=== PATIENT | female | born 1985 | race Caucasian/White ===

== ENCOUNTER 2017-03-21 09:33 | Emergency (ER) | payer OTHER ==
[2017-03-21 09:42] VITALS: TEMP 97.8
[2017-03-21] MEDS ORDERED: ACETAMINOPHEN TAB 325 MG TAB PO STA (09:54)
--- NOTE | 2017-03-21 09:59 | ED ---
Back Pain HPI - General Chief Complaint: Back Pain/Injury Stated Complaint: pain, 10 weeks preg Time Seen by Provider: 03/21/17 09:43 Source: patient, RN notes reviewed Limitations: no limitations - History of Present Illness Initial Comments: Patient is 28-year-old female since he was here for evaluation of back pain. Patient states she was very found out she is . Patient states her last menstrual cycle was 01/18/17 that only lasted about 3 days. Patient states she is unable to see an HOT METAL MIXER OPERATOR until 2 weeks from now. Patient states she has a history of chronic mid back pain. Patient states she was going to dial painter. Patient states when she found out she is she discontinue taking all her medications. Patient states she's been off all her medications for the past 4 weeks. Patient states over the past 3 days she began developing lower back pain. 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 Patient states that she only was up to 5 pounds. Patient denies recent falls or trauma to her back. Patient denies actually twisting the wrong way. Patient denies pain radiating down her legs. Patient denies paresthesias. Patient denies saddle anesthesia. Patient denies urine or fecal incontinence. Patient also states been developing lower abdominal pain. Patient states she has a history of 1 previous about 10 years ago which resulted in a section. Patient denies vaginal bleeding. Patient denies abnormal vaginal discharge. Patient does states she has a history of herpes. Patient states is not currently active. Patient also states that she was diagnosed with cervical cancer about 10 years ago. Patient states she was treated by belly dancer and has not followed up with anyone since. Patient denies taking any Tylenol for pain. - Related Data Previous Rx's Medication Instructions Recorded Acetaminophen-Codeine 300-30mg 1 each PO Q4H PRN #10 tablet 03/12/16 [Tylenol #3] Penicillin V Potassium [Pen Vee K] 500 mg PO QID #40 tab 03/12/16 Allergies Allergy/AdvReac Type Severity Reaction Status Date / Time methocarbamol [From Robaxin] Allergy Rash/Hives Verified 03/21/17 09:42 Sulfa (Sulfonamide Allergy Rash/Hives Verified 03/21/17 09:42 Antibiotics) Review of Systems ROS Statement: Those systems with pertinent positive or pertinent negative responses have been documented in the HPI. ROS Other: All systems not noted in ROS Statement are negative. Past Medical History Past Medical History: Fibromyalgia, Seizure Disorder Additional Past Medical History / Comment(s): DDD. SEIZURES IN PAST DUE TO TRAUMA History of Any Multi-Drug Resistant Organisms: None Reported Past Surgical History: Section, Orthopedic Surgery, Tonsillectomy Past Psychological History: Anxiety, Bipolar, Depression Smoking Status: Current every day smoker Past Alcohol Use History: None Reported Past Drug Use History: Marijuana General Exam - General Exam Comments Initial Comments: Sitting in exam room, no acute distress. Limitations: no limitations General appearance: alert, in no apparent distress Head exam: Present: atraumatic, normocephalic, normal inspection Eye exam: Present: normal appearance ENT exam: Present: normal exam Neck exam: Present: normal inspection Respiratory exam: Present: normal lung sounds bilaterally. Absent: respiratory distress Cardiovascular Exam: Present: regular rate, normal rhythm, normal heart sounds GI/Abdominal exam: Present: soft, tenderness (Suprapubic pain), normal bowel sounds. Absent: distended, guarding, rebound, rigid External exam: Present: normal external exam Speculum exam: Present: normal speculum exam By manual exam: Present: normal by manual exam Extremities exam: Present: normal inspection Back exam: Present: normal inspection Neurological exam: Present: alert, oriented X3, CN II-XII intact, normal gait Psychiatric exam: Present: normal affect, normal mood Skin exam: Present: warm, dry, intact, normal color. Absent: rash Course Vital Signs 03/21/17 03/21/17 09:40 10:45 Temperature 97.8 F Pulse Rate 94 68 Respiratory 20 16 Rate Blood Pressure 130/81 118/56 O2 Sat by Pulse 99 100 Oximetry Medical Decision Making - Medical Decision Making Patient is a 31-year-old female presents to the emergency room for evaluation low back pain and abdominal pain. Back pain consistent with low back muscle spasming. Patient given Tylenol. Ultrasound shows no acute findings. Patient does have a viable IUP 8 weeks. Advised patient to follow-up with HOT METAL MIXER OPERATOR. Patient states she understands everything that was discussed with her. Return parameters discussed. Case discussed with Dr. Cai. - Lab Data Lab Results 03/21/17 03/21/17 03/21/17 Range/Units 09:55 09:55 10:09 Urine Color Yellow Urine Appearance Turbid H (Clear) Urine pH 8.0 (5.0-8.0) Ur Specific [place] 1.011 (1.001-1.035) Urine Protein Negative (Negative) Urine Glucose (UA) Negative (Negative) Urine Ketones Negative (Negative) Urine Blood Negative (Negative) Urine Nitrite Negative (Negative) Urine Bilirubin Negative (Negative) Urine Urobilinogen <2.0 (<2.0) mg/dL Ur Leukocyte Esterase Negative (Negative) Ur Squamous Epith Cells 2 (0-4) /hpf Amorphous Sediment Many H (None) /hpf Urine Bacteria Rare H (None) /hpf Urine Mucus Rare H (None) /hpf Urine HCG, Qual Detected (Not Detectd) Trichomonas Ag (Rapid) Negative (Negative) - Radiology Data Radiology results: report reviewed, image reviewed Disposition Clinical Impression: Acute low back pain, Abdominal pain during Disposition: HOME SELF-CARE Condition: Good Instructions: Acute Low Back Pain (ED), Abdominal Pain in (ED) Additional Instructions: Take Tylenol as needed for pain. Alternate ice and heat. Please follow up with HOT METAL MIXER OPERATOR. If any new symptom arises or symptoms worsen, return to ER as soon as possible. Referrals: Tyler Quintero DO [Doctor of Osteopathic Medicine] - 1-2 days Time of Disposition: 10:58
[2017-03-21 10:10] LABS: Amorphous Sediment,Urine Many /hpf; Appearance,Urine Turbid (Clear); Bacteria,Urine Rare /hpf; Bilirubin,Urine Negative (Negative); Glucose,Urine (UA) Negative (Negative); Ketones,Urine Negative (Negative); Leukocyte Esterase,Urine Negative (Negative); Mucus,Urine Rare /hpf; Nitrite,Urine Negative (Negative); Particle Count 43600; Protein,Urine Negative (Negative); Specific Gravity,Urine 1.011 (1.001-1.035); Squamous Epithelial Cell,Urine 2 /hpf (0-4); UA Billing (MACRO vs. MICRO) MICRO; Urobilinogen,Urine <2.0 mg/dL (<2.0)
[2017-03-21 10:47] VITALS: BP 118/56; PULSE 68; RESP 16
--- NOTE | 2017-03-21 10:48 | US ---
EXAMINATION TYPE: US OB <=14 wks DATE OF EXAM: 03/21/2017 COMPARISON: NONE CLINICAL HISTORY: Pain. Pt states back pain x 1 day EXAM PERFORMED: Transabdominal (TA) EXAM MEASUREMENTS: GESTATIONAL AGE / DATING Physician Established: Not yet established Dates by LMP: (8 weeks/6 days) EDC: 10/25/2017 Dates by First Scan: No prior Dates by Current Scan for: (8 weeks/0 days) EDC: 10/31/2017 MATERNAL ANATOMY Uterus: 8.9 x 5.6 x 6.2 cm Right Ovary: 1.9 x 1.7 x 1.6 cm Left Ovary: 3.9 x 2.8 x 2.9 cm Post CDS / Adnexa: wnl Presence of free fluid: No Presence of corpus luteal cyst: Left Ovary= 2.7 x 2.3 x 2.2 cm Presence of subchorionic bleed: No GESTATION / SURVEY CRL: 1.6 cm (8 weeks/0 days) MSD: wnl Yolk Sac (normal less than 6mm): 3mm Heart Rate: 157 bpm Rhythm: Normal IUP: Viable IUP Date of LMP: 01/18/2017 IMPRESSION: Single, viable IUP/ No abnormality seen at this time. Left ovarian corpus luteal cyst.
== END 2017-03-21 11:06 | disposition home or self-care (01) ==
LOC: EC 09:33
DX: O99.89 Other specified diseases and conditions complicating pregnancy, childbirth and the puerperium (principal); O99.331 Smoking (tobacco) complicating pregnancy, first trimester; M54.5 Low back pain; R10.30 Lower abdominal pain, unspecified; F17.200 Nicotine dependence, unspecified, uncomplicated; Z3A.08 8 weeks gestation of pregnancy; Z88.2 Allergy status to sulfonamides; Z88.8 Allergy status to other drugs, medicaments and biological substances
CPT/HCPCS: 76801; 81001; 81025; 87070; 87205; 87491; 87591; 87808; 99284

== ENCOUNTER → 2017-04-09 | Outpatient (CLI) | payer OTHER ==
--- NOTE | 2017-04-09 09:32 | US ---
EXAMINATION TYPE: US OB <= 14 wk fetus DATE OF EXAM: 04/09/2017 COMPARISON: US March 21, 2017 CLINICAL HISTORY: Confirm Dates Z36. EXAM PERFORMED: Transabdominal (TA) EXAM MEASUREMENTS: GESTATIONAL AGE / DATING Physician Established: not eshablished Dates by LMP: ( 11 weeks/4 days) EDC: 10/25/2017 Dates by First Scan: (10 weeks/5 days) EDC: 10/31/2017 Dates by Current Scan for: (11 weeks/1 days) EDC: 10/28/2017 MATERNAL ANATOMY Uterus: 11.9 x 7.9 x 9.3 Right Ovary: not visualized Left Ovary: 3.1 x 2.4 x 3.3 Post CDS / Adnexa: wnl Presence of free fluid: none Presence of corpus luteal cyst: left ovary measuring 2.0 x 1.8 x 1.7 Presence of subchorionic bleed: hypoechoic area around sac measuring 4.0 x 1.3 x 5.4 GESTATION / SURVEY CRL: 4.2 cm (11 weeks/1 days) Yolk Sac (normal less than 6mm): not seen Heart Rate: 149 bpm Rhythm: Normal IUP: Viable IUP Date of LMP: 01/18/2017 viable IUP that correlates with LMP. On current study yolk sac is not identified. Gestational sac and pole are redemonstrated. Note is made of new fairly moderate sized subchorionic hemorrhage along the deeper aspect of the gestation al sac. No free fluid is seen in pelvic cul-de-sac. On current study distinct right ovary is not clearly seen. IMPRESSION: Single live intrauterine gestation is redemonstrated. Mean crown-rump length is 4.2 cm corresponding to 11 weeks 1 day old fetus. New moderate size subchorionic hemorrhage is felt present. Consider shor t-term ultrasound follow-up.
== END | disposition home or self-care (01) ==
LOC: RADUSWWP 07:38
PROVIDERS: ATTEND Obstetrics & Gynecology
DX: Z36 Encounter for antenatal screening of mother (principal); Z3A.11 11 weeks gestation of pregnancy
CPT/HCPCS: 76801

== ENCOUNTER → 2017-04-12 | Outpatient (CLI) | payer OTHER ==
[2017-04-12 09:55] LABS: CH 30.8; CHCM 34.1; HCT 35.4 % (34.0-46.0); HDW 2.43; HGB 11.7 gm/dL (11.4-16.0); MCHC 33.1 g/dL (31.0-37.0); MCV 90.6 fL (80.0-100.0); RBC 3.91 m/uL (3.80-5.40); RDW 13.3 % (11.5-15.5); WBC 9.6 k/uL (3.8-10.6)
[2017-04-12 10:26] LABS: Non-African American GFR(MDRD) >60 (>60 ml/min/1.73 sqM)
[2017-04-12 10:57] LABS: Hepatitis B Surface Ag Index 0.05
[2017-04-12 16:46] LABS: Treponemal Ab Non-Reactive (Non-Reactive)
[2017-04-13 04:35] LABS: Toxoplasma Antibody (IgG) <3.0 IU/mL (<7.2)
== END | disposition home or self-care (01) ==
LOC: LABWHC1 08:33
PROVIDERS: ATTEND Obstetrics & Gynecology
DX: Z34.81 Encounter for supervision of other normal pregnancy, first trimester (principal)
CPT/HCPCS: 36415; 82565; 82950; 85027; 86762; 86777; 86778; 86780; 86850; 86900; 86901; 87340; 87390

== ENCOUNTER → 2017-06-02 | Outpatient (CLI) | payer OTHER ==
[2017-06-03 09:41] LABS: Alpha Fetoprotein 63.3 ng/mL; B-HCG (M.O.M.) 1.38; Gestational Age (days) 2; Human Chorionic Gonadotropin 23.9 IU/mL; Inhibin A (M.O.M.) 0.59; Interpretation SeeBelow; Maternal Age at EDD (Yrs) 30; Smoker Yes; Unconjugated Estriol (M.O.M.) 1.04
== END | disposition home or self-care (01) ==
LOC: LABWHC1 08:16
PROVIDERS: ATTEND Obstetrics & Gynecology
DX: Z34.02 Encounter for supervision of normal first pregnancy, second trimester (principal)
CPT/HCPCS: 36415; 82105; 82677; 84702; 86336

== ENCOUNTER 2017-10-25 01:00 | Inpatient (IN) | payer OTHER ==
[2017-10-25] MEDS ORDERED: LACTATED RINGERS 1,000 ML IV SCH ×2 (01:28)
[2017-10-25] MEDS ORDERED: CITRIC ACID-SODIUM CITRATE 15 ML CUP PO ONE (01:32)
[2017-10-25 02:06] VITALS: BMI 26.4
[2017-10-25 03:15] LABS: Basophils # (A) 0.1 k/uL (0-0.2); Basophils % (A) 0 %; Eosinophils # (A) 0.1 k/uL (0-0.7); Eosinophils % (A) 1 %; HCT 33.6 % (34.0-46.0); Lymphocytes # (A) 3.5 k/uL (1.0-4.8); Lymphocytes % (A) 22 %; MCH 28.9 pg (25.0-35.0); MCHC 32.8 g/dL (31.0-37.0); MCV 88.1 fL (80.0-100.0); Mean Platelet Volume 8.3; Monocytes # (A) 0.6 k/uL (0-1.0); Monocytes % (A) 4 %; Neutrophils % (A) 71 %; Platelet Count 463 k/uL (150-450); RBC 3.82 m/uL (3.80-5.40); WBC 15.5 k/uL (3.8-10.6)
[2017-10-25] MEDS ORDERED: ceFAZolin IN SWFI 2 GM/20 ML SYRINGE IVP ONE (05:30)
[2017-10-25] MEDS ORDERED: MORPHINE SULFATE (PF) 0.3 MG/0.3 ML SYR ONE (06:00)
[2017-10-25] MEDS ORDERED: OXYTOCIN 10 UNIT/ML 1 ML VIAL ONE (06:00)
[2017-10-25] MEDS ORDERED: KETOROLAC 30 MG/ML 1 ML VIAL ONE (06:00)
[2017-10-25] MEDS ORDERED: diphenhydrAMINE 50 MG/ML 1 ML VIAL ONE (06:00)
[2017-10-25] MEDS ORDERED: ONDANSETRON 4 MG/2 ML VIAL ONE (06:00)
[2017-10-25] MEDS ORDERED: DEXAMETHASONE SOD PHOS (MDV) 100 MG/10 ML VIAL ONE (06:00)
[2017-10-25] MEDS ORDERED: NALBUPHINE 10 MG/ML AMPUL ONE (06:00)
--- NOTE | 2017-10-25 06:57 | P.HPOB ---
History of Present Illness H&P Date: 10/25/17 Chief Complaint: Spontaneous rupture of membranes This is a 32-year-old female 3 para 1 with an estimated date of confinement of 10/25/2017, estimated gestational age of 40-0/7 weeks, who presents to labor and delivery with complaints of spontaneous rupture membranes at approximately 12:15 AM today. She denied any regular contractions. care has been with Dr. Quintero and has been uncomplicated per patient. labs: HIV-nonreactive Syphilis antibody-nonreactive 1 hour Glucola-58 Hepatitis B surface antigen-negative Hemoglobin-11.7 Toxoplasma-negative Rubella-low positive Blood type-A+ Antibody screen-negative Quad screen-negative Group B streptococcus-negative Obstetrical history: . History of 1 miscarriage and 1 section at 36 weeks for preeclampsia and gestational diabetes. Review of Systems Constitutional: Denies chills, Denies fever Eyes: denies blurred vision, denies pain Cardiovascular: Denies chest pain, Denies shortness of breath Respiratory: Denies cough Genitourinary: Reports Musculoskeletal: Reports low back pain Integumentary: Denies pruritus, Denies rash Neurological: Denies numbness, Denies weakness Psychiatric: Denies anxiety, Denies depression Past Medical History Past Medical History: Cancer, Fibromyalgia, Seizure Disorder Additional Past Medical History / Comment(s): Hx DDD,cervical CA,SEIZURES for approx 6 mos due to a closed head injury approx 2009. History of Any Multi-Drug Resistant Organisms: None Reported Past Surgical History: Section, Orthopedic Surgery, Tonsillectomy Additional Past Surgical History / Comment(s): cyst removed rt labia Past Anesthesia/Blood Transfusion Reactions: Motion Sickness Additional Past Anesthesia/Blood Transfusion Reaction / Comment(s): states "grandmother has hx fungal meningitis r/t ear infection/ran high fever with ear surgery-pt not sure if fever r/t meningitis or anesthesia."Pt also states "has had no problems with prior anesthesia." Past Psychological History: Anxiety, Bipolar, Depression Smoking Status: Current every day smoker Past Alcohol Use History: None Reported Additional Past Alcohol Use History / Comment(s): started smoking at age 10-1 and 1 1/2ppd Past Drug Use History: Marijuana Additional Drug Use History / Comment(s): no marijuana in 6-7 mos - Past Family History Mother Family Medical History: Cancer Additional Family Medical History / Comment(s): cervical Medications and Allergies Home Medications Medication Instructions Recorded Confirmed Type Pnv,Calcium 72/Iron/Folic Acid 1 tab PO DAILY 07/13/17 10/21/17 History [ Plus Tablet] Allergies Allergy/AdvReac Type Severity Reaction Status Date / Time latex Allergy Swelling,itching,skin Verified 10/25/17 01:11 redness methocarbamol [From Robaxin] Allergy Rash/Hives Verified 10/25/17 01:11 Sulfa (Sulfonamide Allergy Rash/Hives Verified 10/25/17 01:11 Antibiotics) Exam Osteopathic Statement: *. No significant issues noted on an osteopathic structural exam other than those noted in the History and Physical/Consult. - Vital Signs Vital signs: Vital Signs Temp Pulse Resp BP 10/25/17 01:32 97.2 F L 103 H 16 148/74 10/25/17 01:28 97.2 F L 103 H 16 148/74 Intake and Output 10/24/17 10/24/17 10/25/17 14:59 22:59 06:59 Other: Weight 74.389 kg Patient Weight 10/25/17 06:59 Weight 74.389 kg HEENT: Within normal limits Heart: Regular rate and rhythm Lungs: Clear to auscultation bilaterally Abdomen: Soft, nontender heart tones: Reactive Contractions: Rare Cervix exam: Positive amnisure with clear fluid noted. Cervix closed. Extremities: Negative Homans Results Result Diagrams: 10/25/17 02:30 Abnormal Lab Results - Last 24 Hours (Table) 10/25/17 Range/Units 02:30 WBC 15.5 H (3.8-10.6) k/uL Hgb 11.0 L (11.4-16.0) gm/dL Hct 33.6 L (34.0-46.0) % Plt Count 463 H (150-450) k/uL Neutrophils # 11.0 H (1.3-7.7) k/uL Assessment and Plan (1) 40 weeks gestation of Current Visit: Yes Status: Acute Code(s): Z3A.40 - 40 WEEKS GESTATION OF SNOMED Code(s): 95743769 (2) Previous delivery affecting Current Visit: Yes Status: Acute Code(s): O34.219 - MATERNAL CARE FOR UNSP TYPE SCAR FROM PREVIOUS DEL SNOMED Code(s): 392733001 (3) Family planning Current Visit: Yes Status: Acute Code(s): Z30.09 - ENCOUNTER FOR OTH GENERAL CNSL AND ADVICE ON CONTRACEPTION SNOMED Code(s): 912110439 Plan: Admission. We'll proceed with repeat section with bilateral partial salpingectomy. I have discussed the risks, benefits, and alternative therapies for the above- mentioned procedure and for both sedation/anesthesia as well as necessary blood products administration, if indicated, as they pertain to this patient. The patient has indicated her understanding and acceptance of the risks and procedures discussed.
[2017-10-25] MEDS ORDERED: CELLULOSE,OXIDIZED 1 EACH EACH MISCELLANE ONE (07:05)
--- NOTE | 2017-10-25 07:05 | P.OP ---
Date of Procedure: 10/25/17 Preoperative Diagnosis: 1. Intrauterine at 40-0/7 weeks. 2. History of previous section. 3. Family-planning. Postoperative Diagnosis: Same Procedure(s) Performed: Repeat low transverse section Bilateral partial salpingectomy Anesthesia: spinal (Duramorph) Surgeon: Darline Nevarez [employer] Manager #1: Shannon Pettit Estimated Blood Loss (ml): 600 Pathology: other (Placenta, portions of right and left fallopian tubes) Condition: stable Disposition: floor Indications for Procedure: This is a 32-year-old female 3 para 1 at 40-0/7 weeks who presented with rupture of membranes with clear fluid noted. She was not noted to be solitario at the time. She was then scheduled for a repeat section with bilateral partial salpingectomy for later in the morning. I have discussed the risks, benefits, and alternative therapies for the above- mentioned procedure and for both sedation/anesthesia as well as necessary blood products administration, if indicated, as they pertain to this patient. The patient has indicated her understanding and acceptance of the risks and procedures discussed. Operative Findings: A viable male infant is noted in the vertex presentation with scores of 9 at 1 minute and 9 at 5 minutes and weight of 7 lbs. 3 oz. Normal uterus tubes and ovaries are noted. There is noted to be some omental adhesions to the left ovary and tube area. Description of Procedure: The patient is taken to the operating room where she is placed in the dorsal supine position with leftward tilt after spinal Duramorph anesthesia is given. She is prepped and draped in the normal sterile fashion. Skin was tested and found to be adequately anesthetized. A Pfannenstiel skin incision was made with a scalpel through the previous laparotomy scar. A second knife was used to carry the incision down to the underlying layer of fascia. The fascia was nicked in the midline with a scalpel and then extended laterally bilaterally with Dent scissors. The anterior lip of the fascia was grasped with 2 Angela clamps and then dissected off the underlying rectus muscle in the midline with Dent scissors. The inferior aspect of the fascial incision was grasped with 2 Angela clamps and dissected off the underlying rectus muscle and the midline with Dent scissors. Next the peritoneum layer was tented up with 2 hemostats and then entered sharply with the scalpel. The incision is extended superiorly and inferiorly with Metzenbaum scissors. Next a DeLee retractor is placed. The vesicouterine peritoneum is entered sharply with Metzenbaum scissors and extended laterally bilaterally with Metzenbaum scissors and then the bladder flap is pushed inferiorly. The lower uterine segment is incised in transverse fashion with the scalpel and then bluntly entered with a hemostat. Clear fluid is noted. The incision was then extended laterally bilaterally with 2 fingers. Next the 's head is delivered through the incision. Nose and mouth are bulb suctioned. The remainder of the infant is easily delivered and placed on mother's abdomen. Cord is clamped and cut. Infant is taken to warmer by nursing staff. Uterine fundus is gently massaged and placenta is delivered manually. Uterus is exteriorized and cleared of all clots and debris. Uterine incision is closed with 0 Vicryl suture in a running locked fashion. A second layer of 0 Vicryl suture is used in a running fashion for hemostasis. Once adequate hemostasis as assured, the vesicouterine peritoneum is reapproximated with 2-0 Vicryl suture in a running fashion. Attention is turned to the tubes. The right fallopian tube is grasped in the midportion with a hemostat and then the mesosalpinx is entered with Bovie cautery. 0 Vicryl suture is tied 2 times around both the proximal and distal portion of the tube. The knuckle of tube is then removed with Metzenbaum scissors. Next the ends of the tube are cauterized with Bovie cautery. The left fallopian tube was noted to have extensive omental adhesions covering over the tube and ovary. These omental adhesions were lysed with Bovie cautery. Once adequate hemostasis was noted, the left fallopian tube is grasped in the midportion and then the mesosalpinx entered with Bovie cautery. 0 Vicryl suture is tied around both the possible and distal portions of the tube 2 times. Next the knuckle of tube is removed with Metzenbaum scissors and the ends of the tube are cauterized. The posterior cul-de-sac is suctioned of all clots and debris. Uterus is returned to the abdomen. Interceed is placed over the left corneal region where the omental adhesions were removed from the uterus. Incision is noted to be hemostatic. Peritoneal layer is closed with 0 Vicryl suture in a running fashion. Muscle layer is reapproximated with 0 Vicryl suture in interrupted fashion. Fascia layer is then closed with 0 PDS suture with 2 sutures meeting in the midline and the knots buried in either side and in the midline. The subcutaneous tissue was then closed with 2-0 Vicryl suture. Skin layer was then closed with juwan. All sponge and needle counts are correct. The patient is taken to recovery room in stable condition.
[2017-10-25] MEDS ORDERED: diphenhydrAMINE 50 MG CAP PO PRN (07:41)
[2017-10-25] MEDS ORDERED: NALOXONE 0.4 MG/ML 1 ML VIAL IV PRN (07:41)
[2017-10-25] MEDS ORDERED: Acetaminophen-Codeine 300-30mg TAB PO PRN (07:41)
[2017-10-25] MEDS ORDERED: OXYTOCIN 20 UNITS/1000 ML NS 1,000 ML IV SCH (07:41)
[2017-10-25] MEDS ORDERED: diphenhydrAMINE 50 MG/ML 1 ML VIAL IVP PRN ×2 (07:41)
[2017-10-25] MEDS ORDERED: ZOLPIDEM 5 MG TAB PO PRN (07:41)
[2017-10-25] MEDS ORDERED: diphenhydrAMINE 25 MG CAP PO PRN (07:41)
[2017-10-25] MEDS ORDERED: SIMETHICONE 80 MG CHEWABLE PO PRN (07:41)
[2017-10-25] MEDS ORDERED: ONDANSETRON 4 MG/2 ML VIAL IVP PRN (07:41)
[2017-10-25] MEDS ORDERED: MEASLES-MUMPS-RUBELLA VACC/PF 12,500 UNIT/0.5 ML VIAL SQ ONE (07:41)
[2017-10-25] MEDS ORDERED: ACETAMINOPHEN TAB 325 MG TAB PO PRN (07:41)
[2017-10-25] MEDS ORDERED: METOCLOPRAMIDE 5 MG/ML 2 ML VIAL IVP PRN (07:41)
[2017-10-25] MEDS: LACTATED RINGERS 1,000 ML IV SCH ×2 (09:13→20:36)
[2017-10-25] MEDS: SENNOSIDES-DOCUSATE SODIUM 1 EACH TAB PO SCH ×2 (09:15→20:36)
[2017-10-25] MEDS ORDERED: HYDROmorphone 1 MG/ML 1 ML SYRINGE IVP PRN (10:50)
[2017-10-25] MEDS ORDERED: D5-0.45% NACL WITH KCL 20MEQ/L 1,000 ML IV SCH (11:00)
[2017-10-25] MEDS ORDERED: MAGNESIUM SULFATE-D5W PMX 1 GM in DEXTROSE/WATER 1 100ML.BAG IVPB SCH (11:00)
[2017-10-25] MEDS: KETOROLAC 30 MG/ML 1 ML VIAL IVP PRN ×2 (11:49→19:57)
[2017-10-25] MEDS ORDERED: HYOSCYAMINE ORAL DROPS 1.875 MG/15 ML BOTTLE PO SCH (12:00)
[2017-10-25] MEDS ORDERED: METOCLOPRAMIDE 5 MG/ML 2 ML VIAL IVP SCH (12:00)
[2017-10-25] MEDS ORDERED: SIMETHICONE 40 MG/0.6 ML DROPS 2,000 MG/30 ML BOTTLE PO SCH (13:00)
[2017-10-25] MEDS ORDERED: ceFAZolin IN SWFI 2 GM/20 ML SYRINGE IVP SCH (16:00)
[2017-10-25] MEDS: Acetaminophen-Codeine 300-30mg TAB PO PRN ×2 (16:57→23:57)
[2017-10-26] MEDS: LACTATED RINGERS 1,000 ML IV SCH (02:17)
[2017-10-26] MEDS: IBUPROFEN 600 MG TAB PO PRN ×4 (02:40→20:30)
[2017-10-26] MEDS: Acetaminophen-Codeine 300-30mg TAB PO PRN ×4 (06:01→22:41)
[2017-10-26] MEDS: SENNOSIDES-DOCUSATE SODIUM 1 EACH TAB PO SCH ×2 (08:11→20:31)
[2017-10-26 08:26] LABS: Anisocytosis Slight; Basophils # (A) 0.1 k/uL (0-0.2); Basophils % (A) 0 %; Eosinophils # (A) 0.1 k/uL (0-0.7); Eosinophils % (A) 1 %; HGB 10.7 gm/dL (11.4-16.0); Lymphocytes % (A) 19 %; MCH 28.8 pg (25.0-35.0); MCHC 32.3 g/dL (31.0-37.0); MCV 89.2 fL (80.0-100.0); Mean Platelet Volume 8.4; Monocytes # (A) 0.8 k/uL (0-1.0); Monocytes % (A) 4 %; Neutrophils # (A) 15.1 k/uL (1.3-7.7); Neutrophils % (A) 74 %; Platelet Count 440 k/uL (150-450); RDW 16.1 % (11.5-15.5); WBC 20.5 k/uL (3.8-10.6)
--- NOTE | 2017-10-26 08:26 | P.PNOBGPC ---
Subjective - Subjective Principal diagnosis: Postop day 1 Interval history: Overall Jacquie is doing very well. She is involuting, voiding and she is tolerating her diet. Voices no complaints. Patient reports: Reports appetite normal, Reports voiding normally, Reports pain well controlled, Reports ambulating normally [place]: doing well Objective - Vital Signs Latest vital signs: Vital Signs Temp Pulse Resp BP Pulse Ox 10/26/17 04:00 98.1 F 78 15 125/60 10/26/17 00:00 98 F 75 15 123/62 10/25/17 20:00 98 F 71 15 111/58 10/25/17 16:30 97.8 F 82 16 122/72 10/25/17 12:00 97.2 F L 66 16 138/68 98 10/25/17 09:00 97.0 F L 67 16 116/76 100 10/25/17 08:30 64 14 135/73 99 Intake and Output 10/25/17 10/26/17 10/26/17 22:59 06:59 14:59 Output Total 800 Balance -800 Output: Urine 800 Other: # Voids 800 1 - Exam Lungs: bilateral: normal Chest: Normal S1, Normal S2 Extremities: Present: normal Abdomen: Present: normal appearance, soft. Absent: distention, tenderness Incision: Present: normal, dry, intact Uterus: Present: normal, firm
--- NOTE | 2017-10-26 09:12 | P.PN ---
Progress Note - Text Anesthesia POD 1. Patient is status post section under spinal anesthesia with intra-thecal preservative free morphine 300 g. Minimal pruritus, good post-op analgesia, and no headache or other complication.
[2017-10-26] MEDS ORDERED: INFLUENZA VACCINE (6 MOS+) 60 MCG/0.5 ML SYRINGE IM ONE (14:47)
[2017-10-27] MEDS: IBUPROFEN 600 MG TAB PO PRN ×2 (03:30→09:12)
[2017-10-27] MEDS: Acetaminophen-Codeine 300-30mg TAB PO PRN ×2 (05:31→12:05)
[2017-10-27] MEDS: SENNOSIDES-DOCUSATE SODIUM 1 EACH TAB PO SCH (07:43)
[2017-10-27 08:10] VITALS: BP 132/79; PULSE 92; RESP 16; TEMP 98.4
--- NOTE | 2017-10-27 08:27 | P.DS ---
Providers Date of admission: 10/25/17 01:28 Expected date of discharge: 10/27/17 Attending physician: Tyler Quintero Primary care physician: Darline Nevarez [facility] Course: Overall Jacquie is doing very well postop day 2. She is involuting, voiding and she is tolerating her diet. She voices no complaints. Vital signs are stable and afebrile. Heart regular, lungs clear, extremities without pain. Abdomen is soft incisions clean dry and intact. We'll plan to remove juwan today and apply Steri-Strips. Prescriptions for Tylenol No. 3 and Motrin are provided. Discharge instructions were thoroughly reviewed. All questions are answered for her prior to discharge and she'll follow me in 1 week. Patient Condition at Discharge: Good Plan - Discharge Summary New Discharge Prescriptions: New Acetaminophen-Codeine 300-30mg [Tylenol #3] 1 tab PO Q4H PRN #30 tablet PRN Reason: Pain Ibuprofen [Motrin] 600 mg PO Q6HR PRN #30 tab PRN Reason: Pain No Action Pnv,Calcium 72/Iron/Folic Acid [ Plus Tablet] 1 tab PO DAILY Discharge Medication List Pnv,Calcium 72/Iron/Folic Acid [ Plus Tablet] 1 tab PO DAILY 07/13/17 [ History] Acetaminophen-Codeine 300-30mg [Tylenol #3] 1 tab PO Q4H PRN #30 tablet [Rx] Ibuprofen [Motrin] 600 mg PO Q6HR PRN #30 tab 10/27/17 [Rx] Follow up Appointment(s)/Referral(s): Tyler Quintero DO [Doctor of Osteopathic Medicine] - 1 Week Activity/Diet/Wound Care/Special Instructions: No heavy lifting, limit stairs and driving and pelvic rest. If any high temperatures, heavy bleeding, or severe pain call my office Discharge Disposition: HOME SELF-CARE
== END 2017-10-27 14:30 | disposition home or self-care (01) | DRG 766 ==
LOC: FBPOP 01:00 → 4FBP 01:28
PROVIDERS: ADMIT Obstetrics & Gynecology; ATTEND Obstetrics & Gynecology
PROC: 0UB70ZZ Excision of Bilateral Fallopian Tubes, Open Approach (ICD-10-PCS; 2017-10-25)
PROC: 3E0134Z Introduction of Serum, Toxoid and Vaccine into Subcutaneous Tissue, Percutaneous Approach (ICD-10-PCS; 2017-10-25)
PROC: 10D00Z1 Extraction of Products of Conception, Low, Open Approach (ICD-10-PCS; principal; 2017-10-25 06:00)
PROC: 3E0234Z Introduction of Serum, Toxoid and Vaccine into Muscle, Percutaneous Approach (ICD-10-PCS; 2017-10-26)
DX: O34.211 Maternal care for low transverse scar from previous cesarean delivery (principal); F17.200 Nicotine dependence, unspecified, uncomplicated; N85.8 Other specified noninflammatory disorders of uterus; Z3A.40 40 weeks gestation of pregnancy; Z37.0 Single live birth; Z30.2 Encounter for sterilization; Z23 Encounter for immunization; O99.334 Smoking (tobacco) complicating childbirth; M79.7 Fibromyalgia; Z79.899 Other long term (current) drug therapy; Z85.41 Personal history of malignant neoplasm of cervix uteri; Z86.32 Personal history of gestational diabetes; Z86.69 Personal history of other diseases of the nervous system and sense organs; Z88.2 Allergy status to sulfonamides; Z88.8 Allergy status to other drugs, medicaments and biological substances; Z91.040 Latex allergy status; Z86.59 Personal history of other mental and behavioral disorders; Z87.820 Personal history of traumatic brain injury
CPT/HCPCS: 59025; 84112; 85025; 86850; 86900; 86901; 88302; 88307; 90471; 90686; 90707; 99213

== ENCOUNTER → 2017-11-10 | Outpatient (CLI) | payer OTHER ==
--- NOTE | 2017-11-10 17:05 | US ---
EXAMINATION TYPE: US abdomen complete DATE OF EXAM: 11/10/2017 COMPARISON: US 2017 CLINICAL HISTORY: Abd mass R19.00. Midline lower abdominal palpable mass x 1 week EXAM MEASUREMENTS: Liver Length: 19.1 cm Gallbladder Wall: 0.3 cm CBD: 0.6 cm Spleen: 11.7 cm Right Kidney: 12.6 x 4.0 x 5.4 cm Left Kidney: 11.3 x 5.2 x 4.9 cm Pancreas: visualized portions wnl, tail obscured by overlying midline bowel gas Liver: enlarged at 19.1cm Gallbladder: borderline thickened wall at 0.3cm. Wall echo shadow is not entirely excluded. Clinical consideration for acute cholecystitis is recommended. This could be related to incomplete distention . Evidence for sonographic Vera's sign: no CBD: Normal at 0.6cm Spleen: visualized portions wnl, limited by rib shadowing Right Kidney: wnl Left Kidney: 0.5cm echogenic focus mid pole may be a renal stone without obstruction, limited by rib shadowing Upper IVC: wnl Abd Aorta: visualized portions wnl, mid and distal portion partially obscured by overlying midline b owel gas Scanned at patient's palpable area: patient states she is able to feel area better when standing so s can was done with patient in standing position: 2 superficial hypoechoic non vascular structures seen midline lower abdomen measuring 1.0 x 0.9 x 0.9cm and 1.0 x 0.4 x 0.6cm, possible hernia vs. other e tiology. Findings appear compatible with sac containing abdominal wall hernias. IMPRESSION: 1. Nonobstructing left renal stone. 2. Clinical consideration for acute cholecystitis is recommended. Findings could be related to incomp lete distention. Additional findings to suggest acute cholecystitis is not evident. 3. Suspected mesenteric fat containing anterior abdominal wall hernias.
== END | disposition home or self-care (01) ==
LOC: RADUSWWP 07:10
PROVIDERS: ATTEND Obstetrics & Gynecology
DX: N20.0 Calculus of kidney (principal)
CPT/HCPCS: 76700

== ENCOUNTER 2017-12-31 11:48 | Day surgery (SDC) | payer OTHER ==
[2017-12-24 15:46] VITALS: BMI 23.3
--- NOTE | 2017-12-31 07:09 | P.GSHP ---
History of Present Illness H&P Date: 12/31/17 CHIEF COMPLAINT: Ventral hernia. HISTORY OF PRESENT ILLNESS: The patient is a 32-year-old female who presents with a history of swelling along the umbilicus. Findings were consistent with hernia initial presentation. Now she presents for further evaluation and management. PAST MEDICAL HISTORY: Please see list. PAST SURGICAL HISTORY: Please see list. MEDICATIONS: Please see list. ALLERGIES: Please see list. SOCIAL HISTORY: No illicit drug use FAMILY HISTORY: No reports of Crohn disease or ulcerative colitis. REVIEW OF ORGAN SYSTEMS: CONSTITUTIONAL: No reports of fevers or chills. GI: Denies any blood in stools or constipation. PHYSICAL EXAM: VITAL SIGNS: Stable GENERAL: Well-developed pleasant female in no acute distress. HEENT: No scleral icterus. Extraocular movements grossly intact. Moist buccal mucosa. NECK: Supple without lymphadenopathy. CHEST: Unlabored respirations. Equal bilateral excursions. CARDIOVASCULAR: Regular rate and rhythm. Distal 2+ pulses. ABDOMEN: Soft, nondistended. Palpable defect of the midline. MUSCULOSKELETAL: No clubbing, cyanosis, or edema. ASSESSMENT: 1. Ventral hernia. PLAN: 1. Recommend proceeding with a robotic ventral hernia repair with mesh. 2. Benefits and risks of surgical intervention was discussed including possibility of open technique. 3. May need overnight observation. 4. DVT prophylaxis. 5. Antibiotic prophylaxis. Past Medical History Past Medical History: Cancer, Fibromyalgia, Seizure Disorder Additional Past Medical History / Comment(s): DDD,cervical CA, SEIZURES for approx 6 mos due to a closed head injury (2009), hypoglycemia- eats frequently. , Hx of gestational diabetes., frequent constipation., hernia., States poor vision right eye. History of Any Multi-Drug Resistant Organisms: None Reported Past Surgical History: Section, Orthopedic Surgery, Tonsillectomy Additional Past Surgical History / Comment(s): cyst removed rt labia, x2, cervical surgery "freezing & scrapping" for cancer. Past Anesthesia/Blood Transfusion Reactions: No Reported Reaction, Motion Sickness Additional Past Anesthesia/Blood Transfusion Reaction / Comment(s): states "grandmother has hx fungal meningitis r/t ear infection/ran high fever with ear surgery-pt not sure if fever r/t meningitis or anesthesia. Past Psychological History: Anxiety, Bipolar, Depression Additional Psychological History / Comment(s): NO CURRENT MEDS. Smoking Status: Current every day smoker Past Alcohol Use History: None Reported Additional Past Alcohol Use History / Comment(s): SMOKING FOR 10-15 YEARS. SMOKES 1 PPD. Past Drug Use History: Marijuana, Methamphetamine Additional Drug Use History / Comment(s): CURRENT MARIJUANA USE., PAST USE YEARS AGO OF METHAMPHETAMINE. - Past Family History Mother Family Medical History: Cancer Additional Family Medical History / Comment(s): cervical Medications and Allergies Home Medications Medication Instructions Recorded Confirmed Type Acetaminophen-Codeine 300-30mg 2 tab PO Q4-6H PRN 12/24/17 12/24/17 History [Tylenol #3] Acetaminophen/Diphenhydramine 1 tab PO HS PRN 12/24/17 12/24/17 History [Tylenol PM 500-25mg] Ibuprofen [Motrin] 800 mg PO Q8HR PRN 12/24/17 12/24/17 History Allergies Allergy/AdvReac Type Severity Reaction Status Date / Time latex Allergy Swelling,itching,skin Verified 12/24/17 15:17 redness methocarbamol [From Robaxin] Allergy Rash/Hives Verified 12/24/17 15:17 Sulfa (Sulfonamide Allergy Rash/Hives, Verified 12/24/17 15:17 Antibiotics) Swelling of throat, face, hands & feet.
[~2017-12-31 11:48] MED LIST: DEXAMETHASONE SOD PHOSPHATE 10 MG/ML 1 ML VIAL IV ONE; HEPARIN SODIUM,PORCINE 5,000 UNIT/ML 1 ML VIAL SQ ONE; LACTATED RINGERS 1,000 ML IV SCH; LIDOCAINE 1% 20 ML VIAL (10MG/ML) FOR IV START INTRADERMA PRN; MIDAZOLAM 2 MG/2 ML VIAL IV PRN; MORPHINE SULFATE 2 MG/ML SYRINGE IV PRN; ONDANSETRON 4 MG/2 ML VIAL IVP ONE; SCOPOLAMINE 1.5MG/72HR PATCH TRANSDERM ONE; ceFAZolin IN SWFI 2 GM/20 ML SYRINGE IVP ONE
[2017-12-31 12:06] VITALS: TEMP 97.6
[2017-12-31] MEDS ORDERED: LACTATED RINGERS 1,000 ML IV ONE (12:06)
[2017-12-31] MEDS ORDERED: LIDOCAINE 1% INJ 10MG/ML (20 ML MDV) ONE (12:31)
[2017-12-31] MEDS ORDERED: PROPOFOL 10 MG/ML 20 ML VIAL IV ONE (12:31)
[2017-12-31] MEDS ORDERED: GLYCOPYRROLATE 0.2 MG/ML 2 ML VIAL ONE (12:31)
[2017-12-31] MEDS ORDERED: fentaNYL (PF) 50 MCG/ML 2 ML AMP ONE (12:31)
[2017-12-31] MEDS ORDERED: KETOROLAC 30 MG/ML 1 ML VIAL ONE (12:31)
[2017-12-31] MEDS ORDERED: NEOSTIGMINE 1 MG/ML 10 ML VIAL ONE (12:31)
[2017-12-31] MEDS ORDERED: SUCCINYLCHOLINE CHLORIDE 100 MG/5 ML SYR IV ONE (12:31)
[2017-12-31] MEDS ORDERED: MIDAZOLAM 2 MG/2 ML VIAL ONE (12:31)
[2017-12-31] MEDS ORDERED: ROCURONIUM BROMIDE 10 MG/ML 10 ML VIAL IV ONE (12:31)
[2017-12-31] MEDS ORDERED: BUPIVACAINE (PF) 0.25% 30 ML VIAL SQ ONE (12:55)
[2017-12-31] MEDS ORDERED: HYDROcodone/APAP 5-325MG 1 EACH TAB PO ONE (16:00)
[2017-12-31 16:05] VITALS: RESP 18
[2017-12-31 17:22] VITALS: BP 128/84; PULSE 67
--- NOTE | 2017-12-31 17:44 | P.PCN ---
Date of Procedure: 12/31/17 Preoperative Diagnosis: Umbilical hernia Postoperative Diagnosis: Incarcerated umbilical hernia, 3 cm Procedure(s) Performed: Robotic-assisted repair of umbilical hernia 3 cm with mesh Anesthesia: ELIZABETH, local Surgeon: Kaelyn Patricia Estimated Blood Loss (ml): 20 Pathology: other (Incarcerated umbilical hernia) Condition: stable Disposition: floor
--- NOTE | 2018-01-05 10:56 | P.OP ---
Date of Procedure: 12/31/17 Description of Procedure: SURGEON: ELIANE PATRICIA MD [employer] SPECIALIST: MARIANNE KING PREOPERATIVE DIAGNOSES: 1. Initial umbilical and ventral hernia, epigastrium. 2. Tobacco abuse. POSTOPERATIVE DIAGNOSES: 1. Initial umbilical and ventral hernia, epigastrium, 3 cm. 2. Tobacco abuse. OPERATION: 1. Robotic-assisted da Aftab Xi laparoscopic repair of initial incisional incarcerated ventral hernia 3 [address] with [address] 11.4 cm circular mesh ANESTHESIA: General with local anesthetic. ESTIMATED BLOOD LOSS: 20 mL. SPECIMENS: Hernia sac IMPLANT: Ventralight ST 11.4 cm circular mesh, REF [id number] COMPLICATIONS: None. Pathology: other (Incarcerated umbilical hernia) Condition: stable Disposition: floor INDICATIONS: The patient is a 32-year-old female who presents with ventral hernia of the epigastrium. Surgical intervention with laparoscopic versus robotic and open techniques were reviewed. Placement of mesh was also reviewed. Benefits and risks were thoroughly described. Informed consent was obtained. DESCRIPTION OF PROCEDURE: The patient was brought into the operating room and laid in supine position. After general induction, the abdomen had been prepped and draped in standard sterile fashion. Ioban draping was also placed. Prior to incision, a timeout protocol was confirmed with surgical team regarding the patient's name including procedures to be performed. The robot was primed prior to the procedure. A field block using local anesthetis was placed along hernia site including the proposed port sites. Initial incision was made with an #11 blade along the left upper quadrant. A 0 degree 5 mm laparoscopic trocar entry was performed. Diagnostic laparoscopy demonstrated a large fascial defect of the umbilicus and epigastrium of 3 cm. A 12 mm trocar was placed along the left lateral abdominal wall approximately 12 cm lateral to the lower midline. An 8 mm port was placed along the left lower quadrant under direct localization. The 5-mm port was exchanged for an 8 mm robotic port. Placements of the ports were 20 cm from the target anatomy and approximately 10 cm apart. Next, a 11.[address] mesh was entered into abdominal cavity under direct visualization with 0 V-Loc sutures anchored equidistant along the edge of the mesh along the rough side of the mesh that was marked. The [employer] Xi robot was previously primed, prepped and draped then docked along the right side of the patient. I then sat at the robot Da Aftab Xi console where working arms of the robot including Bovie cautery connected to robotic scissors and graspers placed by the care assistant. Adhesions along the midline were initially addressed with scissors and gentle retraction along the small bowel without enterotomy. The hernia bordering fascia was cleaned of peritoneal fat to allow for 3 to 5 cm margin of the mesh. Next, hemostasis was checked with cautery. The hernia defect was oversewn using 0-V LOC with imbrication 2. Ventralight ST 11.4 cm mesh was placed with the rough side of the mesh toward the anterior abdominal wall. The smooth side was placed towards the bowel. Starting from 12 o'clock, 2-0 V-Loc suture was sewn from peritoneum to fascia to the mesh approach. A final endoscopic imaging was obtained. All instruments and pneumoperitoneum were evacuated from the abdominal cavity. The da Aftab SI robot was undocked from the patient. I re-scrubbed into the case for closure of incisions. The fascia of the 12-mm port was probed and was closed using 0 Vicryl and Liang Ardon. The incisions were reapproximated using 4-0 Monocryl in an interrupted subcuticular fashion. Dermabond was applied to the skin. At the end of the procedure, needle, sponge, and instrument count had been verified correct by surgical services tech. The patient was taken to the postanesthesia care unit in stable condition with abdominal binder. Console time 31 minutes FINDINGS: 1. Umbilical ventral hernia, 3 cm. Plan - Discharge Summary Discharge Rx Participant: Yes New Discharge Prescriptions: New HYDROcodone/APAP 5-325MG [[place] 5-325] 1 tab PO Q6HR PRN #15 tab PRN Reason: Pain Ibuprofen [Motrin] 600 mg PO Q8HR PRN #30 tab PRN Reason: Pain HYDROcodone/APAP 7.5-325MG [[place] 7.5-325] 1 each PO Q4H PRN #20 tab PRN Reason: Pain Continue Ibuprofen [Motrin] 800 mg PO Q8HR PRN PRN Reason: Pain Discontinued Acetaminophen-Codeine 300-30mg [Tylenol #3] 2 tab PO Q4-6H PRN PRN Reason: Pain Acetaminophen/Diphenhydramine [Tylenol PM 500-25mg] 1 tab PO HS PRN PRN Reason: Insomnia Discharge Medication List Ibuprofen [Motrin] 800 mg PO Q8HR PRN 12/24/17 [History] HYDROcodone/APAP 5-325MG [[place] 5-325] 1 tab PO Q6HR PRN #15 tab 12/31/17 [Rx] HYDROcodone/APAP 7.5-325MG [[place] 7.5-325] 1 each PO Q4H PRN #20 tab 01/04/18 [ Rx] Ibuprofen [Motrin] 600 mg PO Q8HR PRN #30 tab 01/04/18 [Rx] Follow up Appointment(s)/Referral(s): Eliane Patricia MD [STAFF PHYSICIAN] - 01/04/18 4:30 pm Patient Instructions/Handouts: *Surgery [facility] - (Anesthesia) Discharge Instructions Outpatient Surgery, *[facility] - Scopalamine Patch Instructions, Laparoscopic Herniorrhaphy (DC), Abdominal Binder (DC), Ventral Hernia Repair ( DC) Activity/Diet/Wound Care/Special Instructions: No lifting over 4 pounds in 2 weeks. May shower. No bathtub soaks. Discharge Disposition: HOME SELF-CARE
== END 2017-12-31 17:39 | disposition home or self-care (01) ==
LOC: OR 11:48
PROVIDERS: ATTEND Surgery Plastic and Reconstructive Surgery
DX: K42.0 Umbilical hernia with obstruction, without gangrene (principal); K66.0 Peritoneal adhesions (postprocedural) (postinfection); M79.7 Fibromyalgia; G40.909 Epilepsy, unspecified, not intractable, without status epilepticus; E16.2 Hypoglycemia, unspecified; F41.9 Anxiety disorder, unspecified; F31.9 Bipolar disorder, unspecified; F17.210 Nicotine dependence, cigarettes, uncomplicated; Z85.41 Personal history of malignant neoplasm of cervix uteri; Z88.2 Allergy status to sulfonamides; Z88.8 Allergy status to other drugs, medicaments and biological substances; Z91.040 Latex allergy status
CPT/HCPCS: 81025; 86900; 86901; 86850; 88302; 36415; 49653; C1781; J2250; J1644; J1100; J2710; J2405; J2001; J3010; J1885; J0330; J2704; J0690

== ENCOUNTER 2018-08-15 11:35 | Emergency (ER) | payer OTHER ==
[2018-08-15 12:32] VITALS: BP 141/92; PULSE 79; RESP 18; TEMP 97.7
[2018-08-15] MEDS ORDERED: KETOROLAC 60 MG/2 ML VIAL IM STA (12:46)
[2018-08-15] MEDS ORDERED: DIAZEPAM 5 MG TAB PO STA (12:46)
[2018-08-15] MEDS ORDERED: MORPHINE SULFATE 4 MG/ML SYRINGE IM STA (12:46)
--- NOTE | 2018-08-15 12:52 | ED ---
General Adult HPI - General Chief complaint: Extremity Injury, Upper Stated complaint: Neck/ shoulder pain Time Seen by Provider: 08/15/18 12:33 Source: patient, RN notes reviewed Mode of arrival: ambulatory Limitations: no limitations - History of Present Illness Initial comments: Patient a 32-year-old female presents emergency room today with a chief complaint of right-sided neck pain and shoulder pain that started yesterday. She states she woke up in the morning experiences some discomfort to the right neck. States is worse with rotation to the right. She does admit that later in the day showed her son who weighs approximately 25 pounds felt increased pain right shoulder and neck area. States worse this morning after trying some Epsom salt and he had a cystoscopy worse with rotation to the right. Patient denies any other injury or trauma. Patient denies any recent fever, chills, shortness of breath, chest pain, back pain, abdominal pain, nausea or vomiting, headaches or visual changes, or any other complaints. - Related Data Home Medications Medication Instructions Recorded Confirmed Ibuprofen [Motrin] 800 mg PO Q8HR PRN 12/24/17 08/15/18 Previous Rx's Medication Instructions Recorded Cyclobenzaprine [Flexeril] 10 mg PO TID #20 tab 08/15/18 Ibuprofen [Motrin] 800 mg PO Q6HR #30 tab 08/15/18 Allergies Allergy/AdvReac Type Severity Reaction Status Date / Time latex Allergy Swelling,itching,skin Verified 08/15/18 12:31 redness methocarbamol [From Robaxin] Allergy Rash/Hives Verified 08/15/18 12:31 Sulfa (Sulfonamide Allergy Rash/Hives, Verified 08/15/18 12:31 Antibiotics) Swelling of throat, face, hands & feet. Review of Systems ROS Statement: Those systems with pertinent positive or pertinent negative responses have been documented in the HPI. ROS Other: All systems not noted in ROS Statement are negative. Past Medical History Past Medical History: Cancer, Fibromyalgia, Seizure Disorder Additional Past Medical History / Comment(s): DDD,cervical CA, SEIZURES for approx 6 mos due to a closed head injury (2009), hypoglycemia- eats frequently. , Hx of gestational diabetes., frequent constipation., hernia., States poor vision right eye. History of Any Multi-Drug Resistant Organisms: None Reported Past Surgical History: Section, Hernia Repair, Orthopedic Surgery, Tonsillectomy Additional Past Surgical History / Comment(s): cyst removed rt labia, x2, cervical surgery "freezing & scrapping" for cancer. Past Anesthesia/Blood Transfusion Reactions: No Reported Reaction, Motion Sickness Additional Past Anesthesia/Blood Transfusion Reaction / Comment(s): states "grandmother has hx fungal meningitis r/t ear infection/ran high fever with ear surgery-pt not sure if fever r/t meningitis or anesthesia. Past Psychological History: Anxiety, Bipolar, Depression Smoking Status: Current every day smoker Past Alcohol Use History: None Reported Past Drug Use History: Marijuana, Methamphetamine - Past Family History Mother Family Medical History: Cancer Additional Family Medical History / Comment(s): cervical General Exam - General Exam Comments Initial Comments: General: The patient is awake and alert, in no distress, and does not appear acutely ill. Neck: The neck is supple, there is no tenderness or JVD. Musculoskeletal: Normal appearance of cervical, thoracic or lumbar spine. No step-off or deformity. No tenderness midline. Patient does have tenderness over the sternocleidomastoid on the right. Pain reproduced with rotation to the right side up with her neck. Pain under to palpation right trapezius area and worse with movements of extension and abduction of the right shoulder. Radial pulse 2+. Sensations intact. Neurological: A&O x 3. CN II-XII intact, There are no obvious motor or sensory deficits. Coordination appears grossly intact. Speech is normal. Skin: Skin is warm and dry and no rashes or lesions are noted. Psychiatric: Normal mood and affect. Limitations: no limitations Course Vital Signs 08/15/18 12:28 Temperature 97.7 F Pulse Rate 79 Respiratory 18 Rate Blood Pressure 141/92 O2 Sat by Pulse 99 Oximetry Medical Decision Making - Medical Decision Making Patient treated with pain medication of morphine, Toradol here in the emergency room and also given Valium for asthma/. She will be continued anti- inflammatories and muscle laxer at home. Advised to use heat to the area. Advised to position without. Symptoms worsen. Disposition Clinical Impression: Torticollis Disposition: HOME SELF-CARE Condition: Good Instructions: Spasmodic Torticollis (ED) Additional Instructions: Please continue heat to the area as discussed and use anti-inflammatories and muscle relaxant as prescribed. Please return to the emergency room symptoms increase worsen or for any other concerns. Prescriptions: Cyclobenzaprine [Flexeril] 10 mg PO TID #20 tab Ibuprofen [Motrin] 800 mg PO Q6HR #30 tab Is patient prescribed a controlled substance at d/c from ED?: No Referrals: None,Stated [Primary Care Provider] - 1-2 days Jean Vera MD [STAFF PHYSICIAN] - 1-2 days Time of Disposition: 12:52
== END 2018-08-15 14:11 | disposition home or self-care (01) ==
LOC: EC 11:35
DX: M43.6 Torticollis (principal); F17.200 Nicotine dependence, unspecified, uncomplicated; Z85.41 Personal history of malignant neoplasm of cervix uteri; Z91.040 Latex allergy status; Z88.2 Allergy status to sulfonamides; Z88.8 Allergy status to other drugs, medicaments and biological substances
CPT/HCPCS: 99283; J2270; J1885

== ENCOUNTER → 2018-11-02 | Outpatient (CLI) | payer OTHER ==
[2018-11-02 12:53] LABS: HCT 39.3 % (34.0-46.0); HGB 13.5 gm/dL (11.4-16.0); MCH 30.4 pg (25.0-35.0); MCHC 34.4 g/dL (31.0-37.0); MCV 88.3 fL (80.0-100.0); Mean Platelet Volume 8.3; Platelet Count 266 k/uL (150-450); RBC 4.45 m/uL (3.80-5.40); RDW 13.5 % (11.5-15.5); WBC 8.9 k/uL (3.8-10.6)
[2018-11-02 16:50] LABS: Albumin 5.2 g/dL (3.80-4.90); Albumin/Globulin Ratio 3.25 (1.20-2.10); Anion Gap 6.7 mmol/L (4.00-12.00); Calcium 9.8 mg/dL (8.7-10.3); Carbon Dioxide 26.3 mmol/L (21.6-31.8); Globulin 1.6 g/dL (1.6-3.3); Potassium 4.4 mmol/L (3.5-5.5); Total Bilirubin 0.3 mg/dL (0.3-1.2); Total Protein 6.8 g/dL (6.2-8.2)
== END ==
LOC: LABWHC1 12:08
PROVIDERS: ATTEND Surgery Plastic and Reconstructive Surgery
DX: K43.9 Ventral hernia without obstruction or gangrene (principal)
CPT/HCPCS: 36415; 80053; 85027

== ENCOUNTER 2018-11-04 05:51 | Day surgery (SDC) | payer OTHER ==
[2018-10-27 18:01] VITALS: BMI 23.3
[~2018-11-04 05:51] MED LIST changes: -DEXAMETHASONE SOD PHOSPHATE 10 MG/ML 1 ML VIAL IV ONE; -HEPARIN SODIUM,PORCINE 5,000 UNIT/ML 1 ML VIAL SQ ONE; -LACTATED RINGERS 1,000 ML IV SCH; -LIDOCAINE 1% 20 ML VIAL (10MG/ML) FOR IV START INTRADERMA PRN; -MIDAZOLAM 2 MG/2 ML VIAL IV PRN; -MORPHINE SULFATE 2 MG/ML SYRINGE IV PRN; -ONDANSETRON 4 MG/2 ML VIAL IVP ONE; -SCOPOLAMINE 1.5MG/72HR PATCH TRANSDERM ONE
[2018-11-04] MEDS ORDERED: LIDOCAINE 1% 20 ML VIAL (10MG/ML) FOR IV START INTRADERMA ONE (06:25)
[2018-11-04] MEDS ORDERED: LACTATED RINGERS 1,000 ML IV ONE ×2 (06:25→07:50)
[2018-11-04] MEDS ORDERED: DEXAMETHASONE SOD PHOSPHATE 10 MG/ML 1 ML VIAL IV ONE ×2 (07:00→07:04)
[2018-11-04] MEDS: HEPARIN SODIUM,PORCINE 5,000 UNIT/ML 1 ML VIAL SQ ONE ×2 (07:00→07:04)
[2018-11-04] MEDS ORDERED: ONDANSETRON 4 MG/2 ML VIAL IVP ONE ×2 (07:00→07:04)
--- NOTE | 2018-11-04 07:06 | P.GSHP ---
History of Present Illness H&P Date: 11/04/18 CHIEF COMPLAINT: Ventral hernia. HISTORY OF PRESENT ILLNESS: The patient is a 33-year-old female who presents with a history of swelling along the left upper abdomen. Findings were consistent with possible ventral hernia. Now she presents for further evaluation and management. PAST MEDICAL HISTORY: Please see list. PAST SURGICAL HISTORY: Please see list. MEDICATIONS: Please see list. ALLERGIES: Please see list. SOCIAL HISTORY: No illicit drug use FAMILY HISTORY: No reports of Crohn disease or ulcerative colitis. REVIEW OF ORGAN SYSTEMS: CONSTITUTIONAL: No reports of fevers or chills. GI: Denies any blood in stools or constipation. PHYSICAL EXAM: VITAL SIGNS: Stable GENERAL: Well-developed pleasant female in no acute distress. HEENT: No scleral icterus. Extraocular movements grossly intact. Moist buccal mucosa. NECK: Supple without lymphadenopathy. CHEST: Unlabored respirations. Equal bilateral excursions. CARDIOVASCULAR: Regular rate and rhythm. Distal 2+ pulses. ABDOMEN: Soft, nondistended. Tender along the upper abdomen. Protuberant. MUSCULOSKELETAL: No clubbing, cyanosis, or edema. ASSESSMENT: 1. Ventral hernia. 2. Morbid obesity, BMI 45.2 PLAN: 1. Recommend proceeding with robotic ventral hernia repair with mesh. 2. Benefits and risks of surgical intervention was discussed including possibility of open technique. 3. DVT prophylaxis. 4. Antibiotic prophylaxis. Past Medical History Past Medical History: Cancer, Fibromyalgia, Seizure Disorder Additional Past Medical History / Comment(s): hernia, DDD,cervical CA, SEIZURES for approx 6 mos due to a closed head injury (2009), Hx of gestational diabetes. , frequent constipation., hernia., States poor vision right eye. History of Any Multi-Drug Resistant Organisms: None Reported Past Surgical History: Adenoidectomy, Section, Hernia Repair, Orthopedic Surgery, Tonsillectomy, Tubal Ligation Additional Past Surgical History / Comment(s): cyst removed rt labia, x2, cervical surgery "freezing & scrapping" for cancer. Past Anesthesia/Blood Transfusion Reactions: No Reported Reaction, Motion Sickness Additional Past Anesthesia/Blood Transfusion Reaction / Comment(s): states "grandmother has hx fungal meningitis r/t ear infection/ran high fever with ear surgery-pt not sure if fever r/t meningitis or anesthesia. Smoking Status: Current every day smoker - Past Family History Mother Family Medical History: Cancer Additional Family Medical History / Comment(s): cervical Medications and Allergies Home Medications Medication Instructions Recorded Confirmed Type Acetaminophen/Diphenhydramine 1 tab PO HS 10/27/18 11/04/18 History [Tylenol PM 500-25mg] Ibuprofen [Motrin] 800 mg PO Q6HR PRN 10/27/18 11/04/18 History Allergies Allergy/AdvReac Type Severity Reaction Status Date / Time latex Allergy Swelling,itching,skin Verified 11/04/18 06:22 redness methocarbamol [From Robaxin] Allergy Rash/Hives Verified 11/04/18 06:22 Sulfa (Sulfonamide Allergy Anaphylaxis Verified 11/04/18 06:22 Antibiotics) Surgical - Exam Vital Signs Temp Pulse Resp BP Pulse Ox 97.4 F L 65 16 125/60 100 11/04/18 06:20 11/04/18 06:20 11/04/18 06:20 11/04/18 06:20 11/04/18 06:20
[2018-11-04] MEDS ORDERED: HYDROmorphone (PF) 1 MG/ML ONE (07:10)
[2018-11-04] MEDS ORDERED: MIDAZOLAM 2 MG/2 ML VIAL ONE (07:10)
[2018-11-04] MEDS ORDERED: GLYCOPYRROLATE 0.2 MG/ML 2 ML VIAL ONE (07:10)
[2018-11-04] MEDS ORDERED: ROCURONIUM BROMIDE 10 MG/ML 10 ML VIAL IV ONE (07:10)
[2018-11-04] MEDS ORDERED: LIDOCAINE 1% INJ 10MG/ML (20 ML MDV) ONE (07:10)
[2018-11-04] MEDS ORDERED: PROPOFOL 10 MG/ML 20 ML VIAL IV ONE (07:10)
[2018-11-04] MEDS ORDERED: ROPIVACAINE 5 MG/ML 30 ML VIAL ONE (07:10)
[2018-11-04] MEDS ORDERED: fentaNYL (PF) 50 MCG/ML 2 ML AMP ONE (07:10)
[2018-11-04] MEDS ORDERED: NEOSTIGMINE 1 MG/ML 10 ML VIAL ONE (07:10)
[2018-11-04] MEDS ORDERED: BUPIVACAIN-EPI 0.25%-1:200,000 30 ML VIAL SQ ONE (07:43)
[2018-11-04] MEDS ORDERED: HYDROmorphone 0.5 MG/0.5 ML SYRINGE IVP ONE (08:59)
[2018-11-04 09:03] VITALS: TEMP 97.3
[2018-11-04] MEDS ORDERED: MEPERIDINE 50 MG/ML SYRINGE IVP ONE ×3 (09:12→09:32)
--- NOTE | 2018-11-04 09:22 | P.OP ---
Date of Procedure: 11/04/18 Description of Procedure: SURGEON: KAELYN PATRICIA MD PREOPERATIVE DIAGNOSES: 1. Previous history of ventral hernia repair 2. Left upper quadrant abdominal pain 3. Ventral hernia, left upper quadrant, initial POSTOPERATIVE DIAGNOSES: 1. Previous history of ventral hernia repair 2. Left upper quadrant abdominal pain 3. Severe peritoneal adhesions greater omentum to the abdominal wall, epigastrium and left upper quadrant OPERATION: 1. Robotic-assisted da Aftab Xi laparoscopic extensive lysis of adhesions over 30 minutes COMPLICATIONS: None. Anesthesia: GETA, local Estimated Blood Loss (ml): 20 Pathology: none sent Condition: stable Disposition: same day OPERATIVE FINDINGS: 1. Severe peritoneal adhesions involving periumbilical area including left upper quadrant location of pain 2. No recurrent umbilical or bilateral inguinal hernias. 3. Mildly thickened gallbladder wall suspicious for underlying gallbladder disease INDICATIONS: The patient is a 33-year-old female who presents with moderate pain along the left upper quadrant. She had past history of ventral hernia repair a different location. She presents with concern of new hernia along the left upper quadrant. Surgical intervention of inguinal hernia repair with mesh. Informed consent was obtained. Robotic assisted laparoscopic approach was described. Benefits and risks of the procedure including but not limited to bleeding, infection, injury to the small bowel was described. Informed consent was obtained. DESCRIPTION OF PROCEDURE: Patient was brought to the operating room, placed in supine position. After general induction, the abdomen had been prepped and draped in standard sterile fashion. The robotic da Aftab XI system was primed. After a timeout protocol was performed, the patient had been prepped and draped in standard sterile fashion. The robot was docked along the right lateral abdomen. The patient was repositioned in reverse Trendelenburg position of 6 -degrees. A 5 mm 0 degrees laparoscopic trocar entry was performed along the right upper quadrant. The abdomen was insufflated to 15 mmHg pressure which she tolerated well. Diagnostic laparoscopy demonstrated severe intra-abdominal adhesions involving the midline at the umbilicus and left upper quadrant. The small bowel was unremarkable without evidence of dilation or suggestion of obstruction. Bleeding was identified along the right inferior surface of the liver from trocar entry. The area was cauterized. Next, three 8 mm robotic ports were placed along the right lateral abdomen. Please note that the ports were placed at least 8 cm away from the target anatomy. Instruments were interchanged using grasper, robotic suction tracer clerk and vessel sealer. I had sat at the console. Extensive lysis of adhesions over 30 minutes was performed. Carefully the adhesions were taken down without injury to the small bowel using vessel sealer. Severe adhesions along the left upper quadrant was also confirmed as the patient's location of pain without a hernia. No recurrent epigastric ventral hernia was identified. No involvement of small bowel was found. Completion lysis of adhesions confirmed no recurrent or new abdominal wall hernia at the location of her pain of the epigastrium and left upper quadrant. The robot was undocked. All pneumoperitoneum and instruments were evacuated from the abdominal cavity. The incisions were reapproximated using 4-0 Monocryl in an interrupted subcuticular fashion. Please note along the trocar sites, local anesthetic was placed as a field block prior to insertion of all instruments. Liquid glue was applied to the skin. At the end of the procedure needle, sponge, and instrument count had been verified correct by the surgical dental assistant. The patient was transferred to postanesthesia care unit in stable condition. Intraoperative images including findings were described to the patients family. Plan - Discharge Summary Discharge Rx Participant: No New Discharge Prescriptions: New HYDROcodone/APAP 7.5-325MG [[place] 7.5-325] 1 tab PO Q4H PRN 3 Days #18 tab PRN Reason: Pain Ibuprofen [Motrin] 600 mg PO Q8HR PRN #30 tab PRN Reason: Pain Simethicone 40 mg/0.6 ml Drops [Mylicon Drops] 40 mg PO Q6HR PRN #30 ml PRN Reason: Abdominal Distention No Action Acetaminophen/Diphenhydramine [Tylenol PM 500-25mg] 1 tab PO HS Ibuprofen [Motrin] 800 mg PO Q6HR PRN PRN Reason: Pain Discharge Medication List Acetaminophen/Diphenhydramine [Tylenol PM 500-25mg] 1 tab PO HS 10/27/18 [ History] Ibuprofen [Motrin] 800 mg PO Q6HR PRN 10/27/18 [History] HYDROcodone/APAP 7.5-325MG [[place] 7.5-325] 1 tab PO Q4H PRN 3 Days #18 tab 11/04 [Rx] Ibuprofen [Motrin] 600 mg PO Q8HR PRN #30 tab 11/04/18 [Rx] Simethicone 40 mg/0.6 ml Drops [Mylicon Drops] 40 mg PO Q6HR PRN #30 ml [Rx] Follow up Appointment(s)/Referral(s): Kaelyn Patricia MD [STAFF PHYSICIAN] - 11/16/18 Patient Instructions/Handouts: Lysis of Abdominal Adhesions (DC) Activity/Diet/Wound Care/Special Instructions: No lifting over 10 pounds in 1 week. May shower. No bathtub soaks. Discharge Disposition: HOME SELF-CARE
[2018-11-04 10:02] VITALS: RESP 16
[2018-11-04 10:37] VITALS: BP 129/75; PULSE 69
== END 2018-11-04 10:42 | disposition home or self-care (01) ==
LOC: OR 05:51
PROVIDERS: ATTEND Surgery Plastic and Reconstructive Surgery
DX: K66.0 Peritoneal adhesions (postprocedural) (postinfection) (principal); Z98.890 Other specified postprocedural states; E66.01 Morbid (severe) obesity due to excess calories; Z68.42 Body mass index [BMI] 45.0-49.9, adult; M79.7 Fibromyalgia; Z87.820 Personal history of traumatic brain injury; Z85.41 Personal history of malignant neoplasm of cervix uteri; F17.200 Nicotine dependence, unspecified, uncomplicated; M54.40 Lumbago with sciatica, unspecified side; Z79.899 Other long term (current) drug therapy; Z88.2 Allergy status to sulfonamides; Z88.8 Allergy status to other drugs, medicaments and biological substances; Z91.040 Latex allergy status
CPT/HCPCS: 49329; 81025; J2250; J1644; J1100; J2710; J2175; J2405; J2001; J3010; J1170 ×2; J2795; J2704; J0690; 64486

== ENCOUNTER 2019-01-12 08:52 | Emergency (ER) | payer OTHER ==
[2019-01-12] MEDS ORDERED: SODIUM CHLORIDE 0.9% 2,000 ML IV STA (09:04)
[2019-01-12] MEDS ORDERED: ONDANSETRON 4 MG/2 ML VIAL IVP STA ×2 (09:04→11:47)
[2019-01-12] MEDS ORDERED: KETOROLAC 30 MG/ML 1 ML VIAL IVP STA ×2 (09:19→11:27)
[2019-01-12] MEDS ORDERED: diphenhydrAMINE 50 MG/ML 1 ML VIAL IVP STA (09:19)
--- NOTE | 2019-01-12 09:22 | ED ---
Nausea/Vomiting/Diarrhea HPI - General Chief complaint: Nausea/Vomiting/Diarrhea Stated complaint: fever, vomiting, weakness Time Seen by Provider: 01/12/19 09:04 Source: patient, RN notes reviewed Mode of arrival: ambulatory Limitations: no limitations - History of Present Illness Initial comments: This a 33-year-old female presents emergency Department chief complaint of nausea, vomiting, flank pain. Patient states that she's been puking for over t he last 24 hours. Patient states that she does have pain on the right side of her low back region. She denies any dysuria, hematuria or urinary frequency. Denies any chance . She states she just had her menstrual cycle. Patient has diffuse abdominal discomfort. Denies fever, chills, chest pain, shortness of breath. Patient states she believes she has a stomach virus. Patient denies any sick contacts. She's had prior abdominal hernia surgery no other abdominal surgeries. - Related Data Previous Rx's Medication Instructions Recorded Ketorolac [Toradol] 10 mg PO Q8HR #15 tab 01/12/19 Ondansetron Odt [Zofran Odt] 4 mg PO Q8HR PRN #10 tab 01/12/19 Allergies Allergy/AdvReac Type Severity Reaction Status Date / Time latex Allergy Swelling,itching,skin Verified 01/12/19 09:05 redness methocarbamol [From Robaxin] Allergy Rash/Hives Verified 01/12/19 09:05 Sulfa (Sulfonamide Allergy Anaphylaxis Verified 01/12/19 09:05 Antibiotics) Review of Systems ROS Statement: Those systems with pertinent positive or pertinent negative responses have been documented in the HPI. ROS Other: All systems not noted in ROS Statement are negative. Past Medical History Past Medical History: Cancer, Fibromyalgia, Seizure Disorder Additional Past Medical History / Comment(s): hernia, DDD,cervical CA, SEIZURES for approx 6 mos due to a closed head injury (2009), Hx of gestational diabetes., frequent constipation., hernia., States poor vision right eye. History of Any Multi-Drug Resistant Organisms: None Reported Past Surgical History: Adenoidectomy, Section, Hernia Repair, Orthopedic Surgery, Tonsillectomy, Tubal Ligation Additional Past Surgical History / Comment(s): cyst removed rt labia, x2, cervical surgery "freezing & scrapping" for cancer. Past Anesthesia/Blood Transfusion Reactions: No Reported Reaction, Motion Sickness Additional Past Anesthesia/Blood Transfusion Reaction / Comment(s): states " grandmother has hx fungal meningitis r/t ear infection/ran high fever with ear surgery-pt not sure if fever r/t meningitis or anesthesia. Past Psychological History: Anxiety, Bipolar, Depression Smoking Status: Current every day smoker Past Alcohol Use History: None Reported Past Drug Use History: None Reported - Past Family History Mother Family Medical History: Cancer Additional Family Medical History / Comment(s): cervical General Exam Limitations: no limitations General appearance: alert, in no apparent distress Head exam: Present: atraumatic, normocephalic, normal inspection Eye exam: Present: normal appearance, PERRL, EOMI. Absent: scleral icterus, conjunctival injection, periorbital swelling ENT exam: Present: normal exam, normal oropharynx, mucous membranes moist Neck exam: Present: normal inspection. Absent: tenderness, meningismus, lymphadenopathy Respiratory exam: Present: normal lung sounds bilaterally. Absent: respiratory distress, wheezes, rales, rhonchi, stridor Cardiovascular Exam: Present: regular rate, normal rhythm, normal heart sounds. Absent: systolic murmur, diastolic murmur, rubs, gallop, clicks GI/Abdominal exam: Present: soft, tenderness (Mild diffuse), normal bowel sounds. Absent: distended, guarding, rebound, rigid Back exam: Present: CVA tenderness (R). Absent: CVA tenderness (L) Skin exam: Present: warm, dry, intact, normal color. Absent: rash Course Vital Signs 01/12/19 08:55 Temperature 98.1 F Pulse Rate 101 H Respiratory 22 Rate Blood Pressure 130/82 O2 Sat by Pulse 99 Oximetry Medical Decision Making - Medical Decision Making 33-year-old female presented emergency from for right flank pain, nausea vomiting. Patient does have mild leukocytosis most likely reactive. Patient's found to be slightly dehydrated, urinalysis showed mild blood CT shows renal salts, nonobstructing stones. She may have passed a small stone. Patient will be discharged with Toradol, Zofran. Return parameters were discussed. - Lab Data Result diagrams: 01/12/19 09:30 01/12/19 09:30 Lab Results 01/12/19 01/12/19 01/12/19 Range/Units 09:30 09:30 09:30 WBC 18.1 H (3.8-10.6) k/uL RBC 5.28 (3.80-5.40) m/uL Hgb 15.2 (11.4-16.0) gm/dL Hct 46.1 H (34.0-46.0) % MCV 87.4 (80.0-100.0) fL MCH 28.8 (25.0-35.0) pg MCHC 32.9 (31.0-37.0) g/dL RDW 14.4 (11.5-15.5) % Plt Count 394 (150-450) k/uL Neutrophils % 83 % Lymphocytes % 13 % Monocytes % 3 % Eosinophils % 1 % Basophils % 0 % Neutrophils # 14.9 H (1.3-7.7) k/uL Lymphocytes # 2.3 (1.0-4.8) k/uL Monocytes # 0.6 (0-1.0) k/uL Eosinophils # 0.1 (0-0.7) k/uL Basophils # 0.0 (0-0.2) k/uL Sodium 144 (137-145) mmol/L Potassium 3.8 (3.5-5.1) mmol/L Chloride 101 (98-107) mmol/L Carbon Dioxide 25 (22-30) mmol/L Anion Gap 18 mmol/L BUN 21 H (7-17) mg/dL Creatinine 0.73 (0.52-1.04) mg/dL Est GFR (CKD-EPI)AfAm >90 (>60 ml/min/1.73 sqM) Est GFR (CKD-EPI)NonAf >90 (>60 ml/min/1.73 sqM) Glucose 125 H (74-99) mg/dL Calcium 11.1 H (8.4-10.2) mg/dL Total Bilirubin 0.8 (0.2-1.3) mg/dL AST 16 (14-36) U/L ALT 21 (9-52) U/L Alkaline Phosphatase 60 (38-126) U/L Total Protein 9.2 H (6.3-8.2) g/dL Albumin 5.9 H (3.5-5.0) g/dL Lipase 44 (23-300) U/L Urine Color Urine Appearance (Clear) Urine pH (5.0-8.0) Ur Specific Harmony (1.001-1.035) Urine Protein (Negative) Urine Glucose (UA) (Negative) Urine Ketones (Negative) Urine Blood (Negative) Urine Nitrite (Negative) Urine Bilirubin (Negative) Urine Urobilinogen (<2.0) mg/dL Ur Leukocyte Esterase (Negative) Urine RBC (0-5) /hpf Urine WBC (0-5) /hpf Ur Squamous Epith Cells (0-4) /hpf Urine Mucus (None) /hpf Urine HCG, Qual Not Detected (Not Detectd) 01/12/19 Range/Units 09:30 WBC (3.8-10.6) k/uL RBC (3.80-5.40) m/uL Hgb (11.4-16.0) gm/dL Hct (34.0-46.0) % MCV (80.0-100.0) fL MCH (25.0-35.0) pg MCHC (31.0-37.0) g/dL RDW (11.5-15.5) % Plt Count (150-450) k/uL Neutrophils % % Lymphocytes % % Monocytes % % Eosinophils % % Basophils % % Neutrophils # (1.3-7.7) k/uL Lymphocytes # (1.0-4.8) k/uL Monocytes # (0-1.0) k/uL Eosinophils # (0-0.7) k/uL Basophils # (0-0.2) k/uL Sodium (137-145) mmol/L Potassium (3.5-5.1) mmol/L Chloride (98-107) mmol/L Carbon Dioxide (22-30) mmol/L Anion Gap mmol/L BUN (7-17) mg/dL Creatinine (0.52-1.04) mg/dL Est GFR (CKD-EPI)AfAm (>60 ml/min/1.73 sqM) Est GFR (CKD-EPI)NonAf (>60 ml/min/1.73 sqM) Glucose (74-99) mg/dL Calcium (8.4-10.2) mg/dL Total Bilirubin (0.2-1.3) mg/dL AST (14-36) U/L ALT (9-52) U/L Alkaline Phosphatase (38-126) U/L Total Protein (6.3-8.2) g/dL Albumin (3.5-5.0) g/dL Lipase (23-300) U/L Urine Color Dark Brown Urine Appearance Cloudy H (Clear) Urine pH 6.0 (5.0-8.0) Ur Specific Harmony 1.050 H (1.001-1.035) Urine Protein 3+ H (Negative) Urine Glucose (UA) Trace H (Negative) Urine Ketones 1+ H (Negative) Urine Blood Small H (Negative) Urine Nitrite Negative (Negative) Urine Bilirubin 1+ H (Negative) Urine Urobilinogen 4.0 (<2.0) mg/dL Ur Leukocyte Esterase Trace H (Negative) Urine RBC 6 H (0-5) /hpf Urine WBC 9 H (0-5) /hpf Ur Squamous Epith Cells 10 H (0-4) /hpf Urine Mucus Many H (None) /hpf Urine HCG, Qual (Not Detectd) Disposition Clinical Impression: Nausea & vomiting, Flank pain Disposition: HOME SELF-CARE Condition: Stable Instructions (If sedation given, give patient instructions): Acute Nausea and Vomiting (ED) Additional Instructions: Please return to the Emergency Department if symptoms worsen or any other concerns. Prescriptions: Ketorolac [Toradol] 10 mg PO Q8HR #15 tab Ondansetron Odt [Zofran Odt] 4 mg PO Q8HR PRN #10 tab PRN Reason: Nausea Is patient prescribed a controlled substance at d/c from ED?: No Referrals: None,Stated [Primary Care Provider] - 1-2 days Time of Disposition: 11:29
[2019-01-12 09:41] LABS: Appearance,Urine Cloudy (Clear); Bilirubin,Urine 1+ (Negative); Blood,Urine Small (Negative); Color,Urine Dark Brown; Glucose,Urine (UA) Trace (Negative); Ketones,Urine 1+ (Negative); Leukocyte Esterase,Urine Trace (Negative); Mucus,Urine Many /hpf; Nitrite,Urine Negative (Negative); Protein,Urine 3+ (Negative); RBC,Urine 6 /hpf (0-5); Squamous Epithelial Cell,Urine 10 /hpf (0-4)
[2019-01-12 09:42] LABS: Basophils % (A) 0 %; Eosinophils # (A) 0.1 k/uL (0-0.7); Eosinophils % (A) 1 %; HCT 46.1 % (34.0-46.0); HGB 15.2 gm/dL (11.4-16.0); Lymphocytes # (A) 2.3 k/uL (1.0-4.8); Lymphocytes % (A) 13 %; MCH 28.8 pg (25.0-35.0); MCHC 32.9 g/dL (31.0-37.0); MCV 87.4 fL (80.0-100.0); Mean Platelet Volume 8.6; Monocytes # (A) 0.6 k/uL (0-1.0); Monocytes % (A) 3 %; Neutrophils # (A) 14.9 k/uL (1.3-7.7); Neutrophils % (A) 83 %; Platelet Count 394 k/uL (150-450); RBC 5.28 m/uL (3.80-5.40); RDW 14.4 % (11.5-15.5); WBC 18.1 k/uL (3.8-10.6)
[2019-01-12 09:51] LABS: ALT 21 U/L (9-52); AST 16 U/L (14-36); Albumin 5.9 g/dL (3.5-5.0); Alkaline Phosphatase 60 U/L (38-126); Anion Gap 18 mmol/L; Blood Urea Nitrogen 21 mg/dL (7-17); Calcium 11.1 mg/dL (8.4-10.2); Carbon Dioxide 25 mmol/L (22-30); Chloride 101 mmol/L (98-107); Glucose 125 mg/dL (74-99); Lipase 44 U/L (23-300); Potassium 3.8 mmol/L (3.5-5.1); Sodium 144 mmol/L (137-145); Total Bilirubin 0.8 mg/dL (0.2-1.3); Total Protein 9.2 g/dL (6.3-8.2)
--- NOTE | 2019-01-12 11:20 | CT ---
EXAMINATION TYPE: CT abdomen pelvis wo con DATE OF EXAM: 01/12/2019 COMPARISON: Correlation ultrasound 11/10/2017 HISTORY: 33-year-old female right flank pain, Fever, vomiting and weakness CT DLP: 334.2 mGycm. Automated exposure control for dose reduction was used. TECHNIQUE: Contiguous axial scanning of the abdomen and pelvis without IV contrast. Coronal and sagit mason reconstructions performed. FINDINGS: Heart normal size without pericardial effusion. Lung bases clear without pleural effusion. Noncontrast appearance of the liver shows mild hepatomegaly at 19.1 cm. Noncontrast appearance of the gallbladder, adrenal glands, spleen with tiny anterior splenule, and pancreas appear within normal l imits. Punctate 1 mm calculus within each kidney without hydronephrosis. No suspicious calcification is identified along the course of either ureter. There are mild increased amorphous densities in the region of the renal pyramids suggesting concentra malorie renal salts. No dilated small bowel, free fluid, or free air. Portions of a normal caliber appendix is seen in the right lower quadrant. No pericolonic inflammatory change or significant stool burden. Bladder nondistended but shows mild circumferential wall thickening. Uterus and ovaries are visualize d. No abnormal fluid collection in the pelvis or pelvic lymphadenopathy. Bones: No osseous destructive process. IMPRESSION: 1. The kidneys show amorphous densities in the region of the bilateral medullary pyramids suggesting concentrated renal salts. A punctate 1 mm, nonobstructive renal calculus is present on either side. 2. No hydronephrosis or suspicious calculus along the course of either ureter. 3. Mild circumferential bladder wall thickening could relate to under distention or cystitis. 4. Mild hepatomegaly (19.1 cm).
[2019-01-12 11:45] VITALS: BP 126/93; PULSE 70; RESP 18; TEMP 99
== END 2019-01-12 11:43 | disposition home or self-care (01) ==
LOC: EC 08:52
DX: R11.2 Nausea with vomiting, unspecified (principal); R10.9 Unspecified abdominal pain; R19.7 Diarrhea, unspecified; R50.9 Fever, unspecified; D72.829 Elevated white blood cell count, unspecified; E86.0 Dehydration; F17.200 Nicotine dependence, unspecified, uncomplicated; Z91.040 Latex allergy status; Z88.8 Allergy status to other drugs, medicaments and biological substances; Z88.2 Allergy status to sulfonamides; Z85.41 Personal history of malignant neoplasm of cervix uteri
CPT/HCPCS: 36415; 80053; 83690; 85025; 81001; 81025; 74176; 99284; 96374; 96375 ×2; 96376 ×2; 96361; J1200; J2405; J1885

== ENCOUNTER 2019-03-15 10:58 | Emergency (ER) | payer OTHER ==
[2019-03-15 11:16] VITALS: RESP 16; TEMP 98.1
--- NOTE | 2019-03-15 12:46 | XR ---
EXAMINATION TYPE: XR foot complete RT DATE OF EXAM: 03/15/2019 CLINICAL HISTORY: pain TECHNIQUE: Frontal, lateral and oblique images of the right foot are obtained. COMPARISON: None. FINDINGS: There is no acute fracture/dislocation evident. The joint spaces appear within normal barriga its. The overlying soft tissue appears unremarkable. IMPRESSION: There is no acute fracture or dislocation. ICD 10 NO FRACTURE, INITIAL EVALUATION
--- NOTE | 2019-03-15 13:08 | ED ---
Extremity Problem HPI - General Chief complaint: Extremity Problem,Nontraumatic Stated complaint: Foot pain/swelling Time Seen by Provider: 03/15/19 12:13 Source: patient, RN notes reviewed, old records reviewed Mode of arrival: wheelchair Limitations: no limitations - History of Present Illness Initial comments: Patient is a 33 year old female with right foot pain after work today. Denies any fall or twisting or trauma. She is concerned for foot spur. She reports pain is worse over distal 4th and 5th metatarsal. 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 - Related Data Previous Rx's Medication Instructions Recorded Ketorolac [Toradol] 10 mg PO Q8HR #15 tab 01/12/19 Ondansetron Odt [Zofran Odt] 4 mg PO Q8HR PRN #10 tab 01/12/19 Allergies Allergy/AdvReac Type Severity Reaction Status Date / Time latex Allergy Swelling,itching,skin Verified 03/15/19 11:15 redness methocarbamol [From Robaxin] Allergy Rash/Hives Verified 03/15/19 11:15 Sulfa (Sulfonamide Allergy Anaphylaxis Verified 03/15/19 11:15 Antibiotics) Review of Systems ROS Statement: Those systems with pertinent positive or pertinent negative responses have been documented in the HPI. ROS Other: All systems not noted in ROS Statement are negative. Past Medical History Past Medical History: Cancer, Fibromyalgia, Seizure Disorder Additional Past Medical History / Comment(s): hernia, DDD,cervical CA, SEIZURES for approx 6 mos due to a closed head injury (2009), Hx of gestational diabetes., frequent constipation., hernia., States poor vision right eye. History of Any Multi-Drug Resistant Organisms: None Reported Past Surgical History: Adenoidectomy, Section, Hernia Repair, Orthopedic Surgery, Tonsillectomy, Tubal Ligation Additional Past Surgical History / Comment(s): cyst removed rt labia, x2, cervical surgery "freezing & scrapping" for cancer. Past Anesthesia/Blood Transfusion Reactions: No Reported Reaction, Motion Sickness Additional Past Anesthesia/Blood Transfusion Reaction / Comment(s): states "grandmother has hx fungal meningitis r/t ear infection/ran high fever with ear surgery-pt not sure if fever r/t meningitis or anesthesia. Past Psychological History: Anxiety, Bipolar, Depression Smoking Status: Current every day smoker Past Alcohol Use History: None Reported Past Drug Use History: None Reported - Past Family History Mother Family Medical History: Cancer Additional Family Medical History / Comment(s): cervical General Exam - General Exam Comments Initial Comments: This is a 33 year old female, no distress. Limitations: no limitations General appearance: alert, in no apparent distress Head exam: Present: atraumatic, normocephalic, normal inspection Eye exam: Present: normal appearance, PERRL, EOMI. Absent: scleral icterus, conjunctival injection, periorbital swelling ENT exam: Present: normal exam, mucous membranes moist Neck exam: Present: normal inspection. Absent: tenderness, meningismus, lymphadenopathy Respiratory exam: Present: normal lung sounds bilaterally. Absent: respiratory distress, wheezes, rales, rhonchi, stridor Cardiovascular Exam: Present: regular rate, normal rhythm, normal heart sounds. Absent: systolic murmur, diastolic murmur, rubs, gallop, clicks GI/Abdominal exam: Present: soft, normal bowel sounds. Absent: distended, tenderness, guarding, rebound, rigid Extremities exam: Present: normal inspection, full ROM, normal capillary refill. Absent: tenderness, pedal edema, joint swelling, calf tenderness Back exam: Present: normal inspection Neurological exam: Present: alert, oriented X3, CN II-XII intact Psychiatric exam: Present: normal affect, normal mood Skin exam: Present: warm, dry, intact, normal color. Absent: rash Course Vital Signs 03/15/19 03/15/19 11:13 13:09 Temperature 98.1 F Pulse Rate 97 73 Respiratory 16 16 Rate Blood Pressure 143/99 143/86 O2 Sat by Pulse 99 100 Oximetry Medical Decision Making - Medical Decision Making Patient is a 33 year old female wiht non traumatic right foot pain over fourth and fifth metatarsal. No bruising or deformity noted, and patient is NV intact. Patient foot xray is normal, no bone spurs. Discussed likely strain and discussed motrin and tylneol and ice for pain. All questions answered. - Radiology Data Radiology results: report reviewed Normal R foot xray. No fracture. Disposition Clinical Impression: Foot pain, right Disposition: HOME SELF-CARE Condition: Good Instructions (If sedation given, give patient instructions): Metatarsalgia (DC) Additional Instructions: Patient should wear good supportive shoes. Motrin Tylenol and ice the foot for pain. Patient should follow-up with podiatry. Return to the emergency department if any alarming signs or symptoms occur. Is patient prescribed a controlled substance at d/c from ED?: No Referrals: None,Stated [Primary Care Provider] - 1-2 days Anderson Coker DPM [STAFF PHYSICIAN] - 1-2 days Time of Disposition: 13:07
[2019-03-15 13:14] VITALS: BP 143/86; PULSE 73
== END 2019-03-15 13:14 | disposition home or self-care (01) ==
LOC: EC 10:58
DX: M79.671 Pain in right foot (principal); F17.200 Nicotine dependence, unspecified, uncomplicated; Z88.2 Allergy status to sulfonamides; Z88.8 Allergy status to other drugs, medicaments and biological substances; Z91.040 Latex allergy status; Z85.41 Personal history of malignant neoplasm of cervix uteri; Z98.890 Other specified postprocedural states
CPT/HCPCS: 99284

== ENCOUNTER 2019-07-08 16:04 | Emergency (ER) | payer OTHER ==
[2019-07-08 16:09] VITALS: TEMP 97.8
[2019-07-08] MEDS ORDERED: SODIUM CHLORIDE 0.9% 1,000 ML IV STA ×2 (16:22)
[2019-07-08] MEDS ORDERED: DIPH,PERTUS(ACELL)TETVAC-LF 0.5 ML VIAL IM ONE (16:25)
--- NOTE | 2019-07-08 16:26 | ED ---
Dizziness HPI - General Chief Complaint: Syncope Stated Complaint: Syncope, fall, hit head Time Seen by Provider: 07/08/19 16:12 Source: patient, RN notes reviewed, old records reviewed Mode of arrival: ambulatory Limitations: no limitations - History of Present Illness Initial Comments: Patient is a 33-year-old female presents emergency department today for evaluation with chief complaint of syncopal episode. Patient reports that she's not been eating or drinking well for the past few days. Patient reports yesterday felt dizzy and lightheaded but she was a laundromat. She went to walk out to her car to get some juice and a sitdown. Patient reports that when she got her car she passed out, hitting the back of her head on the cement. She sta juventino that that hitting her head causes directly to wake up. Patient complains of some neck pain as well. He does not blood thinners. She is a smoker. She denies any chest, abdominal or other pain. - Related Data Previous Rx's Medication Instructions Recorded Ketorolac [Toradol] 10 mg PO Q8HR #15 tab 01/12/19 Ondansetron Odt [Zofran Odt] 4 mg PO Q8HR PRN #10 tab 01/12/19 Allergies Allergy/AdvReac Type Severity Reaction Status Date / Time latex Allergy Swelling,itching,skin Verified 07/08/19 16:09 redness methocarbamol [From Robaxin] Allergy Rash/Hives Verified 07/08/19 16:09 Sulfa (Sulfonamide Allergy Anaphylaxis Verified 07/08/19 16:09 Antibiotics) Review of Systems ROS Statement: Those systems with pertinent positive or pertinent negative responses have been documented in the HPI. ROS Other: All systems not noted in ROS Statement are negative. Past Medical History Past Medical History: Cancer, Fibromyalgia, Seizure Disorder Additional Past Medical History / Comment(s): hernia, DDD,cervical CA, SEIZURES for approx 6 mos due to a closed head injury (2009), Hx of gestational diabetes., frequent constipation., hernia., States poor vision right eye. History of Any Multi-Drug Resistant Organisms: None Reported Past Surgical History: Adenoidectomy, Section, Hernia Repair, Orthopedic Surgery, Tonsillectomy, Tubal Ligation Additional Past Surgical History / Comment(s): cyst removed rt labia, x2, cervical surgery "freezing & scrapping" for cancer. Past Anesthesia/Blood Transfusion Reactions: No Reported Reaction, Motion Sic kness Additional Past Anesthesia/Blood Transfusion Reaction / Comment(s): states "grandmother has hx fungal meningitis r/t ear infection/ran high fever with ear surgery-pt not sure if fever r/t meningitis or anesthesia. Past Psychological History: Anxiety, Bipolar, Depression Smoking Status: Current every day smoker Past Alcohol Use History: None Reported Past Drug Use History: Marijuana - Past Family History Mother Family Medical History: Cancer Additional Family Medical History / Comment(s): cervical General Exam - General Exam Comments Initial Comments: 33-year-old female. Alert and oriented. No distress. Limitations: no limitations General appearance: alert, in no apparent distress Head exam: Present: atraumatic, normocephalic, normal inspection, other (Patient has a 2 cm laceration over the posterior scalp. Bleeding is well-controlled at this time.) Eye exam: Present: normal appearance, PERRL, EOMI. Absent: scleral icterus, conjunctival injection, periorbital swelling ENT exam: Present: normal exam, mucous membranes moist Neck exam: Present: normal inspection. Absent: tenderness, meningismus, lymphadenopathy Respiratory exam: Present: normal lung sounds bilaterally. Absent: respiratory distress, wheezes, rales, rhonchi, stridor Cardiovascular Exam: Present: regular rate, normal rhythm, normal heart sounds. Absent: systolic murmur, diastolic murmur, rubs, gallop, clicks GI/Abdominal exam: Present: soft, normal bowel sounds. Absent: distended, guarding, rebound, rigid Extremities exam: Present: normal inspection, full ROM, normal capillary refill. Absent: tenderness, pedal edema, joint swelling, calf tenderness Back exam: Present: normal inspection Neurological exam: Present: alert, oriented X3, CN II-XII intact Psychiatric exam: Present: normal affect, normal mood Skin exam: Present: warm, dry, intact, normal color. Absent: rash Course Vital Signs 07/08/19 16:06 Temperature 97.8 F Pulse Rate 97 Respiratory 20 Rate Blood Pressure 97/66 O2 Sat by Pulse 98 Oximetry EKG Findings - EKG Comments: EKG Findings:: EKG shows normal sinus rhythm with normal EKG noted. Ventricular rate of 79 bpm. OK interval is 172 ms. QRS duration is 86 ms. QT QTc is 400/450 ms. Procedures - Laceration Laceration #1 Indication: laceration (2) Site: scalp Size (cm): 2 Description: linear Depth: simple, single layer Anesthetic Used: lidocaine 1% Anesthesia Technique: local infiltration Amount (mls): 3 Pre-repair: wound explored Type of Sutures: other (Juwan) Number of Sutures: 4 (juwan) Patient Tolerated Procedure: well, no complications Medical Decision Making - Medical Decision Making Patient is a 33-year-old female, presents emergency department today after syncopal episode. Has not been eating or drinking much for the past few days. Patient reportedly has had syncopal episode today. Patient has no recent fevers or chills. Patient has had a posterior scalp laceration from hitting her head. This was closed with juwan. Patient CT of the brain and C-spine are negative for any acute process. Patient is given a liter bolus and lab work obtained. Her tetanus shot is up-to-date. Patient's scalp laceration was closed with 4 juwan. Discussed monitoring for infection. Patient's CTA of the brain is negative for any acute cranial process. Patient's labs are unremarkable Patient is given liter bolus. Likely syncope or related to dehydration and poor diet. Patient is informed of these results. Discussed that with the headache and nausea and she doesn't after head injury she does have a concussion. Patient will be discharged at this time with head injury instructions and suture care instructions. All questions were answered return parameters were discussed. - Lab Data Result diagrams: 07/08/19 16:43 07/08/19 16:43 Lab Results 07/08/19 07/08/19 07/08/19 Range/Units 16:43 16:43 16:43 WBC 7.9 (3.8-10.6) k/uL RBC 4.27 (3.80-5.40) m/uL Hgb 12.6 (11.4-16.0) gm/dL Hct 37.5 (34.0-46.0) % MCV 87.8 (80.0-100.0) fL MCH 29.5 (25.0-35.0) pg MCHC 33.6 (31.0-37.0) g/dL RDW 13.8 (11.5-15.5) % Plt Count 269 (150-450) k/uL Neutrophils % 54 % Lymphocytes % 39 % Monocytes % 3 % Eosinophils % 2 % Basophils % 1 % Neutrophils # 4.2 (1.3-7.7) k/uL Lymphocytes # 3.1 (1.0-4.8) k/uL Monocytes # 0.3 (0-1.0) k/uL Eosinophils # 0.1 (0-0.7) k/uL Basophils # 0.1 (0-0.2) k/uL PT 10.7 (9.0-12.0) sec INR 1.0 (<1.2) APTT 21.4 L (22.0-30.0) sec Sodium 140 (137-145) mmol/L Potassium 4.2 (3.5-5.1) mmol/L Chloride 106 (98-107) mmol/L Carbon Dioxide 23 (22-30) mmol/L Anion Gap 11 mmol/L BUN 12 (7-17) mg/dL Creatinine 0.63 (0.52-1.04) mg/dL Est GFR (CKD-EPI)AfAm >90 (>60 ml/min/1.73 sqM) Est GFR (CKD-EPI)NonAf >90 (>60 ml/min/1.73 sqM) Glucose 109 H (74-99) mg/dL Calcium 9.5 (8.4-10.2) mg/dL Magnesium 2.0 (1.6-2.3) mg/dL Total Bilirubin 0.2 (0.2-1.3) mg/dL AST 17 (14-36) U/L ALT 20 (9-52) U/L Alkaline Phosphatase 38 (38-126) U/L Troponin I (0.000-0.034) ng/mL Total Protein 7.0 (6.3-8.2) g/dL Albumin 4.6 (3.5-5.0) g/dL 07/08/19 Range/Units 16:43 WBC (3.8-10.6) k/uL RBC (3.80-5.40) m/uL Hgb (11.4-16.0) gm/dL Hct (34.0-46.0) % MCV (80.0-100.0) fL MCH (25.0-35.0) pg MCHC (31.0-37.0) g/dL RDW (11.5-15.5) % Plt Count (150-450) k/uL Neutrophils % % Lymphocytes % % Monocytes % % Eosinophils % % Basophils % % Neutrophils # (1.3-7.7) k/uL Lymphocytes # (1.0-4.8) k/uL Monocytes # (0-1.0) k/uL Eosinophils # (0-0.7) k/uL Basophils # (0-0.2) k/uL PT (9.0-12.0) sec INR (<1.2) APTT (22.0-30.0) sec Sodium (137-145) mmol/L Potassium (3.5-5.1) mmol/L Chloride (98-107) mmol/L Carbon Dioxide (22-30) mmol/L Anion Gap mmol/L BUN (7-17) mg/dL Creatinine (0.52-1.04) mg/dL Est GFR (CKD-EPI)AfAm (>60 ml/min/1.73 sqM) Est GFR (CKD-EPI)NonAf (>60 ml/min/1.73 sqM) Glucose (74-99) mg/dL Calcium (8.4-10.2) mg/dL Magnesium (1.6-2.3) mg/dL Total Bilirubin (0.2-1.3) mg/dL AST (14-36) U/L ALT (9-52) U/L Alkaline Phosphatase (38-126) U/L Troponin I <0.012 (0.000-0.034) ng/mL Total Protein (6.3-8.2) g/dL Albumin (3.5-5.0) g/dL - Radiology Data Radiology results: report reviewed Negative computed tomography scan of the brain. Minimal ethmoid sinusitis. Negative computed tomography scan of cervical spine. No fracture. No changes noted. Disposition Clinical Impression: Syncope, Concussion, Scalp laceration Disposition: HOME SELF-CARE Condition: Good Instructions (If sedation given, give patient instructions): Syncope (ED), Concussion (ED) Additional Instructions: Please return to the emergency room in 8-10 days to have juwan removed. Please leave wound covered for the first 24-48 hours and then leave open to air after that time. Please use clean soap and water to clean the suture area to prevent scabbing over the top of your juwan. Please watch for any signs of infection which may include but not limited to increased pain, swelling, redness, fever or chills. Please return to the emergency room if any signs of infection do occur. Please return to the emergency room for any other concerns or complications. Patient should take Tylenol Motrin for pain. Is patient prescribed a controlled substance at d/c from ED?: No Referrals: None,Stated [Primary Care Provider] - 1-2 days Samia Maria MD [STAFF PHYSICIAN] - 1-2 days Time of Disposition: 17:34
[2019-07-08 16:51] LABS: Basophils # (A) 0.1 k/uL (0-0.2); Basophils % (A) 1 %; Eosinophils # (A) 0.1 k/uL (0-0.7); Eosinophils % (A) 2 %; HCT 37.5 % (34.0-46.0); HGB 12.6 gm/dL (11.4-16.0); Lymphocytes # (A) 3.1 k/uL (1.0-4.8); Lymphocytes % (A) 39 %; MCH 29.5 pg (25.0-35.0); MCHC 33.6 g/dL (31.0-37.0); MCV 87.8 fL (80.0-100.0); Mean Platelet Volume 8.1; Monocytes # (A) 0.3 k/uL (0-1.0); Monocytes % (A) 3 %; Neutrophils # (A) 4.2 k/uL (1.3-7.7); Neutrophils % (A) 54 %; Platelet Count 269 k/uL (150-450); RBC 4.27 m/uL (3.80-5.40); RDW 13.8 % (11.5-15.5); WBC 7.9 k/uL (3.8-10.6)
[2019-07-08 17:00] LABS: ALT 20 U/L (9-52); AST 17 U/L (14-36); African American GFR (CKD) >90 (>60 ml/min/1.73 sqM); Albumin 4.6 g/dL (3.5-5.0); Alkaline Phosphatase 38 U/L (38-126); Anion Gap 11 mmol/L; Blood Urea Nitrogen 12 mg/dL (7-17); Calcium 9.5 mg/dL (8.4-10.2); Carbon Dioxide 23 mmol/L (22-30); Chloride 106 mmol/L (98-107); Glucose 109 mg/dL (74-99); Potassium 4.2 mmol/L (3.5-5.1); Sodium 140 mmol/L (137-145); Total Bilirubin 0.2 mg/dL (0.2-1.3)
--- NOTE | 2019-07-08 17:06 | XR ---
EXAMINATION TYPE: XR chest 2V DATE OF EXAM: 07/08/2019 COMPARISON: 07/13/2017 HISTORY: Syncope TECHNIQUE: Frontal and lateral views of the chest are obtained. FINDINGS: Heart and mediastinum are normal. Lungs are clear. Diaphragm is normal. Bony thorax appear s normal. IMPRESSION: Normal chest. There is clearing of mild left side pneumonia compared to old exam.
[2019-07-08 17:07] LABS: Prothrombin Time 10.7 sec (9.0-12.0)
--- NOTE | 2019-07-08 17:09 | CT ---
EXAMINATION TYPE: CT brain gabby bowens con DATE OF EXAM: 07/08/2019 COMPARISON: 01/22/2016 HISTORY: syncope with posterior head injury Head injury. Headache. Neck pain. CT DLP: 1289.7 mGycm Automated exposure control for dose reduction was used. TECHNIQUE: CT scan of the head and cervical spine are performed without contrast. FINDINGS: Ventricles and sulci appear normal. There is no mass effect nor midline shift shift. Ther e is no sign of intracranial hemorrhage. The calvarium appears intact. There is minimal mucosal thickening in the ethmoid air cells. Cervical vertebra have fairly normal spacing and alignment. Posterior elements are intact. Facet join ts appear intact. There is no evidence of cervical spine fracture. IMPRESSION: Negative CT scan of the brain. Minimal ethmoid sinusitis. Negative CT scan cervical spine. No fracture. No change.
[2019-07-08 17:15] LABS: Partial Thromboplastin Time 21.4 sec (22.0-30.0)
[2019-07-08] MEDS ORDERED: KETOROLAC 30 MG/ML 1 ML VIAL IVP STA (17:30)
[2019-07-08] MEDS ORDERED: ACETAMINOPHEN TAB 500 MG TAB PO STA (17:30)
[2019-07-08 17:39] VITALS: BP 113/83; PULSE 69; RESP 18
== END 2019-07-08 17:47 | disposition home or self-care (01) ==
LOC: EC 16:04
DX: S01.01XA Laceration without foreign body of scalp, initial encounter (principal); S06.0X9A Concussion with loss of consciousness of unspecified duration, initial encounter; F17.200 Nicotine dependence, unspecified, uncomplicated; Z88.2 Allergy status to sulfonamides; Z88.8 Allergy status to other drugs, medicaments and biological substances; Z91.040 Latex allergy status; Z85.41 Personal history of malignant neoplasm of cervix uteri; Z98.890 Other specified postprocedural states; W01.0XXA Fall on same level from slipping, tripping and stumbling without subsequent striking against object, initial encounter; Y93.89 Activity, other specified
CPT/HCPCS: 36415; 93005; 80053; 83735; 84484; 85025; 85610; 85730; 71046; 72125; 70450; 99285; 12001; 96374; 96361; J1885

== ENCOUNTER 2020-04-28 16:52 | Emergency (ER) | payer OTHER ==
[2020-04-28 16:58] VITALS: TEMP 98.2
[2020-04-28] MEDS ORDERED: KETOROLAC 60 MG/2 ML VIAL IM STA (17:17)
--- NOTE | 2020-04-28 17:41 | XR ---
EXAMINATION TYPE: XR Hip RT and AP Pelvis DATE OF EXAM: 04/28/2020 COMPARISON: NONE HISTORY: Hip pain TECHNIQUE: 3 views FINDINGS: The pelvic ring is intact. Proximal femurs and hip joints are intact. Sacroiliac joints yuan ear normal. IMPRESSION: Normal pelvis and right hip exam.
--- NOTE | 2020-04-28 18:49 | ED ---
General Adult HPI - General Chief complaint: Extremity Problem,Nontraumatic Stated complaint: rt hip pain Time Seen by Provider: 04/28/20 16:55 Source: patient, RN notes reviewed, old records reviewed Mode of arrival: ambulatory Limitations: no limitations - History of Present Illness Initial comments: This is a 34-year-old female who comes in with chronic right hip pain. Patient states the pain is been getting worse lately and she has been getting injections in the hip from her primary medical care doctor. Patient has not yet been to an orthopedic surgeon. Patient denies any injury to the hip. Patient states she's already on Neurontin [place] and an anti-inflammatory. - Related Data Previous Rx's Medication Instructions Recorded Ketorolac [Toradol] 10 mg PO Q8HR #15 tab 01/12/19 Ondansetron Odt [Zofran Odt] 4 mg PO Q8HR PRN #10 tab 01/12/19 Allergies Allergy/AdvReac Type Severity Reaction Status Date / Time latex Allergy Swelling,itching,skin Verified 04/28/20 16:58 redness methocarbamol [From Robaxin] Allergy Rash/Hives Verified 04/28/20 16:58 Sulfa (Sulfonamide Allergy Anaphylaxis Verified 04/28/20 16:58 Antibiotics) Review of Systems ROS Statement: Those systems with pertinent positive or pertinent negative responses have been documented in the HPI. ROS Other: All systems not noted in ROS Statement are negative. Past Medical History Past Medical History: Cancer, Fibromyalgia, Seizure Disorder Additional Past Medical History / Comment(s): hernia, DDD,cervical CA, SEIZURES for approx 6 mos due to a closed head injury (2009), Hx of gestational diabetes., frequent constipation., hernia., States poor vision right eye. History of Any Multi-Drug Resistant Organisms: None Reported Past Surgical History: Adenoidectomy, Section, Hernia Repair, Orthopedic Surgery, Tonsillectomy, Tubal Ligation Additional Past Surgical History / Comment(s): cyst removed rt labia, x2, cervical surgery "freezing & scrapping" for cancer. Past Anesthesia/Blood Transfusion Reactions: No Reported Reaction, Motion Sickness Additional Past Anesthesia/Blood Transfusion Reaction / Comment(s): states "grandmother has hx fungal meningitis r/t ear infection/ran high fever with ear surgery-pt not sure if fever r/t meningitis or anesthesia. Past Psychological History: Anxiety, Bipolar, Depression Smoking Status: Current every day smoker Past Alcohol Use History: None Reported Past Drug Use History: Marijuana - Past Family History Mother Family Medical History: Cancer Additional Family Medical History / Comment(s): cervical General Exam - General Exam Comments Initial Comments: GENERAL: Patient is well-developed and well-nourished. Patient is nontoxic and well- hydrated and is in mild distress. ENT: Neck is soft and supple. No significant lymphadenopathy is noted. Oropharynx is clear. Moist mucous membranes. Neck has full range of motion without eliciting any pain. EYES: The sclera were anicteric and conjunctiva were pink and moist. Extraocular movements were intact and pupils were equal round and reactive to light. Eyelids were unremarkable. PULMONARY: Unlabored respirations. Good breath sounds bilaterally. No audible rales rhonchi or wheezing was noted. CARDIOVASCULAR: There is a regular rate and rhythm without any murmurs gallops or rubs. ABDOMEN: Soft and nontender with normal bowel sounds. SKIN: Skin is clear with no lesions or rashes and otherwise unremarkable. NEUROLOGIC: Patient is alert and oriented x3. Cranial nerves II through XII are grossly intact. Motor and sensory are also intact. Normal speech, volume and content. Symmetrical smile. MUSCULOSKELETAL: Normal extremities with adequate strength and full range of motion. No lower extremity swelling or edema. No calf tenderness. Patient has some tenderness over the right greater trochanteric bursa PSYCHIATRIC: Normal psychiatric evaluation. Limitations: no limitations Course Vital Signs 04/28/20 16:56 Temperature 98.2 F Pulse Rate 91 Respiratory 20 Rate Blood Pressure 130/74 O2 Sat by Pulse 99 Oximetry Disposition Clinical Impression: Greater trochanteric bursitis Disposition: HOME SELF-CARE Condition: Good Instructions (If sedation given, give patient instructions): Hip Bursitis (ED) Is patient prescribed a controlled substance at d/c from ED?: No Referrals: Jose Marques DO [Doctor of Osteopathic Medicine] - 1-2 days Time of Disposition: 18:48
[2020-04-28] MEDS ORDERED: MORPHINE SULFATE 4 MG/ML SYRINGE IM STA (18:50)
[2020-04-28 19:06] VITALS: BP 115/72; PULSE 72; RESP 18
== END 2020-04-28 19:08 | disposition home or self-care (01) ==
LOC: EC 16:52
DX: M70.61 Trochanteric bursitis, right hip (principal); G89.29 Other chronic pain; F17.200 Nicotine dependence, unspecified, uncomplicated; Z88.2 Allergy status to sulfonamides; Z91.040 Latex allergy status; Z88.8 Allergy status to other drugs, medicaments and biological substances; Z85.41 Personal history of malignant neoplasm of cervix uteri
CPT/HCPCS: 73502; 99284; 96372 ×2; J2270; J1885

== ENCOUNTER 2020-05-26 13:43 | Inpatient (IN) | payer OTHER ==
[2020-05-26] MEDS ORDERED: KETOROLAC 30 MG/ML 1 ML VIAL IVP STA (14:10)
[2020-05-26] MEDS ORDERED: SODIUM CHLORIDE 0.9% 500 ML 500 ML IV STA (14:10)
--- NOTE | 2020-05-26 14:21 | ED ---
General Adult HPI - General Chief complaint: Chest Pain Stated complaint: chest/abd injury Time Seen by Provider: 05/26/20 14:02 Source: patient Mode of arrival: ambulatory Limitations: no limitations - History of Present Illness Initial comments: Patient is a 34-year-old female presenting to the emergency Department with complaints of lower chest discomfort as well as upper abdominal pain. Patient states approximately 4 hours prior to arrival, she was helping a friend move a dryer when the leg broke and fell back onto her, pinning her against a wall. The top of the dryer was at breast level. She states right after this incident she was feeling some minor discomfort but as the next few hours past her pain has been increasing. She states majority of her discomfort is in her upper abdomen. She states it does hurt to take in a deep breath. She did take an Aleve at home which has done nothing for her pain. She denies any dizziness, blurry vision, nausea, vomiting. She states she did not hit her head, no pain in the lower extremities. She has no further complaints at this time. Upon arrival to the ER, her vital signs are stable. - Related Data Home Medications Medication Instructions Recorded Confirmed Gabapentin [Neurontin] 300 mg PO TID 05/26/20 05/26/20 HYDROcodone/APAP 7.5-325MG [[place] 1 tab PO BID PRN 05/26/20 05/26/20 7.5-325] Multivitamin [Multivitamins Adult 1 tab PO DAILY 05/26/20 05/26/20 Gummies] Naproxen Sodium [Aleve] 660 mg PO DAILY PRN 05/26/20 05/26/20 Allergies Allergy/AdvReac Type Severity Reaction Status Date / Time latex Allergy Swelling,itching,skin Verified 05/26/20 15:01 redness methocarbamol [From Robaxin] Allergy Rash/Hives Verified 05/26/20 15:01 Sulfa (Sulfonamide Allergy Anaphylaxis Verified 05/26/20 15:01 Antibiotics) Review of Systems ROS Statement: Those systems with pertinent positive or pertinent negative responses have been documented in the HPI. ROS Other: All systems not noted in ROS Statement are negative. Past Medical History Past Medical History: Cancer, Fibromyalgia, Seizure Disorder Additional Past Medical History / Comment(s): hernia, DDD,cervical CA, SEIZURES for approx 6 mos due to a closed head injury (2010), Hx of gestational di abetes., frequent constipation., hernia., States poor vision right eye. History of Any Multi-Drug Resistant Organisms: None Reported Past Surgical History: Adenoidectomy, Section, Hernia Repair, Orthopedic Surgery, Tonsillectomy, Tubal Ligation Additional Past Surgical History / Comment(s): cyst removed rt labia, x2, cervical surgery "freezing & scrapping" for cancer. Past Anesthesia/Blood Transfusion Reactions: No Reported Reaction, Motion Sickness Additional Past Anesthesia/Blood Transfusion Reaction / Comment(s): states "grandmother has hx fungal meningitis r/t ear infection/ran high fever with ear surgery-pt not sure if fever r/t meningitis or anesthesia. Past Psychological History: Anxiety, Bipolar, Depression Smoking Status: Current every day smoker Past Alcohol Use History: None Reported Past Drug Use History: Marijuana - Past Family History Mother Family Medical History: Cancer Additional Family Medical History / Comment(s): cervical General Exam - General Exam Comments Initial Comments: GENERAL: Patient is well-developed and well-nourished. Patient is nontoxic, seems anxious, in moderate amount of pain. HEAD: Atraumatic, normocephalic. EYES: Pupils equal round and reactive to light, extraocular movements intact, sclera anicteric, conjunctiva are normal. Eyelids were unremarkable. ENT: TMs normal, nares patent, oropharynx clear without exudates. Moist mucous membranes. NECK: Normal range of motion, supple without lymphadenopathy or JVD. LUNGS: Unlabored respirations. Breath sounds clear to auscultation bilaterally and equal. No wheezes rales or rhonchi. Lower chest is tender to palpation. HEART: Regular rate and rhythm without murmurs, rubs or gallops. ABDOMEN: Tender to palpation entire upper abdomen. Soft, normoactive bowel sounds. No m asses appreciated. No overlying ecchymosis. : Deferred MUSCULOSKELETAL: Normal extremities with adequate strength and normal range of motion, no pitting or edema. No clubbing or cyanosis. NEUROLOGICAL: Patient is alert and oriented x 3. Motor and sensory are also intact. Cranial nerves II through XII grossly intact. Symmetrical smile. Normal speech, normal gait. PSYCH: Normal mood, normal affect. SKIN: Warm, Dry, normal turgor, no rashes or lesions noted. Limitations: no limitations Course Vital Signs 05/26/20 05/26/20 13:44 14:08 Temperature 98.2 F Pulse Rate 87 Respiratory 28 H 18 Rate Blood Pressure 118/68 O2 Sat by Pulse 99 Oximetry EKG Findings - EKG Comments: EKG Findings:: Normal sinus rhythm, signs of acute ischemia, ventricular rate 73, MS interval 150, QT 400. Similar to previous EKG on 07/08/2019. Medical Decision Making - Medical Decision Making Patient is a 34-year-old female here for upper abdominal and lower chest pain after a washer pinned her against a wall proximal 4 hours ago. Her vital signs are stable upon arrival. She has pain with palpation of the entire upper abdomen, lower chest wall. X-rays of the chest as well as ribs show no acute fractures. CT of the abdomen shows a laceration to the liver involving the posterior lobe with surrounding hematoma. There is also fluid in the pelvis consistent with additional hematoma. This is a grade 3 laceration with a depth of more than 4 cm. Her hemoglobin is stable at 10.5, her liver enzymes are elevated AST is 274, ALT 163. Patient was given 500ml fluid, pain control. She is resting comfortably in the ER. Her vital signs remained stable. Patient will be admitted to the ICU, accepted by Dr. Rocha, also spoke with Dr. Bean. - Lab Data Result diagrams: 05/26/20 14:17 05/26/20 14:17 Lab Results 05/26/20 05/26/20 05/26/20 Range/Units 14:17 14:17 14:17 WBC 11.3 H (3.8-10.6) k/uL RBC 3.59 L (3.80-5.40) m/uL Hgb 10.5 L (11.4-16.0) gm/dL Hct 32.3 L (34.0-46.0) % MCV 90.0 (80.0-100.0) fL MCH 29.1 (25.0-35.0) pg MCHC 32.4 (31.0-37.0) g/dL RDW 13.9 (11.5-15.5) % Plt Count 241 (150-450) k/uL Neutrophils % 74 % Lymphocytes % 21 % Monocytes % 3 % Eosinophils % 1 % Basophils % 0 % Neutrophils # 8.4 H (1.3-7.7) k/uL Lymphocytes # 2.3 (1.0-4.8) k/uL Monocytes # 0.4 (0-1.0) k/uL Eosinophils # 0.1 (0-0.7) k/uL Basophils # 0.0 (0-0.2) k/uL PT 9.8 (9.0-12.0) sec INR 0.9 (<1.2) APTT 21.4 L (22.0-30.0) sec Sodium 136 L (137-145) mmol/L Potassium 3.7 (3.5-5.1) mmol/L Chloride 107 (98-107) mmol/L Carbon Dioxide 25 (22-30) mmol/L Anion Gap 4 mmol/L BUN 14 (7-17) mg/dL Creatinine 0.62 (0.52-1.04) mg/dL Est GFR (CKD-EPI)AfAm >90 (>60 ml/min/1.73 sqM) Est GFR (CKD-EPI)NonAf >90 (>60 ml/min/1.73 sqM) Glucose 85 (74-99) mg/dL Plasma Lactic Acid Shaheed (0.7-2.0) mmol/L Calcium 8.6 (8.4-10.2) mg/dL Total Bilirubin 0.3 (0.2-1.3) mg/dL AST 274 H (14-36) U/L ALT 163 H (4-34) U/L Alkaline Phosphatase 85 (38-126) U/L Total Protein 6.0 L (6.3-8.2) g/dL Albumin 3.9 (3.5-5.0) g/dL Lipase 47 (23-300) U/L 05/26/20 Range/Units 14:21 WBC (3.8-10.6) k/uL RBC (3.80-5.40) m/uL Hgb (11.4-16.0) gm/dL Hct (34.0-46.0) % MCV (80.0-100.0) fL MCH (25.0-35.0) pg MCHC (31.0-37.0) g/dL RDW (11.5-15.5) % Plt Count (150-450) k/uL Neutrophils % % Lymphocytes % % Monocytes % % Eosinophils % % Basophils % % Neutrophils # (1.3-7.7) k/uL Lymphocytes # (1.0-4.8) k/uL Monocytes # (0-1.0) k/uL Eosinophils # (0-0.7) k/uL Basophils # (0-0.2) k/uL PT (9.0-12.0) sec INR (<1.2) APTT (22.0-30.0) sec Sodium (137-145) mmol/L Potassium (3.5-5.1) mmol/L Chloride (98-107) mmol/L Carbon Dioxide (22-30) mmol/L Anion Gap mmol/L BUN (7-17) mg/dL Creatinine (0.52-1.04) mg/dL Est GFR (CKD-EPI)AfAm (>60 ml/min/1.73 sqM) Est GFR (CKD-EPI)NonAf (>60 ml/min/1.73 sqM) Glucose (74-99) mg/dL Plasma Lactic Acid Shaheed 0.6 L (0.7-2.0) mmol/L Calcium (8.4-10.2) mg/dL Total Bilirubin (0.2-1.3) mg/dL AST (14-36) U/L ALT (4-34) U/L Alkaline Phosphatase (38-126) U/L Total Protein (6.3-8.2) g/dL Albumin (3.5-5.0) g/dL Lipase (23-300) U/L Critical Care Time Critical Care Time: Yes Total Critical Care Time: 35 (Patient had blood forced trauma to her abdomen, CT showed a grade 3 liver laceration, time spent with patient management. Patient admitted to ICU.) Disposition Clinical Impression: Grade III laceration of liver, Blunt trauma to abdomen, Chest wall contusion Disposition: ADMITTED IP TO THIS HOSP Condition: Stable Referrals: Joao Stockton MD [Primary Care Provider] - 1-2 days Decision Date: 05/26/20 Decision Time: 15:31
[2020-05-26 14:29] LABS: Basophils % (A) 0 %; Eosinophils # (A) 0.1 k/uL (0-0.7); Eosinophils % (A) 1 %; HCT 32.3 % (34.0-46.0); HGB 10.5 gm/dL (11.4-16.0); Lymphocytes # (A) 2.3 k/uL (1.0-4.8); Lymphocytes % (A) 21 %; MCH 29.1 pg (25.0-35.0); MCHC 32.4 g/dL (31.0-37.0); Mean Platelet Volume 8.4; Monocytes # (A) 0.4 k/uL (0-1.0); Monocytes % (A) 3 %; Neutrophils # (A) 8.4 k/uL (1.3-7.7); Neutrophils % (A) 74 %; Platelet Count 241 k/uL (150-450); RBC 3.59 m/uL (3.80-5.40); RDW 13.9 % (11.5-15.5); WBC 11.3 k/uL (3.8-10.6)
[2020-05-26 14:39] LABS: ALT 163 U/L (4-34); AST 274 U/L (14-36); African American GFR (CKD) >90 (>60 ml/min/1.73 sqM); Albumin 3.9 g/dL (3.5-5.0); Alkaline Phosphatase 85 U/L (38-126); Anion Gap 4 mmol/L; Blood Urea Nitrogen 14 mg/dL (7-17); Calcium 8.6 mg/dL (8.4-10.2); Carbon Dioxide 25 mmol/L (22-30); Chloride 107 mmol/L (98-107); Glucose 85 mg/dL (74-99); Non-African American GFR(CKD) >90 (>60 ml/min/1.73 sqM); Potassium 3.7 mmol/L (3.5-5.1); Sodium 136 mmol/L (137-145); Total Bilirubin 0.3 mg/dL (0.2-1.3)
--- NOTE | 2020-05-26 14:48 | XR ---
EXAMINATION TYPE: XR chest 2V DATE OF EXAM: 05/26/2020 COMPARISON: 07/08/2019 HISTORY: Syncope TECHNIQUE: 2 views FINDINGS: Heart and mediastinum are normal. Lungs are clear. Diaphragm is normal. Bony thorax appears normal. IMPRESSION: Normal chest. No change.
[2020-05-26 14:49] LABS: INR 0.9 (<1.2); Prothrombin Time 9.8 sec (9.0-12.0)
[2020-05-26] MEDS ORDERED: MORPHINE SULFATE 4 MG/ML SYRINGE IVP STA (14:50)
--- NOTE | 2020-05-26 14:50 | XR ---
EXAMINATION TYPE: XR ribs bilateral DATE OF EXAM: 05/26/2020 COMPARISON: Chest x-ray 07/08/2019 HISTORY: Bilateral rib pain TECHNIQUE: 8 views FINDINGS: The lungs are clear. There is no pleural effusion or pneumothorax. Shoulder joints appear i ntact. I see no rib fracture. The lateral right ninth rib is slightly irregular consistent with an ol d fracture. IMPRESSION: No acute abnormality of the ribs.
[2020-05-26 14:54] LABS: Partial Thromboplastin Time 21.4 sec (22.0-30.0)
[2020-05-26] MEDS ORDERED: ONDANSETRON 4 MG/2 ML VIAL IVP STA (14:54)
--- NOTE | 2020-05-26 15:08 | CT ---
EXAMINATION TYPE: CT abdomen pelvis w con DATE OF EXAM: 05/26/2020 COMPARISON: 01/12/2019 HISTORY: Generalized pain post trauma CT DLP: 639 mGycm Automated exposure control for dose reduction was used. CONTRAST: Performed with IV Contrast, patient injected with 100 mL of Isovue 300. Multiple axial sections were obtained from the diaphragm to the floor the pelvis with IV contrast. There is minimal atelectasis at the posterior lung bases. There is fluid around the liver. There is l inear defects in the lateral right lobe of the liver related to multiple lacerations. These measure u p to 4 cm in length. Hematoma around the liver measures up to 3.5 cm in thickness. Left lobe is intac t. The anterior right lobe of the liver is intact. There is no adrenal mass. Kidneys show satisfactor y contrast opacification. There is no hydronephrosis. Bladder distends smoothly. There is moderate fr ee fluid in the pelvis. Density of the fluid is 35 and consistent with hemorrhage. There is 3 cm cyst on the left ovary. There is no inguinal hernia. There is no mesenteric edema. There is no ascites or free air. There is no bowel obstruction. Delayed images show normal renal excretion. Lumbar vertebra have normal spacing and alignment. Posterior elements are intact. There is no li jordan fracture. The bony pelvis appears intact. Spleen stomach pancreas gallbladder appear normal. Bile ducts are not dilated. IMPRESSION: Laceration of the liver involving the posterior right lobe with surrounding hematoma. Fluid in the pe lvis consistent with additional hematoma. This is grade 3 laceration of the liver. Laceration depth i s more than 4 cm. Abnormalities are all new compared to old CT scan. This was discussed with the attending Samia Varghese at 3:15 PM.
[2020-05-26] MEDS ORDERED: NALOXONE 0.4 MG/ML 1 ML VIAL IV PRN (15:26)
[2020-05-26] MEDS ORDERED: fentaNYL (PF) 50 MCG/ML 2 ML AMP IVP PRN (15:29)
[2020-05-26 16:37] LABS: Glucose,Whole Blood 99 mg/dL (75-99)
--- NOTE | 2020-05-26 16:48 | P.GSHP ---
History of Present Illness H&P Date: 05/26/20 34-year-old female admitted as a trauma due to grade 3 liver laceration. The patient states that approximately 6 hours ago she was helping her friend move a washer and dryer. The washer fell off of its stand and pinned her against a wall. She states that she initially had some right-sided abdominal pain but denied any pain elsewhere. She states that she tried to walk it off, however the pain was worsening so she presented to the ER approximately 4 hours after the injury. She complained of some abdominal bloating that has since passed. She states she is hungry. She denies any nausea or vomiting. On presentation, her vital signs were noted to be hemodynamically stable. CT of the abdomen and pelvis was performed that did show a grade 3 liver laceration with surrounding hematoma. The laceration was measured at approximately [address] today. She states that she was ambulating after the accident without any difficulty. She has no additional complaints at this time. - Review of Systems All systems: negative Past Medical History Past Medical History: Cancer, Fibromyalgia, Seizure Disorder Additional Past Medical History / Comment(s): hernia, DDD,cervical CA, SEIZURES for approx 6 mos due to a closed head injury (2009), Hx of gestational diabetes., frequent constipation., hernia., States poor vision right eye. History of Any Multi-Drug Resistant Organisms: None Reported Past Surgical History: Adenoidectomy, Section, Hernia Repair, Orthopedic Surgery, Tonsillectomy, Tubal Ligation Additional Past Surgical History / Comment(s): cyst removed rt labia, x2, cervical surgery "freezing & scrapping" for cancer. Past Anesthesia/Blood Transfusion Reactions: No Reported Reaction, Motion Sickness Additional Past Anesthesia/Blood Transfusion Reaction / Comment(s): states "grandmother has hx fungal meningitis r/t ear infection/ran high fever with ear surgery-pt not sure if fever r/t meningitis or anesthesia. Past Psychological History: Anxiety, Bipolar, Depression Smoking Status: Current every day smoker Past Alcohol Use History: None Reported Past Drug Use History: Marijuana - Past Family History Mother Family Medical History: Cancer Additional Family Medical History / Comment(s): cervical Medications and Allergies Home Medications Medication Instructions Recorded Confirmed Type Gabapentin [Neurontin] 300 mg PO TID 05/26/20 05/26/20 History HYDROcodone/APAP 7.5-325MG [[place] 1 tab PO BID PRN 05/26/20 05/26/20 History 7.5-325] Multivitamin [Multivitamins Adult 1 tab PO DAILY 05/26/20 05/26/20 History Gummies] Naproxen Sodium [Aleve] 660 mg PO DAILY PRN 05/26/20 05/26/20 History Allergies Allergy/AdvReac Type Severity Reaction Status Date / Time latex Allergy Swelling,itching,skin Verified 05/26/20 15:01 redness methocarbamol [From Robaxin] Allergy Rash/Hives Verified 05/26/20 15:01 Sulfa (Sulfonamide Allergy Anaphylaxis Verified 05/26/20 15:01 Antibiotics) Surgical - Exam Osteopathic Statement: *. No significant issues noted on an osteopathic structural exam other than those noted in the History and Physical/Consult. Vital Signs Temp Pulse Resp BP Pulse Ox 98.2 F 87 28 H 118/68 99 05/26/20 13:44 05/26/20 13:44 05/26/20 13:44 05/26/20 13:44 05/26/20 13:44 - General well nourished, no distress - Eyes PERRL - ENT no hearing loss - Neck trachea midline - Respiratory normal respiratory effort - Cardiovascular Rhythm: regular - Abdomen Soft, tender to palpation in the right upper quadrant, no ecchymosis, nondistended, no rebound, no guarding - Neurologic normal coordination, normal sensation - Psychiatric oriented to time, oriented to person, oriented to place Results - Labs 05/26/20 14:17 05/26/20 14:17 Abnormal Lab Results - Last 24 Hours (Table) 05/26/20 05/26/20 05/26/20 Range/Units 14:17 14:17 14:17 WBC 11.3 H (3.8-10.6) k/uL RBC 3.59 L (3.80-5.40) m/uL Hgb 10.5 L (11.4-16.0) gm/dL Hct 32.3 L (34.0-46.0) % Neutrophils # 8.4 H (1.3-7.7) k/uL APTT 21.4 L (22.0-30.0) sec Sodium 136 L (137-145) mmol/L Plasma Lactic Acid Shaheed (0.7-2.0) mmol/L AST 274 H (14-36) U/L ALT 163 H (4-34) U/L Total Protein 6.0 L (6.3-8.2) g/dL 05/26/20 Range/Units 14:21 WBC (3.8-10.6) k/uL RBC (3.80-5.40) m/uL Hgb (11.4-16.0) gm/dL Hct (34.0-46.0) % Neutrophils # (1.3-7.7) k/uL APTT (22.0-30.0) sec Sodium (137-145) mmol/L Plasma Lactic Acid Shaheed 0.6 L (0.7-2.0) mmol/L AST (14-36) U/L ALT (4-34) U/L Total Protein (6.3-8.2) g/dL Diabetes panel 05/26/20 Range/Units 14:17 Sodium 136 L (137-145) mmol/L Potassium 3.7 (3.5-5.1) mmol/L Chloride 107 (98-107) mmol/L Carbon Dioxide 25 (22-30) mmol/L BUN 14 (7-17) mg/dL Creatinine 0.62 (0.52-1.04) mg/dL Glucose 85 (74-99) mg/dL Calcium 8.6 (8.4-10.2) mg/dL AST 274 H (14-36) U/L ALT 163 H (4-34) U/L Alkaline Phosphatase 85 (38-126) U/L Total Protein 6.0 L (6.3-8.2) g/dL Albumin 3.9 (3.5-5.0) g/dL Calcium panel 05/26/20 Range/Units 14:17 Calcium 8.6 (8.4-10.2) mg/dL Albumin 3.9 (3.5-5.0) g/dL Pituitary panel 05/26/20 Range/Units 14:17 Sodium 136 L (137-145) mmol/L Potassium 3.7 (3.5-5.1) mmol/L Chloride 107 (98-107) mmol/L Carbon Dioxide 25 (22-30) mmol/L BUN 14 (7-17) mg/dL Creatinine 0.62 (0.52-1.04) mg/dL Glucose 85 (74-99) mg/dL Calcium 8.6 (8.4-10.2) mg/dL Adrenal panel 05/26/20 Range/Units 14:17 Sodium 136 L (137-145) mmol/L Potassium 3.7 (3.5-5.1) mmol/L Chloride 107 (98-107) mmol/L Carbon Dioxide 25 (22-30) mmol/L BUN 14 (7-17) mg/dL Creatinine 0.62 (0.52-1.04) mg/dL Glucose 85 (74-99) mg/dL Calcium 8.6 (8.4-10.2) mg/dL Total Bilirubin 0.3 (0.2-1.3) mg/dL AST 274 H (14-36) U/L ALT 163 H (4-34) U/L Alkaline Phosphatase 85 (38-126) U/L Total Protein 6.0 L (6.3-8.2) g/dL Albumin 3.9 (3.5-5.0) g/dL Assessment and Plan (1) Grade III laceration of liver Narrative/Plan: 34-year-old female with grade 3 laceration of liver after blunt trauma - Currently, the patient is hemodynamically stable. We will admit to the intensive care unit for every hour vital checks and hemodynamic monitoring - Keep the patient nothing by mouth - Every 6 hours hemoglobin and hematocrit - Will continue to follow liver enzymes - Pain control - Bedrest - IV fluids - ICU consult is currently pending - As the patient is hemodynamically stable, we will continue with nonoperative management of the laceration of the liver. Further recommendations will be made based on the patient's clinical progress. Current Visit: Yes Status: Acute Code(s): S36.116A - MAJOR LACERATION OF LIVER, INITIAL ENCOUNTER SNOMED Code(s): 274779411
[2020-05-26] MEDS: LACTATED RINGERS 1,000 ML IV SCH (17:11)
[2020-05-26] MEDS: NICOTINE 14MG/24HR PATCH TRANSDERM SCH (17:14)
[2020-05-26] MEDS: HYDROmorphone 1 MG/ML 1 ML SYRINGE IVP PRN ×2 (17:31→21:13)
[2020-05-26 20:51] LABS: HCT 27.2 % (34.0-46.0); MCHC 32.7 g/dL (31.0-37.0); MCV 91.7 fL (80.0-100.0); Mean Platelet Volume 8.3; Platelet Count 209 k/uL (150-450); RBC 2.97 m/uL (3.80-5.40); RDW 13.8 % (11.5-15.5); WBC 7.5 k/uL (3.8-10.6)
[2020-05-26 21:23] LABS: HGB 8.9 gm/dL (11.4-16.0)
[2020-05-26] MEDS: GABAPENTIN 300 MG CAP PO SCH (22:12)
[2020-05-27] MEDS: LACTATED RINGERS 1,000 ML IV SCH ×3 (00:59→16:24)
[2020-05-27] MEDS: HYDROmorphone 1 MG/ML 1 ML SYRINGE IVP PRN ×7 (01:06→23:00)
[2020-05-27 02:44] LABS: HCT 26.7 % (34.0-46.0); HGB 8.9 gm/dL (11.4-16.0); MCH 30.4 pg (25.0-35.0); MCHC 33.4 g/dL (31.0-37.0); MCV 90.9 fL (80.0-100.0); Mean Platelet Volume 8.3; Platelet Count 205 k/uL (150-450); RBC 2.93 m/uL (3.80-5.40); WBC 6.4 k/uL (3.8-10.6)
[2020-05-27 02:53] LABS: ALT 154 U/L (4-34); AST 180 U/L (14-36); African American GFR (CKD) >90 (>60 ml/min/1.73 sqM); Albumin 3.1 g/dL (3.5-5.0); Alkaline Phosphatase 61 U/L (38-126); Anion Gap 2 mmol/L; Blood Urea Nitrogen 9 mg/dL (7-17); Carbon Dioxide 23 mmol/L (22-30); Chloride 109 mmol/L (98-107); Glucose 90 mg/dL (74-99); Non-African American GFR(CKD) >90 (>60 ml/min/1.73 sqM); Potassium 3.6 mmol/L (3.5-5.1); Sodium 134 mmol/L (137-145); Total Bilirubin 0.4 mg/dL (0.2-1.3); Total Protein 4.9 g/dL (6.3-8.2)
--- NOTE | 2020-05-27 06:58 | P.PN ---
Subjective Progress Note Date: 05/27/20 Patient seen and examined at bedside. Complaining of right upper quadrant pain. Since admission to the ICU, patient has been hemodynamically stable. Serial hemoglobins have been drawn and last 2 hemoglobin levels are at 8.9. Patient denies any dizziness or lightheadedness. Objective - Vital Signs Vital signs: Vital Signs Temp 98.3 F 05/27/20 04:00 Pulse 80 05/27/20 06:30 Resp 17 05/27/20 06:30 BP 129/84 05/27/20 06:30 Pulse Ox 94 L 05/27/20 06:30 Intake & Output 05/26/20 05/26/20 05/27/20 06:59 18:59 06:59 Intake Total 250 1500 Output Total 150 1400 Balance 100 100 Weight 57.606 kg 62.1 kg Intake: IV 1000 Lactated Ringers 1000 Intake, IV Titration 250 500 Amount Lactated Ringers 1,000 ml 250 500 @ 125 mls/hr IV .Q8H [facility] Rx#:[id number] Output: Urine 150 1400 Other: Voiding Method Bedside Commode - Constitutional General appearance: Present: cooperative, no acute distress - EENT Eyes: Present: PERRLA - Respiratory Details: No difficulty with respiration - Gastrointestinal Gastrointestinal Comment(s): Soft, tender to palpation in the right upper quadrant, nondistended, no rebound, no guarding - Musculoskeletal Musculoskeletal: Present: generalized weakness - Psychiatric Psychiatric: Present: A&O x's 3 - Labs CBC & Chem 7: 05/27/20 02:17 05/27/20 02:17 Labs: Abnormal Lab Results - Last 24 Hours (Table) 05/26/20 05/26/20 05/26/20 Range/Units 14:17 14:17 14:17 WBC 11.3 H (3.8-10.6) k/uL RBC 3.59 L (3.80-5.40) m/uL Hgb 10.5 L (11.4-16.0) gm/dL Hct 32.3 L (34.0-46.0) % Neutrophils # 8.4 H (1.3-7.7) k/uL APTT 21.4 L (22.0-30.0) sec Sodium 136 L (137-145) mmol/L Chloride (98-107) mmol/L Creatinine (0.52-1.04) mg/dL Plasma Lactic Acid Shaheed (0.7-2.0) mmol/L Calcium (8.4-10.2) mg/dL AST 274 H (14-36) U/L ALT 163 H (4-34) U/L Total Protein 6.0 L (6.3-8.2) g/dL Albumin (3.5-5.0) g/dL 05/26/20 05/26/20 05/27/20 Range/Units 14:21 20:32 02:17 WBC (3.8-10.6) k/uL RBC 2.97 L 2.93 L (3.80-5.40) m/uL Hgb 8.9 L D 8.9 L (11.4-16.0) gm/dL Hct 27.2 L 26.7 L (34.0-46.0) % Neutrophils # (1.3-7.7) k/uL APTT (22.0-30.0) sec Sodium (137-145) mmol/L Chloride (98-107) mmol/L Creatinine (0.52-1.04) mg/dL Plasma Lactic Acid Shaheed 0.6 L (0.7-2.0) mmol/L Calcium (8.4-10.2) mg/dL AST (14-36) U/L ALT (4-34) U/L Total Protein (6.3-8.2) g/dL Albumin (3.5-5.0) g/dL 05/27/20 Range/Units 02:17 WBC (3.8-10.6) k/uL RBC (3.80-5.40) m/uL Hgb (11.4-16.0) gm/dL Hct (34.0-46.0) % Neutrophils # (1.3-7.7) k/uL APTT (22.0-30.0) sec Sodium 134 L (137-145) mmol/L Chloride 109 H (98-107) mmol/L Creatinine 0.39 L (0.52-1.04) mg/dL Plasma Lactic Acid Shaheed (0.7-2.0) mmol/L Calcium 8.0 L (8.4-10.2) mg/dL AST 180 H (14-36) U/L ALT 154 H (4-34) U/L Total Protein 4.9 L (6.3-8.2) g/dL Albumin 3.1 L (3.5-5.0) g/dL Assessment and Plan (1) Grade III laceration of liver Narrative/Plan: 34-year-old female with grade 3 laceration of liver after blunt trauma - Currently, the patient is hemodynamically stable. No episodes of tachycardia or hypotension since her admission to the intensive care unit. Hemoglobin is stable at 8.9 over the last 2 draws. Currently, does not appear that the patient is actively bleeding - Will begin to slowly advance diet, advance to clear liquid diet this morning - Continue serial hemoglobin and hematocrit - Will continue to follow liver enzymes, currently bilirubin level is normal with elevation in transaminases - Pain control - IV fluids - ICU consult is currently pending - Patient's primary care physician has also been consultation for medical management - As the patient does not appear to have any signs of continuing hemorrhage, she appears surgically stable for down grade from the ICU to floor with telemetry - As the patient is hemodynamically stable, we will continue with nonoperative management of the laceration of the liver. Further recommendations will be made based on the patient's clinical progress. Current Visit: Yes Status: Acute Code(s): S36.116A - MAJOR LACERATION OF LIVER, INITIAL ENCOUNTER SNOMED Code(s): 551350702
[2020-05-27 09:41] LABS: HCT 31.7 % (34.0-46.0); HGB 10.4 gm/dL (11.4-16.0); Hypochromasia Slight; MCH 29.6 pg (25.0-35.0); MCHC 32.8 g/dL (31.0-37.0); MCV 90.3 fL (80.0-100.0); Mean Platelet Volume 8.8; Platelet Count 227 k/uL (150-450); RBC 3.51 m/uL (3.80-5.40)
[2020-05-27] MEDS: NICOTINE 14MG/24HR PATCH TRANSDERM SCH (09:44)
[2020-05-27] MEDS: GABAPENTIN 300 MG CAP PO SCH ×3 (09:44→19:57)
--- NOTE | 2020-05-27 13:49 | P.CNPUL ---
History of Present Illness Consult date: 05/27/20 Requesting physician: Tameka Rocha Reason for consult: other (ICU management) Chief complaint: Abdominal pain History of present illness: This is a 34-year-old female admitted yesterday, 6 hours prior to presentation to the ER, patient was moving a washer and dryer with one of her friends, the washer fell off its stand and bend the patient down against the wall. Patient developed severe right-sided abdominal pain, and the pain was getting worse until she arrived to the ER 4 hours later after the injury. Patient had no nausea no vomiting, and she was hemodynamically stable. However her CT of the abdomen and pelvis showed a grade 3 liver laceration with surrounding hematoma. Patient was admitted, seen by general surgery on consultation, and considering that she was admitted to the ICU, were asked to see her on consultation. Presently the patient remains hemodynamically stable, denies any shortness of breath, denies any pulmonary symptoms, denies any cardiac symptoms, continues to have some abdominal pain, fairly well controlled with pain medications. Patient was already seen by general surgery this morning, and planning to transfer the patient out of the ICU to a regular medical floor. Labs today showed hemoglobin of 10.4, admission hemoglobin was 10.5. Liver enzymes showed slightly elevated AST of 180 and ALT of 154. Rest of the labs were basically unremarkable Review of Systems Constitutional: Negative HEENT: Negative Pulmonary: Negative Cardiac: Negative GI: Right upper quadrant abdominal pain. Genitourinary: Negative Musculoskeletal: Negative Hematologic: Negative Psychiatric: Negative Endocrine: Negative Skin: Negative Neurologic: Negative Past Medical History Past Medical History: Cancer, Fibromyalgia, Seizure Disorder Additional Past Medical History / Comment(s): hernia, DDD,cervical CA, SEIZURES for approx 6 mos due to a closed head injury (2009), Hx of gestational diabetes., frequent constipation., hernia., States poor vision right eye. History of Any Multi-Drug Resistant Organisms: None Reported Past Surgical History: Adenoidectomy, Section, Hernia Repair, Orthopedic Surgery, Tonsillectomy, Tubal Ligation Additional Past Surgical History / Comment(s): cyst removed rt labia, x2, cervical surgery "freezing & scrapping" for cancer. Past Anesthesia/Blood Transfusion Reactions: No Reported Reaction, Motion Sickness Additional Past Anesthesia/Blood Transfusion Reaction / Comment(s): states "grandmother has hx fungal meningitis r/t ear infection/ran high fever with ear surgery-pt not sure if fever r/t meningitis or anesthesia. Past Psychological History: Anxiety, Bipolar, Depression Smoking Status: Current every day smoker Past Alcohol Use History: None Reported Past Drug Use History: Marijuana - Past Family History Mother Family Medical History: Cancer Additional Family Medical History / Comment(s): cervical Medications and Allergies Home Medications Medication Instructions Recorded Confirmed Type Gabapentin [Neurontin] 300 mg PO TID 05/26/20 05/26/20 History HYDROcodone/APAP 7.5-325MG [[place] 1 tab PO BID PRN 05/26/20 05/26/20 History 7.5-325] Multivitamin [Multivitamins Adult 1 tab PO DAILY 05/26/20 05/26/20 History Gummies] Naproxen Sodium [Aleve] 660 mg PO DAILY PRN 05/26/20 05/26/20 History Allergies Allergy/AdvReac Type Severity Reaction Status Date / Time latex Allergy Swelling,itching,skin Verified 05/26/20 15:01 redness methocarbamol [From Robaxin] Allergy Rash/Hives Verified 05/26/20 15:01 Sulfa (Sulfonamide Allergy Anaphylaxis Verified 05/26/20 15:01 Antibiotics) Physical Exam Vitals: Vital Signs Temp Pulse Pulse Resp BP BP Pulse Ox 05/27/20 08:30 72 19 125/76 97 05/27/20 08:00 75 22 122/75 96 05/27/20 07:00 77 12 143/94 96 05/27/20 06:30 80 17 129/84 94 L 05/27/20 06:00 78 15 120/91 96 05/27/20 05:30 77 18 122/78 94 L 05/27/20 05:00 84 17 127/94 94 L 05/27/20 04:30 73 15 111/83 95 05/27/20 04:00 98.3 F 74 14 124/76 95 05/27/20 03:30 74 18 116/69 93 L 05/27/20 03:00 66 11 L 124/65 96 05/27/20 02:30 77 15 110/71 94 L 05/27/20 02:00 78 21 119/75 94 L 05/27/20 01:30 78 13 126/73 93 L 05/27/20 01:00 78 15 123/73 94 L 05/27/20 00:30 98.7 F 77 16 123/75 94 L 05/27/20 00:00 75 16 121/77 95 05/26/20 23:30 74 12 121/74 95 05/26/20 23:00 77 16 121/69 94 L 05/26/20 22:30 67 14 116/68 95 05/26/20 22:00 66 15 109/63 95 05/26/20 21:30 72 16 128/75 92 L 05/26/20 21:00 65 15 114/77 96 05/26/20 20:30 60 15 125/84 98 05/26/20 20:00 98.4 F 63 14 135/67 97 05/26/20 19:30 71 16 131/65 95 05/26/20 19:00 70 16 141/88 94 L 05/26/20 18:30 73 24 113/63 97 05/26/20 18:00 64 21 119/68 95 05/26/20 17:30 68 27 H 133/78 89 L 05/26/20 17:00 98.3 F 60 15 135/88 99 05/26/20 16:37 97.9 F 68 18 131/80 99 05/26/20 15:44 98.2 F 61 16 135/88 98 05/26/20 14:08 18 05/26/20 13:44 98.2 F 87 28 H 118/68 99 Intake and Output 05/26/20 05/27/20 05/27/20 22:59 06:59 14:59 Intake Total 750 1000 125 Output Total 350 1200 200 Balance 400 -200 -75 Intake: IV 1000 125 Lactated Ringers 1000 125 Intake, IV Titration 750 Amount Lactated Ringers 1,000 ml 750 @ 125 mls/hr IV .Q8H [facility] Rx#:[id number] Output: Urine 350 1200 200 Other: Voiding Method Bedside Commode Bedside Commode Bedside Commode Weight 57.606 kg 62.1 kg Physical Exam: Revealed a 34-year-old female in no distress. Head: Atraumatic, normocephalic. HEENT:[Neck is supple.] [No neck masses.] [No thyromegaly.] [No JVD.] Chest: [Clear throughout, no crackles, no rhonchi, no wheezes.] Cardiac Exam: [Normal S1 and S2, no S3 gallop, no murmur.] Abdomen: [Soft, tender to palpation over the right upper quadrant. No ecchymosis. No distention. No rebound, no guarding. ] Extremities: [No clubbing, no edema, no cyanosis.] Neurological Exam: [No focal neurologic deficit.] Alert oriented 3. Psychiatric: Normal mood affect and normal mental status examination. Skin: No rashes. Results - Laboratory Findings CBC and BMP: 05/27/20 08:27 05/27/20 02:17 PT/INR, D-dimer PT 9.8 sec (9.0-12.0) 05/26/20 14:17 INR 0.9 (<1.2) 05/26/20 14:17 Abnormal lab findings: Abnormal Labs 05/26/20 05/26/20 05/26/20 14:17 14:17 14:17 WBC 11.3 H RBC 3.59 L Hgb 10.5 L Hct 32.3 L Neutrophils # 8.4 H APTT 21.4 L Sodium 136 L Chloride Creatinine Plasma Lactic Acid Shaheed Calcium AST 274 H ALT 163 H Total Protein 6.0 L Albumin 05/26/20 05/26/20 05/27/20 14:21 20:32 02:17 WBC RBC 2.97 L 2.93 L Hgb 8.9 L D 8.9 L Hct 27.2 L 26.7 L Neutrophils # APTT Sodium Chloride Creatinine Plasma Lactic Acid Shaheed 0.6 L Calcium AST ALT Total Protein Albumin 05/27/20 05/27/20 02:17 08:27 WBC RBC 3.51 L Hgb 10.4 L Hct 31.7 L Neutrophils # APTT Sodium 134 L Chloride 109 H Creatinine 0.39 L Plasma Lactic Acid Shaheed Calcium 8.0 L AST 180 H ALT 154 H Total Protein 4.9 L Albumin 3.1 L - Diagnostic Findings Additional studies: CT of abdomen and pelvis reviewed chest x-ray was also reviewed. Assessment and Plan Assessment: Impression: Acute grade 3 laceration of the liver after blunt trauma. History of fibromyalgia. History of seizure disorder. History of closed head injury. History of gestational diabetes. History of cervical cancer. Recommendation: Agree with the present conservative measures as outlined by general surgery on the case. Patient could be transferred out of the ICU to regular medical floor Will follow on when necessary basis. Time with Patient: Greater than 30
[2020-05-27 14:29] LABS: HCT 29.1 % (34.0-46.0); HGB 9.6 gm/dL (11.4-16.0); MCH 29.9 pg (25.0-35.0); MCHC 32.9 g/dL (31.0-37.0); MCV 90.9 fL (80.0-100.0); Mean Platelet Volume 8.7; Platelet Count 209 k/uL (150-450); RBC 3.21 m/uL (3.80-5.40); RDW 13.8 % (11.5-15.5); WBC 6.6 k/uL (3.8-10.6)
[2020-05-27 20:55] LABS: HCT 29.6 % (34.0-46.0); HGB 9.9 gm/dL (11.4-16.0); MCH 30.3 pg (25.0-35.0); MCHC 33.5 g/dL (31.0-37.0); MCV 90.5 fL (80.0-100.0); Mean Platelet Volume 8.7; Platelet Count 220 k/uL (150-450); RBC 3.27 m/uL (3.80-5.40); RDW 14.3 % (11.5-15.5); WBC 8.1 k/uL (3.8-10.6)
[2020-05-28] MEDS: LACTATED RINGERS 1,000 ML IV SCH ×2 (00:16→10:35)
[2020-05-28] MEDS: HYDROmorphone 1 MG/ML 1 ML SYRINGE IVP PRN ×4 (01:53→11:16)
[2020-05-28] MEDS: NICOTINE 14MG/24HR PATCH TRANSDERM SCH (02:07)
[2020-05-28] MEDS: GABAPENTIN 300 MG CAP PO SCH (04:49)
[2020-05-28 08:47] LABS: HCT 30.5 % (34.0-46.0); HGB 9.9 gm/dL (11.4-16.0); MCH 29.4 pg (25.0-35.0); MCHC 32.4 g/dL (31.0-37.0); MCV 90.6 fL (80.0-100.0); Mean Platelet Volume 8.3; Platelet Count 225 k/uL (150-450); RBC 3.36 m/uL (3.80-5.40); RDW 13.9 % (11.5-15.5)
[2020-05-28 09:05] LABS: ALT 150 U/L (4-34); AST 86 U/L (14-36); African American GFR (CKD) >90 (>60 ml/min/1.73 sqM); Albumin 3.7 g/dL (3.5-5.0); Alkaline Phosphatase 64 U/L (38-126); Anion Gap 5 mmol/L; Blood Urea Nitrogen 4 mg/dL (7-17); Calcium 8.8 mg/dL (8.4-10.2); Carbon Dioxide 23 mmol/L (22-30); Chloride 108 mmol/L (98-107); Glucose 96 mg/dL (74-99); Non-African American GFR(CKD) >90 (>60 ml/min/1.73 sqM); Potassium 4.3 mmol/L (3.5-5.1); Sodium 136 mmol/L (137-145); Total Bilirubin 0.6 mg/dL (0.2-1.3); Total Protein 5.9 g/dL (6.3-8.2)
[2020-05-28 12:12] VITALS: BP 122/84; PULSE 87; RESP 18; TEMP 98.2
--- NOTE | 2020-05-28 12:29 | P.DS ---
Providers Date of admission: 05/26/20 15:12 Attending physician: Tameka Rocha DO Consults: 05/26/20 15:26 Consult Physician Stat Consulting Provider: Alexandro Jaimes Consult Reason/Comments: Grade 3 liver laceration Do you want consulting provider notified?: Already Contacted 05/27/20 06:55 Consult Physician Routine Consulting Provider: Joao Stockton Consult Reason/Comments: pt known to you Do you want consulting provider notified?: Yes Primary care physician: Joao Stockton - Discharge Diagnosis(es) (1) Grade III laceration of liver Current Visit: Yes Status: Acute Hospital Course: 34-year-old female presented to the emergency department after a blunt trauma. Patient did have heavy washer fall on her and. Her against a wall. She was found to have a grade 3 laceration of the liver and was admitted. Patient did not appear to have an active bleed. She was hemodynamically stable throughout her admission. Hemoglobin was trended with no significant drop of hemoglobin throughout admission. On admission day #2, the patient was surgically stable for discharge. Her liver enzymes appear to be downward trending. There is no hyperbilirubinemia. She is to follow with her primary care physician as an outpatient. She was instructed not to do any significant heavy lifting or physical activity for approximately 4-6 weeks. Patient Condition at Discharge: Fair Plan - Discharge Summary Discharge Rx Participant: Yes New Discharge Prescriptions: New oxyCODONE HCL/ACETAMINOPHEN [Percocet 7.5-325 mg] 1 tab PO Q4HR PRN 3 Days #18 tab PRN Reason: Pain Continue Gabapentin [Neurontin] 300 mg PO TID Naproxen Sodium [Aleve] 660 mg PO DAILY PRN PRN Reason: Pain Multivitamin [Multivitamins Adult Gummies] 1 tab PO DAILY Discontinued HYDROcodone/APAP 7.5-325MG [[place] 7.5-325] 1 tab PO BID PRN PRN Reason: Pain Discharge Medication List Gabapentin [Neurontin] 300 mg PO TID 05/26/20 [History] Multivitamin [Multivitamins Adult Gummies] 1 tab PO DAILY 05/26/20 [History] Naproxen Sodium [Aleve] 660 mg PO DAILY PRN 05/26/20 [History] oxyCODONE HCL/ACETAMINOPHEN [Percocet 7.5-325 mg] 1 tab PO Q4HR PRN 3 Days #18 tab 05/28/20 [Rx] Follow up Appointment(s)/Referral(s): Joao Stockton MD [Primary Care Provider] - 1-2 days Activity/Diet/Wound Care/Special Instructions: No heavy physical activity for 6 weeks. No major contact sports Avoid alcoholic beverages Take pain medication as necessary Return to the emergency department if worsening right upper quadrant pain, fever, jaundice or hematemesis Follow-up with primary care physician Discharge Disposition: HOME SELF-CARE
--- NOTE | 2020-05-28 15:21 | CONS ---
CONSULTATION A 34-year-old white female status post laceration injury to her liver. She was moving a washer and dryer with one of her friends. Washer fell of the stand and bent the patient down against the wall, developed severe right-sided abdominal pain. Pain is getting worse until she came to the ER after the injury. No nausea, vomiting. She had a grade 3 liver laceration with surrounding hematoma, was admitted. Surgery saw her and was going to watch her for to see how she did with liver enzymes and nit operate at this time. Hemoglobin is 10.4 admitted on it was 10.5, ALT and AST is 180, 154. 14 POINT REVIEW OF SYSTEMS: Fourteen-point review of systems negative except for as mentioned in HPI. PAST MEDICAL HISTORY: Fibromyalgia, seizure disorder, cervical cancer, degenerative disc disease, seizures, history of gestational diabetes. SURGERIES: Adenoidectomy, , hernia repair, orthopedic surgery, tonsillectomy, tubal ligation, cyst removed, right tibia, x2, anxiety, bipolar depression, current everyday smoker. No alcohol. drug use marijuana. FAMILY HISTORY: Mother with cancer of the cervix. HOME MEDICINES: Neurontin 300 t.i.d., Waucoma 7.5 b.i.d., multivitamin daily, Lasix 60 mg daily. ALLERGIES: LATEX, ROBAXIN, SULFA. Vital signs show pulse 60s to 80s, respiratory rate 16-20, blood pressure is 115 to 120s/60s to 70s, O2 is 94% to 95% on room air. PHYSICAL EXAM: A 34-year-old female in no acute distress. HEAD: Normocephalic, atraumatic. NECK: Supple. No mass. LUNGS: No rales or rhonchi. No crackles. CARDIAC: S1, S2. ABDOMEN: Soft, nontender. No ecchymosis. No distention. No rebound. EXTREMITIES: No cyanosis, clubbing, edema. NEUROLOGIC: Cranial nerves are intact. PSYCH: Fair mood and affect. White count is 7, hemoglobin is 10.4, sodium 134, potassium 3.6, BUN 9, creatinine 0.39. INR 0.9, hemoglobin is 8.9, sodium 134, creatinine 0.39. AST is 180, ALT is 154. ASSESSMENT: 1. Grade 3 laceration of the liver after blunt trauma. 2. History of fibromyalgia. 3. History of seizure disorder, close head injury. 4. Gestational diabetes. 5. History of cervical cancer. RECOMMENDATION: As long as the liver enzymes are current and hemoglobin stabilizes, no need for surgery. Will just monitor her. Please see further orders. Home medications reordered. MMODL / IJN: [id number] /
== END 2020-05-28 13:15 | disposition home or self-care (01) | DRG 443 ==
LOC: EC 13:43 → 2SICU 15:12 → 5NMEDONC 05-27 21:49
PROVIDERS: ADMIT Surgery; ATTEND Surgery
DX: S36.116A Major laceration of liver, initial encounter (principal); F31.9 Bipolar disorder, unspecified; G40.909 Epilepsy, unspecified, not intractable, without status epilepticus; Z20.828 Contact with and (suspected) exposure to other viral communicable diseases; M79.7 Fibromyalgia; H54.7 Unspecified visual loss; K59.00 Constipation, unspecified; F17.200 Nicotine dependence, unspecified, uncomplicated; Z71.6 Tobacco abuse counseling; Z79.899 Other long term (current) drug therapy; Z98.890 Other specified postprocedural states; Z98.891 History of uterine scar from previous surgery; Z98.51 Tubal ligation status; Z90.89 Acquired absence of other organs; Z86.32 Personal history of gestational diabetes; Z87.19 Personal history of other diseases of the digestive system; Z87.42 Personal history of other diseases of the female genital tract; Z86.61 Personal history of infections of the central nervous system; Z85.41 Personal history of malignant neoplasm of cervix uteri; Z87.828 Personal history of other (healed) physical injury and trauma; Z87.39 Personal history of other diseases of the musculoskeletal system and connective tissue; Z88.2 Allergy status to sulfonamides; Z88.8 Allergy status to other drugs, medicaments and biological substances; Z91.040 Latex allergy status; W20.8XXA Other cause of strike by thrown, projected or falling object, initial encounter; Z80.49 Family history of malignant neoplasm of other genital organs
CPT/HCPCS: 36415; 71046; 71110; 74177; 80053; 83605; 83690; 85025; 85027; 85610; 85730; 86850; 86900; 86901; 93005; 96361; 96374; 96375; 99291

== ENCOUNTER → 2020-07-05 | Outpatient (CLI) | payer OTHER ==
--- NOTE | 2020-07-05 12:51 | CT ---
EXAMINATION TYPE: CT abdomen w con DATE OF EXAM: 07/05/2020 COMPARISON: CT abdomen pelvis 05/26/2020 HISTORY: follow up to liver laceration CT DLP: 295.2 mGycm Automated exposure control for dose reduction was used. TECHNIQUE: Helical acquisition of images was performed from the lung bases through the top of iliac crest to include entire abdomen. CONTRAST: Performed without Oral Contrast and with IV Contrast, patient injected with 100 mL of Isovue 300. FINDINGS: LUNG BASES: Normal. LIVER: The right posterior liver segments 7 and 6 demonstrate interval improvement of hepatic lacerat ion and hematoma, with trauma and laceration injury seen on coronal plane spanning an area of approxi mately 8.0 x 2.8 cm (7:46), which previously spanned an area of 9.5 x 5.8 cm on 05/26/2020 CT compariso n. There is a small subcapsular hematoma component which is also moderately decreased versus 05/26/2020 . The liver is enlarged measuring up to 19.6 cm craniocaudal. BILIARY SYSTEM: Normal. PANCREAS: Normal. SPLEEN: Normal. Splenule. ADRENALS: Normal. KIDNEYS: Normal. BOWEL: Normal. PERITONEUM: No free air is visualized. No free fluid. ADENOPATHY: No lymphadenopathy. VASCULATURE: No abdominal aortic aneurysm. MUSCULOSKELETAL: Normal. IMPRESSION: Moderate interval improvement of right posterior hepatic laceration, hematoma, and subcapsular hemato ma versus 05/26/2020.
== END | disposition home or self-care (01) ==
LOC: RADCTMAIN 07:49
PROVIDERS: ATTEND Family Medicine
DX: S36.115A Moderate laceration of liver, initial encounter (principal)
CPT/HCPCS: 74160; Q9967

== ENCOUNTER 2020-07-30 11:55 | Emergency (ER) | payer OTHER ==
[2020-07-30 12:14] VITALS: RESP 18; TEMP 98.2
[2020-07-30] MEDS ORDERED: MORPHINE SULFATE 4 MG/ML SYRINGE IV STA (12:34)
[2020-07-30] MEDS ORDERED: ONDANSETRON 4 MG/2 ML VIAL IVP STA (12:34)
[2020-07-30] MEDS ORDERED: SODIUM CHLORIDE 0.9% 1,000 ML IV STA (12:34)
[2020-07-30 13:07] LABS: ALT 13 U/L (4-34); AST 23 U/L (14-36); African American GFR (CKD) >90 (>60 ml/min/1.73 sqM); Albumin 4.5 g/dL (3.5-5.0); Alkaline Phosphatase 68 U/L (38-126); Anion Gap 8 mmol/L; Blood Urea Nitrogen 11 mg/dL (7-17); Calcium 9.5 mg/dL (8.4-10.2); Carbon Dioxide 27 mmol/L (22-30); Chloride 102 mmol/L (98-107); Glucose 86 mg/dL (74-99); Non-African American GFR(CKD) >90 (>60 ml/min/1.73 sqM); Potassium 4.5 mmol/L (3.5-5.1); Sodium 137 mmol/L (137-145); Total Bilirubin 0.2 mg/dL (0.2-1.3); Total Protein 7.1 g/dL (6.3-8.2)
[2020-07-30 13:08] LABS: Basophils # (A) 0.1 k/uL (0-0.2); Basophils % (A) 1 %; Eosinophils # (A) 0.1 k/uL (0-0.7); Eosinophils % (A) 1 %; HCT 42.4 % (34.0-46.0); Hypochromasia Slight; Lymphocytes # (A) 3.7 k/uL (1.0-4.8); Lymphocytes % (A) 30 %; MCH 27.7 pg (25.0-35.0); MCHC 30.8 g/dL (31.0-37.0); MCV 89.8 fL (80.0-100.0); Mean Platelet Volume 8.4; Monocytes # (A) 0.3 k/uL (0-1.0); Monocytes % (A) 3 %; Neutrophils % (A) 65 %; Platelet Count 317 k/uL (150-450); RBC 4.73 m/uL (3.80-5.40); RDW 15.1 % (11.5-15.5); WBC 12.3 k/uL (3.8-10.6)
[2020-07-30 13:11] LABS: Amorphous Sediment,Urine Occasional /hpf; Appearance,Urine Cloudy (Clear); Bilirubin,Urine Negative (Negative); Blood,Urine Small (Negative); Color,Urine Yellow; Glucose,Urine (UA) Negative (Negative); Ketones,Urine Negative (Negative); Leukocyte Esterase,Urine Negative (Negative); Mucus,Urine Rare /hpf; Nitrite,Urine Negative (Negative); PH, Urine 6.5 (5.0-8.0); Protein,Urine Negative (Negative); RBC,Urine 39 /hpf (0-5); Specific Gravity,Urine 1.026 (1.001-1.035); Squamous Epithelial Cell,Urine 20 /hpf (0-4); Urobilinogen,Urine <2.0 mg/dL (<2.0); WBC,Urine 4 /hpf (0-5)
[2020-07-30 13:25] LABS: HGB 13.1 gm/dL (11.4-16.0)
--- NOTE | 2020-07-30 13:47 | CT ---
EXAMINATION TYPE: CT abdomen pelvis w con DATE OF EXAM: 07/30/2020 COMPARISON: 07/05/2020, 05/26/2020 INDICATION: Abd pain DLP: 628.6 mGycm, Automated exposure control for dose reduction was used. CONTRAST: 100 mL of Isovue 300. Study performed without Oral Contrast TECHNIQUE: Axial images were obtained from above the diaphragm to the pubic rami in the axial plane a t 5 mm thick sections. Reconstructed images are reviewed on the computer in the coronal plane. FINDINGS: Limited CT sections are obtained the lung bases. The lung bases are clear. CT ABDOMEN: Liver: Couple of hypodensities are in the posterior right lobe liver probably with prior laceration. The largest measures 2.9 cm and 42 Hounsfield units. Smaller is 1.1 cm and 34 Hounsfield units. This is slightly smaller than the comparison. Spleen: Normal Pancreas: Normal Adrenal glands: The adrenal glands are normal. Gallbladder: Normal Kidneys: No masses are evident. No hydronephrosis is present. No cysts are present. There may be a punctate 0.2 cm renal stone in the mid lateral right kidney without obstruction. Delayed images thro ugh the kidneys are unremarkable. Aorta: Normal Inferior vena cava: Normal. CT PELVIS: Abundant fecal debris is through the colon. There are a few small bowel loops containing fluid within the lower pelvis. Correlate for ileus. No obstruction is evident. No dilated loops of bowel are evid ent. The study is without oral contrast causing some limitation on the evaluation. Appendix: Normal as visualized. Urinary bladder: Normal. Genitourinary structures: Uterus is normal. Adnexal regions appear within normal limits. Some follicl es may be present left ovary. There is a cyst on the right ovary measuring 1.6 cm transverse. Osseous structures: No suspicious lytic or sclerotic lesions. IMPRESSIONS: 1. Improving hepatic lacerations within the right lobe liver appears somewhat smaller than the chirag rison study. 2. Nonobstructing right renal stone. 3. Right adnexal cyst measures 1.6 cm.
[2020-07-30] MEDS ORDERED: ACET/COD 300 MG/30 MG STARTER PACK 6 TAB BTL PO STA (13:54)
[2020-07-30] MEDS ORDERED: HYDROmorphone 0.5 MG/0.5 ML SYRINGE IVP STA (13:54)
--- NOTE | 2020-07-30 13:56 | ED ---
Abdominal Pain HPI - General Chief Complaint: Abdominal Pain Stated Complaint: Abd Pain Time Seen by Provider: 07/30/20 12:16 Source: patient, RN notes reviewed Mode of arrival: ambulatory Limitations: no limitations - History of Present Illness Initial Comments: 34-year-old female presents emergency Department chief complaints of right-sided abdominal pain. Patient states 2 months ago she had a liver laceration from a washing machine. Patient states that she was lifting some parts at work today and had increasing pain. Patient states that she is concerned she may have ruptured something. Patient states she was cleared to go back to work. Patient denies any diarrhea constipation no nausea vomiting chest pain or shortness breath. - Related Data Home Medications Medication Instructions Recorded Confirmed Gabapentin [Neurontin] 300 mg PO QID 07/30/20 07/30/20 Hydrocodone/Acetaminophen [[place] 1 tab PO TID PRN 07/30/20 07/30/20 7.5-325] Allergies Allergy/AdvReac Type Severity Reaction Status Date / Time latex Allergy Swelling,itching,skin Verified 07/30/20 13:47 redness methocarbamol [From Robaxin] Allergy Rash/Hives Verified 07/30/20 13:47 Sulfa (Sulfonamide Allergy Anaphylaxis Verified 07/30/20 13:47 Antibiotics) Review of Systems ROS Statement: Those systems with pertinent positive or pertinent negative responses have been documented in the HPI. ROS Other: All systems not noted in ROS Statement are negative. Past Medical History Past Medical History: Cancer, Fibromyalgia, Seizure Disorder Additional Past Medical History / Comment(s): hernia, DDD,cervical CA, SEIZURES for approx 6 mos due to a closed head injury (2009), Hx of gestational diabetes., frequent constipation., hernia., States poor vision right eye, liver laceration History of Any Multi-Drug Resistant Organisms: None Reported Past Surgical History: Adenoidectomy, Section, Hernia Repair, Orthopedic Surgery, Tonsillectomy, Tubal Ligation Additional Past Surgical History / Comment(s): cyst removed rt labia, x2, cervical surgery "freezing & scrapping" for cancer. Past Anesthesia/Blood Transfusion Reactions: No Reported Reaction, Motion Sickness Additional Past Anesthesia/Blood Transfusion Reaction / Comment(s): states "grandmother has hx fungal meningitis r/t ear infection/ran high fever with ear surgery-pt not sure if fever r/t meningitis or anesthesia. Past Psychological History: Anxiety, Bipolar, Depression Smoking Status: Current every day smoker Past Alcohol Use History: None Reported Past Drug Use History: Marijuana - Past Family History Mother Family Medical History: Cancer Additional Family Medical History / Comment(s): cervical General Exam Limitations: no limitations General appearance: alert, in no apparent distress Head exam: Present: atraumatic, normocephalic, normal inspection Respiratory exam: Present: normal lung sounds bilaterally. Absent: respiratory distress, wheezes, rales, rhonchi, stridor Cardiovascular Exam: Present: regular rate, normal rhythm, normal heart sounds. Absent: systolic murmur, diastolic murmur, rubs, gallop, clicks GI/Abdominal exam: Present: soft, tenderness (Mild right-sided), normal bowel sounds. Absent: distended, guarding, rebound, rigid Back exam: Absent: CVA tenderness (R), CVA tenderness (L) Course Vital Signs 07/30/20 12:11 Temperature 98.2 F Pulse Rate 92 Respiratory 18 Rate Blood Pressure 128/85 O2 Sat by Pulse 99 Oximetry Medical Decision Making - Medical Decision Making CT of the abdomen was obtained along with lab work were no significant findings. Patient is improving healing liver laceration. Patient will write pain medication was riding a work note for no heavy lifting she'll follow-up with her PCP and surgeon. Return parameters discussed. - Lab Data Result diagrams: 07/30/20 12:38 07/30/20 12:38 Lab Results 07/30/20 07/30/20 07/30/20 Range/Units 12:38 12:38 12:38 WBC 12.3 H (3.8-10.6) k/uL RBC 4.73 (3.80-5.40) m/uL Hgb 13.1 D (11.4-16.0) gm/dL Hct 42.4 (34.0-46.0) % MCV 89.8 (80.0-100.0) fL MCH 27.7 (25.0-35.0) pg MCHC 30.8 L (31.0-37.0) g/dL RDW 15.1 (11.5-15.5) % Plt Count 317 (150-450) k/uL Neutrophils % 65 % Lymphocytes % 30 % Monocytes % 3 % Eosinophils % 1 % Basophils % 1 % Neutrophils # 8.0 H (1.3-7.7) k/uL Lymphocytes # 3.7 (1.0-4.8) k/uL Monocytes # 0.3 (0-1.0) k/uL Eosinophils # 0.1 (0-0.7) k/uL Basophils # 0.1 (0-0.2) k/uL Hypochromasia Slight Sodium 137 (137-145) mmol/L Potassium 4.5 (3.5-5.1) mmol/L Chloride 102 (98-107) mmol/L Carbon Dioxide 27 (22-30) mmol/L Anion Gap 8 mmol/L BUN 11 (7-17) mg/dL Creatinine 0.62 (0.52-1.04) mg/dL Est GFR (CKD-EPI)AfAm >90 (>60 ml/min/1.73 sqM) Est GFR (CKD-EPI)NonAf >90 (>60 ml/min/1.73 sqM) Glucose 86 (74-99) mg/dL Calcium 9.5 (8.4-10.2) mg/dL Total Bilirubin 0.2 (0.2-1.3) mg/dL AST 23 (14-36) U/L ALT 13 (4-34) U/L Alkaline Phosphatase 68 (38-126) U/L Total Protein 7.1 (6.3-8.2) g/dL Albumin 4.5 (3.5-5.0) g/dL Lipase 58 (23-300) U/L Urine Color Yellow Urine Appearance Cloudy H (Clear) Urine pH 6.5 (5.0-8.0) Ur Specific [place] 1.026 (1.001-1.035) Urine Protein Negative (Negative) Urine Glucose (UA) Negative (Negative) Urine Ketones Negative (Negative) Urine Blood Small H (Negative) Urine Nitrite Negative (Negative) Urine Bilirubin Negative (Negative) Urine Urobilinogen <2.0 (<2.0) mg/dL Ur Leukocyte Esterase Negative (Negative) Urine RBC 39 H (0-5) /hpf Urine WBC 4 (0-5) /hpf Ur Squamous Epith Cells 20 H (0-4) /hpf Amorphous Sediment Occasional H (None) /hpf Urine Mucus Rare H (None) /hpf Disposition Clinical Impression: Abdominal pain Disposition: HOME SELF-CARE Condition: Stable Instructions (If sedation given, give patient instructions): Abdominal Pain (ED) Additional Instructions: Please return to the Emergency Department if symptoms worsen or any other concerns. Is patient prescribed a controlled substance at d/c from ED?: No Referrals: Joao Stockton MD [Primary Care Provider] - 1-2 days Time of Disposition: 13:55
[2020-07-30 14:08] VITALS: BP 122/80; PULSE 85
== END 2020-07-30 14:13 | disposition home or self-care (01) ==
LOC: EC 11:55
DX: R10.9 Unspecified abdominal pain (principal); S36.113D Laceration of liver, unspecified degree, subsequent encounter; M79.7 Fibromyalgia; G40.909 Epilepsy, unspecified, not intractable, without status epilepticus; F17.200 Nicotine dependence, unspecified, uncomplicated; Z79.899 Other long term (current) drug therapy; Z91.040 Latex allergy status; Z88.2 Allergy status to sulfonamides; Z88.8 Allergy status to other drugs, medicaments and biological substances; Z87.19 Personal history of other diseases of the digestive system; Z85.41 Personal history of malignant neoplasm of cervix uteri; Z98.890 Other specified postprocedural states; X58.XXXD Exposure to other specified factors, subsequent encounter
CPT/HCPCS: 36415; 80053; 83690; 85025; 81001; 74177; 99284; 96374; 96375 ×2; 96361; J2270; J2405; J1170; Q9967

== ENCOUNTER 2020-10-14 21:12 | Emergency (ER) | payer OTHER ==
[2020-10-14] MEDS ORDERED: ONDANSETRON 4 MG/2 ML VIAL IVP STA (21:26)
[2020-10-14] MEDS ORDERED: MORPHINE SULFATE 4 MG/ML SYRINGE IV STA (21:26)
[2020-10-14] MEDS ORDERED: SODIUM CHLORIDE 0.9% 1,000 ML IV STA (21:26)
[2020-10-14 21:53] LABS: Basophils # (A) 0.1 k/uL (0-0.2); Basophils % (A) 2 %; Eosinophils # (A) 0.2 k/uL (0-0.7); Eosinophils % (A) 3 %; HCT 39.7 % (34.0-46.0); HGB 13.2 gm/dL (11.4-16.0); Lymphocytes % (A) 31 %; MCH 28.3 pg (25.0-35.0); MCHC 33.3 g/dL (31.0-37.0); MCV 84.9 fL (80.0-100.0); Monocytes # (A) 0.4 k/uL (0-1.0); Monocytes % (A) 6 %; Neutrophils # (A) 3.5 k/uL (1.3-7.7); Neutrophils % (A) 55 %; Platelet Count 300 k/uL (150-450); RBC 4.68 m/uL (3.80-5.40); RDW 15.3 % (11.5-15.5); WBC 6.3 k/uL (3.8-10.6)
[2020-10-14 22:04] LABS: ALT 16 U/L (4-34); AST 18 U/L (14-36); African American GFR (CKD) >90 (>60 ml/min/1.73 sqM); Albumin 4.5 g/dL (3.5-5.0); Alkaline Phosphatase 49 U/L (38-126); Amylase 55 U/L (30-110); Anion Gap 7 mmol/L; Blood Urea Nitrogen 15 mg/dL (7-17); Calcium 9.4 mg/dL (8.4-10.2); Carbon Dioxide 24 mmol/L (22-30); Chloride 106 mmol/L (98-107); Glucose 106 mg/dL (74-99); Lipase 91 U/L (23-300); Non-African American GFR(CKD) >90 (>60 ml/min/1.73 sqM); Potassium 4.1 mmol/L (3.5-5.1); Sodium 137 mmol/L (137-145); Total Bilirubin 0.2 mg/dL (0.2-1.3); Total Protein 7.2 g/dL (6.3-8.2)
--- NOTE | 2020-10-14 22:23 | CT ---
EXAMINATION TYPE: CT abdomen pelvis w con DATE OF EXAM: 10/14/2020 COMPARISON: 07/30/2020 HISTORY: abdominal pain, hx of hernia CT DLP: 623.9 mGycm Automated exposure control for dose reduction was used. CONTRAST: Performed with IV Contrast, patient injected with 100 mL of Isovue 300. Images obtained from the diaphragm to the floor the pelvis with IV contrast. Lung bases are clear. There is no pleural effusion. Heart size is normal. Liver spleen pancreas stomach gallbladder appear intact. Bile ducts are not dilated. There is no adrenal mass. There is 3 cm hypodense area posterior right lobe of the liver that is cons istent with sequela of the liver laceration and smaller than previous exam. There is no adrenal mass. Kidneys show satisfactory contrast opacification. There is no hydronephrosi s. Ureters are not dilated. There is no retroperitoneal adenopathy. There is no evidence of a thicken ed appendix. Appendix not well seen. Uterus is anteverted. Bladder distends smoothly. There is no pel nell mass. There is no free fluid in the pelvis. There is no inguinal hernia. There is 1 mm calculus i nterpolar right kidney. Lumbar vertebra have normal alignment. There is no compression fracture. Posterior elements are intac t. Bony pelvis is intact. Hip joints are intact. IMPRESSION: Cystic area in the posterior liver consistent with chronic hematoma that is smaller than old exam. No nobstructing tiny right renal calculus. No evidence of acute abdomen and pelvis.
[2020-10-14 22:44] LABS: Appearance,Urine Clear (Clear); Bilirubin,Urine Negative (Negative); Blood,Urine Moderate (Negative); Color,Urine Yellow; Glucose,Urine (UA) Negative (Negative); Hyaline Casts,Urine 1 /lpf (0-2); Ketones,Urine Trace (Negative); Leukocyte Esterase,Urine Negative (Negative); Mucus,Urine Rare /hpf; Nitrite,Urine Negative (Negative); Protein,Urine Trace (Negative); RBC,Urine 7 /hpf (0-5); Specific Gravity,Urine 1.031 (1.001-1.035); Squamous Epithelial Cell,Urine 1 /hpf (0-4); WBC,Urine 1 /hpf (0-5)
[2020-10-14 22:54] VITALS: RESP 18
[2020-10-14] MEDS ORDERED: HYDROmorphone 0.5 MG/0.5 ML SYRINGE IVP STA (23:03)
[2020-10-14] MEDS ORDERED: ONDANSETRON 4 MG ODT STARTER PACK 2 TAB BTL PO STA (23:42)
--- NOTE | 2020-10-14 23:42 | ED ---
General Adult HPI - General Chief complaint: Abdominal Pain Stated complaint: Abd Pain Time Seen by Provider: 10/14/20 21:18 Source: patient, RN notes reviewed, old records reviewed Mode of arrival: wheelchair Limitations: no limitations - History of Present Illness Initial comments: 35-year-old female patient to ED for evaluation of abdominal pain. Patient was that her last sedation was having pain right sided. She does report that she h as history of a traumatic liver laceration about 4 months ago she does have a degree of chronic pain in her abdomen as well as degenerative disc disease for which she takes [place] 3 times a day. She reports that her son developed nausea and vomiting diarrhea-like syndrome a couple days ago. She reports that she has also had nausea vomiting and diarrhea however she reports that she has had severe abdominal pain the last 3 days. She is also concerned that it could potentially also be the mesh from a hernia repair displaced. Systemic: Pt denies fatigue, fever/chills, rash. Pt denies weakness, night sweats, weight loss. Neuro: Pt denies headache, visual disturbances, syncope or pre-syncope. HEENT: Pt denies ocular discharge or irritation, otalgia, rhinorrhea, pharyngitis or notable lymphadenopathy. Cardiopulmonary: Pt denies chest pain, SOB, heart palpitations, dyspnea on exertion. Abdominal/GI: Pt denies abdominal pain, n/v/d. : Pt denies dysuria, burning w/ urination, frequency/urgency. Denies new onset urinary or bowel incontinence. MSK: Pt denies myalgia, loss of strength or function in extremities. Neuro: Pt denies new onset weakness, paresthesias. - Related Data Home Medications Medication Instructions Recorded Confirmed Gabapentin [Neurontin] 300 mg PO QID 07/30/20 10/14/20 Hydrocodone/Acetaminophen [[place] 1 tab PO TID PRN 07/30/20 10/14/20 7.5-325] ALPRAZolam [Xanax] 0.5 mg PO DAILY PRN 10/14/20 10/14/20 Allergies Allergy/AdvReac Type Severity Reaction Status Date / Time latex Allergy Swelling,itching,skin Verified 10/14/20 22:11 redness methocarbamol [From Robaxin] Allergy Rash/Hives Verified 10/14/20 22:11 Sulfa (Sulfonamide Allergy Anaphylaxis Verified 10/14/20 22:11 Antibiotics) Review of Systems ROS Statement: Those systems with pertinent positive or pertinent negative responses have been documented in the HPI. ROS Other: All systems not noted in ROS Statement are negative. Past Medical History Past Medical History: Cancer, Fibromyalgia, Seizure Disorder Additional Past Medical History / Comment(s): hernia, DDD,cervical CA, SEIZURES for approx 6 mos due to a closed head injury (2009), Hx of gestational diabetes., frequent constipation., hernia., States poor vision right eye, liver laceration History of Any Multi-Drug Resistant Organisms: None Reported Past Surgical History: Adenoidectomy, Section, Hernia Repair, Orthopedic Surgery, Tonsillectomy, Tubal Ligation Additional Past Surgical History / Comment(s): cyst removed rt labia, x2, cervical surgery "freezing & scrapping" for cancer. Past Anesthesia/Blood Transfusion Reactions: No Reported Reaction, Motion Sickness Additional Past Anesthesia/Blood Transfusion Reaction / Comment(s): states "grandmother has hx fungal meningitis r/t ear infection/ran high fever with ear surgery-pt not sure if fever r/t meningitis or anesthesia. Past Psychological History: Anxiety, Bipolar, Depression Smoking Status: Current every day smoker Past Alcohol Use History: None Reported Past Drug Use History: Marijuana - Past Family History Mother Family Medical History: Cancer Additional Family Medical History / Comment(s): cervical General Exam - General Exam Comments Initial Comments: Constitutional: NAD, AOX3, Pt has pleasant affect. HEENT: NC/AT, trachea midline, neck supple, no lymphadenopathy. External ears appear normal, without discharge. Mucous membranes moist. Eyes PERRLA, EOM intact. There is no scleral icterus. No pallor noted. Cardiopulmonary: RRR, no murmurs, rubs or gallops, no JVD noted. Lungs CTAB in anterior and posterior steinberg. No peripheral edema. Abdominal exam: Abdomen soft and non-distended. Abdomen mildly tender to palpation periumbilical right periumbilical region. Bowel sounds active in LLQ. No hepatosplenomegaly. No ecchymosis Neuro: CN II-XII grossly intact. No nuchal rigidity. MSK: Full active ROM in upper and lower extremities, 5/5 stregnth. Limitations: no limitations Course Vital Signs 10/14/20 10/14/20 10/14/20 21:13 21:46 22:52 Temperature 97.9 F Pulse Rate 98 79 69 Respiratory 20 16 18 Rate Blood Pressure 116/75 122/80 122/85 O2 Sat by Pulse 100 99 100 Oximetry Medical Decision Making - Medical Decision Making 35-year-old female patient of her abdominal pain ongoing last 3 days. Vital signs are stable, afebrile. Physical exam is mildly tender abdomen. Laboratory investigations are non-impressive. Shared decision making with patient. Discussed risks and benefits of CAT scan and she is requesting to have this exam. CT of the abdomen display cystic area in the posterior liver consistent with a chronic hematoma that a small other old exam. Nonobstructing tiny right renal calculi. No evidence of acute abdomen and pelvis. Patient symptoms are well controlled. She'll be discharged outpatient follow-up and return precautions. Case discussed with Dr. Cai. - Lab Data Result diagrams: 10/14/20 21:29 10/14/20 21:29 Lab Results 10/14/20 10/14/20 10/14/20 Range/Units 21:29 21:29 21:29 WBC 6.3 (3.8-10.6) k/uL RBC 4.68 (3.80-5.40) m/uL Hgb 13.2 (11.4-16.0) gm/dL Hct 39.7 (34.0-46.0) % MCV 84.9 (80.0-100.0) fL MCH 28.3 (25.0-35.0) pg MCHC 33.3 (31.0-37.0) g/dL RDW 15.3 (11.5-15.5) % Plt Count 300 (150-450) k/uL MPV 8.0 Neutrophils % 55 % Lymphocytes % 31 % Monocytes % 6 % Eosinophils % 3 % Basophils % 2 % Neutrophils # 3.5 (1.3-7.7) k/uL Lymphocytes # 2.0 (1.0-4.8) k/uL Monocytes # 0.4 (0-1.0) k/uL Eosinophils # 0.2 (0-0.7) k/uL Basophils # 0.1 (0-0.2) k/uL Sodium (137-145) mmol/L Potassium (3.5-5.1) mmol/L Chloride (98-107) mmol/L Carbon Dioxide (22-30) mmol/L Anion Gap mmol/L BUN (7-17) mg/dL Creatinine (0.52-1.04) mg/dL Est GFR (CKD-EPI)AfAm (>60 ml/min/1.73 sqM) Est GFR (CKD-EPI)NonAf (>60 ml/min/1.73 sqM) Glucose (74-99) mg/dL Plasma Lactic Acid Shaheed (0.7-2.0) mmol/L Calcium (8.4-10.2) mg/dL Total Bilirubin (0.2-1.3) mg/dL AST (14-36) U/L ALT (4-34) U/L Alkaline Phosphatase (38-126) U/L Total Protein (6.3-8.2) g/dL Albumin (3.5-5.0) g/dL Amylase (30-110) U/L Lipase (23-300) U/L Urine Color Yellow Urine Appearance Clear (Clear) Urine pH 6.0 (5.0-8.0) Ur Specific [place] 1.031 (1.001-1.035) Urine Protein Trace H (Negative) Urine Glucose (UA) Negative (Negative) Urine Ketones Trace H (Negative) Urine Blood Moderate H (Negative) Urine Nitrite Negative (Negative) Urine Bilirubin Negative (Negative) Urine Urobilinogen 2.0 (<2.0) mg/dL Ur Leukocyte Esterase Negative (Negative) Urine RBC 7 H (0-5) /hpf Urine WBC 1 (0-5) /hpf Ur Squamous Epith Cells 1 (0-4) /hpf Hyaline Casts 1 (0-2) /lpf Urine Mucus Rare H (None) /hpf Urine HCG, Qual Not Detected (Not Detectd) 10/14/20 10/14/20 Range/Units 21:29 21:29 WBC (3.8-10.6) k/uL RBC (3.80-5.40) m/uL Hgb (11.4-16.0) gm/dL Hct (34.0-46.0) % MCV (80.0-100.0) fL MCH (25.0-35.0) pg MCHC (31.0-37.0) g/dL RDW (11.5-15.5) % Plt Count (150-450) k/uL MPV Neutrophils % % Lymphocytes % % Monocytes % % Eosinophils % % Basophils % % Neutrophils # (1.3-7.7) k/uL Lymphocytes # (1.0-4.8) k/uL Monocytes # (0-1.0) k/uL Eosinophils # (0-0.7) k/uL Basophils # (0-0.2) k/uL Sodium 137 (137-145) mmol/L Potassium 4.1 (3.5-5.1) mmol/L Chloride 106 (98-107) mmol/L Carbon Dioxide 24 (22-30) mmol/L Anion Gap 7 mmol/L BUN 15 (7-17) mg/dL Creatinine 0.80 (0.52-1.04) mg/dL Est GFR (CKD-EPI)AfAm >90 (>60 ml/min/1.73 sqM) Est GFR (CKD-EPI)NonAf >90 (>60 ml/min/1.73 sqM) Glucose 106 H (74-99) mg/dL Plasma Lactic Acid Shaheed 0.9 (0.7-2.0) mmol/L Calcium 9.4 (8.4-10.2) mg/dL Total Bilirubin 0.2 (0.2-1.3) mg/dL AST 18 (14-36) U/L ALT 16 (4-34) U/L Alkaline Phosphatase 49 (38-126) U/L Total Protein 7.2 (6.3-8.2) g/dL Albumin 4.5 (3.5-5.0) g/dL Amylase 55 (30-110) U/L Lipase 91 (23-300) U/L Urine Color Urine Appearance (Clear) Urine pH (5.0-8.0) Ur Specific [place] (1.001-1.035) Urine Protein (Negative) Urine Glucose (UA) (Negative) Urine Ketones (Negative) Urine Blood (Negative) Urine Nitrite (Negative) Urine Bilirubin (Negative) Urine Urobilinogen (<2.0) mg/dL Ur Leukocyte Esterase (Negative) Urine RBC (0-5) /hpf Urine WBC (0-5) /hpf Ur Squamous Epith Cells (0-4) /hpf Hyaline Casts (0-2) /lpf Urine Mucus (None) /hpf Urine HCG, Qual (Not Detectd) Disposition Clinical Impression: Abdominal pain Disposition: HOME SELF-CARE Condition: Stable Instructions (If sedation given, give patient instructions): Abdominal Pain (ED) Additional Instructions: Follow up with PCP tomorrow. Return to ED with any worsening symptoms. Is patient prescribed a controlled substance at d/c from ED?: No Referrals: Joao Stockton MD [Primary Care Provider] - 1-2 days
[2020-10-15 00:13] VITALS: BP 106/62; PULSE 82; TEMP 98.7
== END 2020-10-15 00:13 | disposition home or self-care (01) ==
LOC: EC 21:12
DX: R10.9 Unspecified abdominal pain (principal); R11.2 Nausea with vomiting, unspecified; R19.7 Diarrhea, unspecified; N20.0 Calculus of kidney; F41.9 Anxiety disorder, unspecified; F31.9 Bipolar disorder, unspecified; F17.200 Nicotine dependence, unspecified, uncomplicated; Z79.899 Other long term (current) drug therapy; Z91.040 Latex allergy status; Z88.2 Allergy status to sulfonamides; Z88.8 Allergy status to other drugs, medicaments and biological substances; Z85.41 Personal history of malignant neoplasm of cervix uteri
CPT/HCPCS: 36415; 80053; 82150; 83605; 83690; 85025; 81001; 81025; 74177; 99285; 96374; 96375 ×2; 96361; J2270; J2405; S0119; J1170; Q9967

== ENCOUNTER 2021-01-21 09:07 | Emergency (ER) | payer OTHER ==
[2021-01-21 09:21] VITALS: RESP 18; TEMP 98
[2021-01-21] MEDS ORDERED: SODIUM CHLORIDE 0.9% 1,000 ML IV STA (10:09)
[2021-01-21] MEDS ORDERED: ONDANSETRON 4 MG/2 ML VIAL IVP STA ×3 (10:09→12:59)
[2021-01-21 10:53] LABS: Basophils % (A) 0 %; Eosinophils # (A) 0.2 k/uL (0-0.7); Eosinophils % (A) 1 %; HCT 44.1 % (34.0-46.0); HGB 15.5 gm/dL (11.4-16.0); Lymphocytes % (A) 9 %; MCHC 35.2 g/dL (31.0-37.0); MCV 85.2 fL (80.0-100.0); Mean Platelet Volume 8.5; Monocytes # (A) 0.7 k/uL (0-1.0); Monocytes % (A) 3 %; Neutrophils # (A) 18.2 k/uL (1.3-7.7); Neutrophils % (A) 86 %; Platelet Count 315 k/uL (150-450); RBC 5.17 m/uL (3.80-5.40); RDW 14.3 % (11.5-15.5); WBC 21.2 k/uL (3.8-10.6)
[2021-01-21 11:08] LABS: Appearance,Urine Cloudy (Clear); Bilirubin,Urine 1+ (Negative); Blood,Urine Moderate (Negative); Color,Urine Light Red; Glucose,Urine (UA) Trace (Negative); Ketones,Urine 1+ (Negative); Leukocyte Esterase,Urine Trace (Negative); Mucus,Urine Many /hpf; Nitrite,Urine Negative (Negative); Protein,Urine 4+ (Negative); RBC,Urine 16 /hpf (0-5); Squamous Epithelial Cell,Urine 4 /hpf (0-4); WBC,Urine 6 /hpf (0-5)
[2021-01-21 11:09] LABS: ALT 23 U/L (4-34); AST 25 U/L (14-36); African American GFR (CKD) >90 (>60 ml/min/1.73 sqM); Albumin 5.7 g/dL (3.5-5.0); Alkaline Phosphatase 86 U/L (38-126); Anion Gap 16 mmol/L; Blood Urea Nitrogen 26 mg/dL (7-17); Calcium 11.3 mg/dL (8.4-10.2); Carbon Dioxide 22 mmol/L (22-30); Chloride 99 mmol/L (98-107); Glucose 137 mg/dL (74-99); Lipase 34 U/L (23-300); Non-African American GFR(CKD) 88 (>60 ml/min/1.73 sqM); Sodium 137 mmol/L (137-145); Total Bilirubin 0.6 mg/dL (0.2-1.3); Total Protein 9.3 g/dL (6.3-8.2)
[2021-01-21 11:12] LABS: Specific Gravity,Urine 1.045 (1.001-1.035)
[2021-01-21] MEDS ORDERED: KETOROLAC 15 MG/ML 1 ML VIAL IVP STA (11:34)
[2021-01-21] MEDS ORDERED: METOCLOPRAMIDE 5 MG/ML 2 ML VIAL IVP STA (11:45)
[2021-01-21] MEDS ORDERED: diphenhydrAMINE 50 MG/ML 1 ML VIAL IVP STA (11:45)
--- NOTE | 2021-01-21 12:03 | XR ---
EXAMINATION TYPE: XR chest 1V portable DATE OF EXAM: 01/21/2021 COMPARISON: 01/20/2021 INDICATION: Shortness of breath TECHNIQUE: Single frontal view of the chest is obtained. FINDINGS: The heart size is normal. The pulmonary vasculature is normal. Diffuse increased lung markings are present. Focal consolidations are in the lower lobes. Findings ar e worsening the right lung base IMPRESSION: 1. Diffuse increased lung markings is nonspecific. Pulmonary edema and atypical pneumonia should be c onsidered. Findings are worsening at the right lung base.
[2021-01-21] MEDS ORDERED: HYDROmorphone 0.5 MG/0.5 ML SYRINGE IVP STA (12:49)
--- NOTE | 2021-01-21 12:54 | CT ---
EXAMINATION TYPE: CT abdomen pelvis w con DATE OF EXAM: 01/21/2021 COMPARISON: 10/14/2020 HISTORY: RLQ pain, nausea, vomiting CT DLP: 564.3 mGycm CONTRAST: CT scan of the abdomen and pelvis is performed without Oral Contrast and with IV Contrast, patient in jected with 100 mL of Isovue 300. FINDINGS: LUNG BASES-: No visible nodule. No infiltrate. LIVER/GB: No calcified gallstones. Hypoattenuating lesion posterior segment right hepatic lobe is s maller in size and currently measures 1.2 cm. Biliary tree is of normal caliber. PANCREAS: No inflammation. No distinct mass. SPLEEN: No splenic enlargement. No lesion seen. ADRENALS: No nodule. No thickening. KIDNEYS/BLADDER: No hydronephrosis. No nephrolithiasis. No distinct renal mass. Urinary bladder g rossly unremarkable. BOWEL: Normal appendix. Normal bowel caliber. There is wall thickening of the descending colon which could reflect colitis versus poor distention. Correlate clinically. GENITAL ORGANS: No gross abnormality. LYMPH NODES: No greater than 1cm abdominal or pelvic lymph nodes are appreciated. AORTA: No significant abnormality. OSSEOUS STRUCTURES: No significant abnormality is seen. OTHER: No significant additional abnormality is seen. IMPRESSION: 1. There is wall thickening of the descending colon which could reflect colitis versus poor distentio n. Correlate clinically. 2. Normal appendix
--- NOTE | 2021-01-21 13:49 | ED ---
General Adult HPI - General Source: patient, RN notes reviewed Mode of arrival: ambulatory Limitations: no limitations <Hany Howell - Last Filed: 01/21/21 13:53> <Bala Baird - Last Filed: 01/21/21 15:31> - General Chief complaint: Nausea/Vomiting/Diarrhea Stated complaint: Vomiting Time Seen by Provider: 01/21/21 09:52 - History of Present Illness Initial comments: 35-year-old female with a past medical history of cervical cancer, fibromyalgia presents to the emergency department for a chief complaint of nausea vomiting. Patient reports about 6 hours after she eats her dinner she started to have nausea and vomiting. States she has been unable to keep down fluids over the past few days. Patient states she also has right low back pain as well as abdominal pain. Patient states the pain is constant. Patient denies any fevers. Denies any weakness of the lower extremities. Denies bladder or bowel changes. Denies vaginal bleeding or discharge. Patient has no other complaints at this time including shortness of breath, chest pain, nausea or vomiting, headache, or visual changes. (Hany Howell) - Related Data Home Medications Medication Instructions Recorded Confirmed Gabapentin [Neurontin] 300 mg PO QID 07/30/20 01/21/21 Hydrocodone/Acetaminophen [[place] 1 tab PO TID 07/30/20 01/21/21 7.5-325] ALPRAZolam [Xanax] 0.5 mg PO BID 10/14/20 01/21/21 Bismuth Subsalicylate 524 mg PO QID PRN 01/21/21 01/21/21 [Pepto-Bismol] DULoxetine HCL [Cymbalta] 30 mg PO BID 01/21/21 01/21/21 Previous Rx's Medication Instructions Recorded Azithromycin [Zithromax] 500 mg PO DAILY 5 Days #5 tab 01/21/21 Allergies Allergy/AdvReac Type Severity Reaction Status Date / Time latex Allergy Swelling,itching,skin Verified 01/21/21 10:35 redness methocarbamol [From Robaxin] Allergy Rash/Hives Verified 01/21/21 10:35 Sulfa (Sulfonamide Allergy Anaphylaxis Verified 01/21/21 10:35 Antibiotics) propranolol AdvReac "Diabetic Verified 01/21/21 10:35 Issues" Review of Systems ROS Other: All systems not noted in ROS Statement are negative. <Hany Howell - Last Filed: 01/21/21 13:53> ROS Other: All systems not noted in ROS Statement are negative. <OliBala - Last Filed: 01/21/21 15:31> ROS Statement: Those systems with pertinent positive or pertinent negative responses have been documented in the HPI. Past Medical History Past Medical History: Cancer, Fibromyalgia, Seizure Disorder Additional Past Medical History / Comment(s): hernia, DDD,cervical CA, SEIZURES for approx 6 mos due to a closed head injury (2009), Hx of gestational diabe juventino., frequent constipation., hernia., States poor vision right eye, liver laceration History of Any Multi-Drug Resistant Organisms: None Reported Past Surgical History: Adenoidectomy, Section, Hernia Repair, Orthopedic Surgery, Tonsillectomy, Tubal Ligation Additional Past Surgical History / Comment(s): cyst removed rt labia, x2, cervical surgery "freezing & scrapping" for cancer. Past Anesthesia/Blood Transfusion Reactions: No Reported Reaction, Motion Sickness Additional Past Anesthesia/Blood Transfusion Reaction / Comment(s): states "grandmother has hx fungal meningitis r/t ear infection/ran high fever with ear surgery-pt not sure if fever r/t meningitis or anesthesia. Past Psychological History: Anxiety, Bipolar, Depression Smoking Status: Current every day smoker Past Alcohol Use History: None Reported Past Drug Use History: Marijuana - Past Family History Mother Family Medical History: Cancer Additional Family Medical History / Comment(s): cervical <Hany Howell P - Last Filed: 01/21/21 13:53> General Exam Limitations: no limitations General appearance: alert, in no apparent distress Head exam: Present: atraumatic, normocephalic, normal inspection Eye exam: Present: normal appearance, PERRL, EOMI. Absent: scleral icterus, conjunctival injection, periorbital swelling ENT exam: Present: normal exam, mucous membranes moist Neck exam: Present: normal inspection, full ROM. Absent: tenderness, meningismus, lymphadenopathy Respiratory exam: Present: normal lung sounds bilaterally. Absent: respiratory distress, wheezes, rales, rhonchi, stridor Cardiovascular Exam: Present: regular rate, normal rhythm, normal heart sounds. Absent: systolic murmur, diastolic murmur, rubs, gallop, clicks GI/Abdominal exam: Present: soft, normal bowel sounds. Absent: distended, tenderness, guarding, rebound, rigid External exam: Present: normal external exam. Absent: erythema, swelling, lesions, lacerations, ecchymosis, other Speculum exam: Present: normal speculum exam. Absent: erythema, vaginal discharge, cervical discharge, vaginal bleeding, foreign body, tissue, laceration By manual exam: Present: normal by manual exam, uterine tenderness (minimal). Absent: cervical motion tenderness, adnexal tenderness, adnexal mass, uterine enlargement Back exam: Present: paraspinal tenderness (R paraspinal tenderness, no midline tenderness). Absent: CVA tenderness (R), CVA tenderness (L) <Hany Howell - Last Filed: 01/21/21 13:53> Course Vital Signs 01/21/21 01/21/21 09:17 15:23 Temperature 98.0 F 98.0 F Pulse Rate 83 67 Respiratory 18 18 Rate Blood Pressure 142/90 126/66 O2 Sat by Pulse 97 99 Oximetry Medical Decision Making - Lab Data Result diagrams: 01/21/21 10:28 01/21/21 10:28 <Hany Howell - Last Filed: 01/21/21 13:53> - Lab Data Result diagrams: 01/21/21 10:28 01/21/21 10:28 <Bala Baird - Last Filed: 01/21/21 15:31> - Medical Decision Making Vitals are stable. HPI is documented. Physical exam does reveal mild right- sided lower back tenderness as well as mild generalized abdominal tenderness. CBC does show leukocytosis, likely reactive to vomiting. CMP shows evidence of dehydration, patient given a liter of fluids. Urinalysis did not show any obvious evidence of infection. Coronavirus not detected. Chest x-ray did show diffuse increased lung markings. Pulmonary edema and atypical pneumonia should be considered. Patient did have a low-grade fever of 100.5 in the ER. May have an early coronavirus developing. She does report that her daughter is in quarantine for this. CT abdomen and pelvis does show all thickening of the descending colon which could reflect colitis versus for distention. Correlate clinically. Normal appendix. (Hany Howell) Patient was reevaluated. Patient was seen up walking the halls. She complains of new back pain with fevers however exam is inconsistent. ESR and CRP are negative. I do not feel this time the patient is presenting with any type of vertebral rest of myelitis or discitis. Going send the patient home with azithromycin for her chest x-ray. Told to quarantine herself as per negative cold it might be a false-negative because it so early in the course. Have it rechecked in a few days. Return emergency Department for any worsening or changing symptoms. The patient has pain medication at home that she can take for pain. (Bala Baird) - Lab Data Lab Results 01/21/21 01/21/21 01/21/21 Range/Units 10:25 10:28 10:28 WBC 21.2 H (3.8-10.6) k/uL RBC 5.17 (3.80-5.40) m/uL Hgb 15.5 (11.4-16.0) gm/dL Hct 44.1 (34.0-46.0) % MCV 85.2 (80.0-100.0) fL MCH 30.0 (25.0-35.0) pg MCHC 35.2 (31.0-37.0) g/dL RDW 14.3 (11.5-15.5) % Plt Count 315 (150-450) k/uL MPV 8.5 Neutrophils % 86 % Lymphocytes % 9 % Monocytes % 3 % Eosinophils % 1 % Basophils % 0 % Neutrophils # 18.2 H (1.3-7.7) k/uL Lymphocytes # 2.0 (1.0-4.8) k/uL Monocytes # 0.7 (0-1.0) k/uL Eosinophils # 0.2 (0-0.7) k/uL Basophils # 0.0 (0-0.2) k/uL ESR (0-20) mm/hr Sodium (137-145) mmol/L Potassium (3.5-5.1) mmol/L Chloride (98-107) mmol/L Carbon Dioxide (22-30) mmol/L Anion Gap mmol/L BUN (7-17) mg/dL Creatinine (0.52-1.04) mg/dL Est GFR (CKD-EPI)AfAm (>60 ml/min/1.73 sqM) Est GFR (CKD-EPI)NonAf (>60 ml/min/1.73 sqM) Glucose (74-99) mg/dL Plasma Lactic Acid Shaheed 1.8 (0.7-2.0) mmol/L Calcium (8.4-10.2) mg/dL Total Bilirubin (0.2-1.3) mg/dL AST (14-36) U/L ALT (4-34) U/L Alkaline Phosphatase (38-126) U/L C-Reactive Protein (<10.0) mg/L Total Protein (6.3-8.2) g/dL Albumin (3.5-5.0) g/dL Lipase (23-300) U/L Urine Color Light Red Urine Appearance Cloudy H (Clear) Urine pH 6.0 (5.0-8.0) Ur Specific [place] 1.045 H (1.001-1.035) Urine Protein 4+ H (Negative) Urine Glucose (UA) Trace H (Negative) Urine Ketones 1+ H (Negative) Urine Blood Moderate H (Negative) Urine Nitrite Negative (Negative) Urine Bilirubin 1+ H (Negative) Urine Urobilinogen 4.0 (<2.0) mg/dL Ur Leukocyte Esterase Trace H (Negative) Urine RBC 16 H (0-5) /hpf Urine WBC 6 H (0-5) /hpf Ur Squamous Epith Cells 4 (0-4) /hpf Urine Mucus Many H (None) /hpf Urine HCG, Qual (Not Detectd) Coronavirus (PCR) (Not Detectd) Trichomonas Ag (Rapid) (Negative) 01/21/21 01/21/21 01/21/21 Range/Units 10:28 10:28 10:47 WBC (3.8-10.6) k/uL RBC (3.80-5.40) m/uL Hgb (11.4-16.0) gm/dL Hct (34.0-46.0) % MCV (80.0-100.0) fL MCH (25.0-35.0) pg MCHC (31.0-37.0) g/dL RDW (11.5-15.5) % Plt Count (150-450) k/uL MPV Neutrophils % % Lymphocytes % % Monocytes % % Eosinophils % % Basophils % % Neutrophils # (1.3-7.7) k/uL Lymphocytes # (1.0-4.8) k/uL Monocytes # (0-1.0) k/uL Eosinophils # (0-0.7) k/uL Basophils # (0-0.2) k/uL ESR (0-20) mm/hr Sodium 137 (137-145) mmol/L Potassium 4.0 (3.5-5.1) mmol/L Chloride 99 (98-107) mmol/L Carbon Dioxide 22 (22-30) mmol/L Anion Gap 16 mmol/L BUN 26 H (7-17) mg/dL Creatinine 0.87 (0.52-1.04) mg/dL Est GFR (CKD-EPI)AfAm >90 (>60 ml/min/1.73 sqM) Est GFR (CKD-EPI)NonAf 88 (>60 ml/min/1.73 sqM) Glucose 137 H (74-99) mg/dL Plasma Lactic Acid Shaheed (0.7-2.0) mmol/L Calcium 11.3 H (8.4-10.2) mg/dL Total Bilirubin 0.6 (0.2-1.3) mg/dL AST 25 (14-36) U/L ALT 23 (4-34) U/L Alkaline Phosphatase 86 (38-126) U/L C-Reactive Protein (<10.0) mg/L Total Protein 9.3 H (6.3-8.2) g/dL Albumin 5.7 H (3.5-5.0) g/dL Lipase 34 (23-300) U/L Urine Color Urine Appearance (Clear) Urine pH (5.0-8.0) Ur Specific [place] (1.001-1.035) Urine Protein (Negative) Urine Glucose (UA) (Negative) Urine Ketones (Negative) Urine Blood (Negative) Urine Nitrite (Negative) Urine Bilirubin (Negative) Urine Urobilinogen (<2.0) mg/dL Ur Leukocyte Esterase (Negative) Urine RBC (0-5) /hpf Urine WBC (0-5) /hpf Ur Squamous Epith Cells (0-4) /hpf Urine Mucus (None) /hpf Urine HCG, Qual Not Detected (Not Detectd) Coronavirus (PCR) Not Detected (Not Detectd) Trichomonas Ag (Rapid) (Negative) 01/21/21 01/21/21 01/21/21 Range/Units 13:55 14:27 14:27 WBC (3.8-10.6) k/uL RBC (3.80-5.40) m/uL Hgb (11.4-16.0) gm/dL Hct (34.0-46.0) % MCV (80.0-100.0) fL MCH (25.0-35.0) pg MCHC (31.0-37.0) g/dL RDW (11.5-15.5) % Plt Count (150-450) k/uL MPV Neutrophils % % Lymphocytes % % Monocytes % % Eosinophils % % Basophils % % Neutrophils # (1.3-7.7) k/uL Lymphocytes # (1.0-4.8) k/uL Monocytes # (0-1.0) k/uL Eosinophils # (0-0.7) k/uL Basophils # (0-0.2) k/uL ESR 2 (0-20) mm/hr Sodium (137-145) mmol/L Potassium (3.5-5.1) mmol/L Chloride (98-107) mmol/L Carbon Dioxide (22-30) mmol/L Anion Gap mmol/L BUN (7-17) mg/dL Creatinine (0.52-1.04) mg/dL Est GFR (CKD-EPI)AfAm (>60 ml/min/1.73 sqM) Est GFR (CKD-EPI)NonAf (>60 ml/min/1.73 sqM) Glucose (74-99) mg/dL Plasma Lactic Acid Shaheed (0.7-2.0) mmol/L Calcium (8.4-10.2) mg/dL Total Bilirubin (0.2-1.3) mg/dL AST (14-36) U/L ALT (4-34) U/L Alkaline Phosphatase (38-126) U/L C-Reactive Protein 7.0 (<10.0) mg/L Total Protein (6.3-8.2) g/dL Albumin (3.5-5.0) g/dL Lipase (23-300) U/L Urine Color Urine Appearance (Clear) Urine pH (5.0-8.0) Ur Specific [place] (1.001-1.035) Urine Protein (Negative) Urine Glucose (UA) (Negative) Urine Ketones (Negative) Urine Blood (Negative) Urine Nitrite (Negative) Urine Bilirubin (Negative) Urine Urobilinogen (<2.0) mg/dL Ur Leukocyte Esterase (Negative) Urine RBC (0-5) /hpf Urine WBC (0-5) /hpf Ur Squamous Epith Cells (0-4) /hpf Urine Mucus (None) /hpf Urine HCG, Qual (Not Detectd) Coronavirus (PCR) (Not Detectd) Trichomonas Ag (Rapid) Negative (Negative) Disposition <Hany Howell - Last Filed: 01/21/21 13:53> Is patient prescribed a controlled substance at d/c from ED?: No <Bala Baird - Last Filed: 01/21/21 15:31> Clinical Impression: Viral syndrome, Atypical pneumonia Disposition: HOME SELF-CARE Condition: Stable Instructions (If sedation given, give patient instructions): Acute Nausea and Vomiting (ED) Prescriptions: Azithromycin [Zithromax] 500 mg PO DAILY 5 Days #5 tab Referrals: Joao Stockton MD [Primary Care Provider] - 1-2 days
[2021-01-21] MEDS ORDERED: oxyCODONE-APAP 5-325MG 1 EACH TAB PO STA (15:21)
[2021-01-21 15:30] VITALS: BP 126/66; PULSE 67
== END 2021-01-21 15:35 | disposition home or self-care (01) ==
LOC: EC 09:07
DX: B34.9 Viral infection, unspecified (principal); J18.9 Pneumonia, unspecified organism; M54.5 Low back pain; R10.9 Unspecified abdominal pain; F41.9 Anxiety disorder, unspecified; F31.9 Bipolar disorder, unspecified; M79.7 Fibromyalgia; G40.909 Epilepsy, unspecified, not intractable, without status epilepticus; Z20.822 Contact with and (suspected) exposure to COVID-19; Z79.899 Other long term (current) drug therapy; F17.200 Nicotine dependence, unspecified, uncomplicated; Z88.2 Allergy status to sulfonamides; Z88.8 Allergy status to other drugs, medicaments and biological substances; Z91.040 Latex allergy status; Z90.89 Acquired absence of other organs; Z98.51 Tubal ligation status; Z85.41 Personal history of malignant neoplasm of cervix uteri; Z80.49 Family history of malignant neoplasm of other genital organs
CPT/HCPCS: 36415; 80053; 85652; 83605; 83690; 85025; 86140; 81001; 81025; 87808; 87491; 87591; 87635; 71045; 74177; 99284; 96374; 96375 ×4; 96376; 96361; J1200; J2765; J2405; J1885; J1170; Q9967

== ENCOUNTER 2021-02-18 15:47 | Emergency (ER) | payer OTHER ==
[2021-02-18 15:51] VITALS: TEMP 98
[2021-02-18] MEDS ORDERED: KETOROLAC 15 MG/ML 1 ML VIAL IVP STA (16:29)
[2021-02-18] MEDS ORDERED: SODIUM CHLORIDE 0.9% 2,000 ML IV STA (16:29)
[2021-02-18] MEDS ORDERED: ONDANSETRON 4 MG/2 ML VIAL IVP STA (16:29)
--- NOTE | 2021-02-18 16:42 | ED ---
General Adult HPI - General Chief complaint: Abdominal Pain Stated complaint: vomiting/back pain Time Seen by Provider: 02/18/21 15:57 Source: patient, RN notes reviewed Mode of arrival: ambulatory Limitations: no limitations - History of Present Illness Initial comments: 35-year-old female with a past medical history of fibromyalgia, hernia, cervical cancer, presents to the emergency room for right-sided low back pain. Patient states the pain is severe. She says that ongoing for 2 days. She has also had nausea vomiting associated with this. Denies fevers or chills. States it does radiate around to her abdomen. Patient states she has had this before and follow as a kidney infection. Patient does also admit to diarrhea. Denies melena or hematochezia. Patient has no other complaints at this time including shortness of breath, chest pain, abdominal pain, headache, or visual changes. - Related Data Home Medications Medication Instructions Recorded Confirmed Gabapentin [Neurontin] 300 mg PO TID 07/30/20 02/18/21 Hydrocodone/Acetaminophen [[place] 1 tab PO TID 07/30/20 02/18/21 7.5-325] ALPRAZolam [Xanax] 0.5 mg PO BID 10/14/20 02/18/21 DULoxetine HCL [Cymbalta] 30 mg PO BID 01/21/21 02/18/21 Previous Rx's Medication Instructions Recorded Amoxicillin/Potassium Clav 1 tab PO Q12HR #20 tab 02/18/21 [Augmentin 875-125 Tablet] Allergies Allergy/AdvReac Type Severity Reaction Status Date / Time latex Allergy Swelling,itching,skin Verified 02/18/21 16:33 redness methocarbamol [From Robaxin] Allergy Rash/Hives Verified 02/18/21 16:33 Sulfa (Sulfonamide Allergy Anaphylaxis Verified 02/18/21 16:33 Antibiotics) propranolol AdvReac "Diabetic Verified 02/18/21 16:33 Issues" Review of Systems ROS Statement: Those systems with pertinent positive or pertinent negative responses have been documented in the HPI. ROS Other: All systems not noted in ROS Statement are negative. Past Medical History Past Medical History: Cancer, Fibromyalgia, Seizure Disorder Additional Past Medical History / Comment(s): hernia, DDD,cervical CA, SEIZURES for approx 6 mos due to a closed head injury (2009), Hx of gestational diabetes., frequent constipation., hernia., States poor vision right eye, liver laceration History of Any Multi-Drug Resistant Organisms: None Reported Past Surgical History: Adenoidectomy, Section, Hernia Repair, Orthopedic Surgery, Tonsillectomy, Tubal Ligation Additional Past Surgical History / Comment(s): cyst removed rt labia, x2, cervical surgery "freezing & scrapping" for cancer. Past Anesthesia/Blood Transfusion Reactions: No Reported Reaction, Motion Sickness Additional Past Anesthesia/Blood Transfusion Reaction / Comment(s): states "grandmother has hx fungal meningitis r/t ear infection/ran high fever with ear surgery-pt not sure if fever r/t meningitis or anesthesia. Past Psychological History: Anxiety, Bipolar, Depression Smoking Status: Current every day smoker Past Alcohol Use History: None Reported Past Drug Use History: Marijuana - Past Family History Mother Family Medical History: Cancer Additional Family Medical History / Comment(s): cervical General Exam Limitations: no limitations General appearance: alert, in no apparent distress Head exam: Present: atraumatic, normocephalic, normal inspection Eye exam: Present: normal appearance, PERRL, EOMI. Absent: scleral icterus, conjunctival injection, periorbital swelling ENT exam: Present: normal exam, mucous membranes moist Neck exam: Present: normal inspection, full ROM. Absent: tenderness, meningismus, lymphadenopathy Respiratory exam: Present: normal lung sounds bilaterally. Absent: respiratory distress, wheezes, rales, rhonchi, stridor Cardiovascular Exam: Present: regular rate, normal rhythm, normal heart sounds. Absent: systolic murmur, diastolic murmur, rubs, gallop, clicks GI/Abdominal exam: Present: soft, normal bowel sounds. Absent: distended, tenderness, guarding, rebound, rigid Back exam: Present: CVA tenderness (R) Course Vital Signs 02/18/21 02/18/21 15:48 18:14 Temperature 98.0 F Pulse Rate 66 70 Respiratory 20 16 Rate Blood Pressure 151/79 136/86 O2 Sat by Pulse 100 100 Oximetry Medical Decision Making - Medical Decision Making Vitals are stable. CBC CMP unremarkable. Urinalysis does show 25 red cells and 4 white cells with rare. Patient reports she is not on her period. CT abdomen and pelvis does show interval subtle mild bibasilar patchy opacities concerning for atypical pneumonia, exclude Covid pneumonia. Otherwise no acute abnormality. There is a nonobstructing right renal calculus. Patient will be treated with Augmentin as this will cover for possible urinary tract infection as well as pneumonia given COVID was negative. Patient will follow up with her doctor. She'll return here for any worsening symptoms. - Lab Data Result diagrams: 02/18/21 16:33 02/18/21 16:33 Lab Results 02/18/21 02/18/21 02/18/21 Range/Units 16:33 16:33 16:33 WBC 14.3 H (3.8-10.6) k/uL RBC 5.04 (3.80-5.40) m/uL Hgb 15.0 (11.4-16.0) gm/dL Hct 43.9 (34.0-46.0) % MCV 87.0 (80.0-100.0) fL MCH 29.8 (25.0-35.0) pg MCHC 34.3 (31.0-37.0) g/dL RDW 14.9 (11.5-15.5) % Plt Count 293 (150-450) k/uL MPV 8.1 Neutrophils % 84 % Lymphocytes % 11 % Monocytes % 4 % Eosinophils % 1 % Basophils % 0 % Neutrophils # 12.0 H (1.3-7.7) k/uL Lymphocytes # 1.5 (1.0-4.8) k/uL Monocytes # 0.5 (0-1.0) k/uL Eosinophils # 0.1 (0-0.7) k/uL Basophils # 0.0 (0-0.2) k/uL Sodium (137-145) mmol/L Potassium (3.5-5.1) mmol/L Chloride (98-107) mmol/L Carbon Dioxide (22-30) mmol/L Anion Gap mmol/L BUN (7-17) mg/dL Creatinine (0.52-1.04) mg/dL Est GFR (CKD-EPI)AfAm (>60 ml/min/1.73 sqM) Est GFR (CKD-EPI)NonAf (>60 ml/min/1.73 sqM) Glucose (74-99) mg/dL Plasma Lactic Acid Shaheed (0.7-2.0) mmol/L Calcium (8.4-10.2) mg/dL Total Bilirubin (0.2-1.3) mg/dL AST (14-36) U/L ALT (4-34) U/L Alkaline Phosphatase (38-126) U/L Total Protein (6.3-8.2) g/dL Albumin (3.5-5.0) g/dL Amylase (30-110) U/L Lipase (23-300) U/L Urine Color Yellow Urine Appearance Cloudy H (Clear) Urine pH 6.5 (5.0-8.0) Ur Specific [place] 1.035 (1.001-1.035) Urine Protein 3+ H (Negative) Urine Glucose (UA) Negative (Negative) Urine Ketones 1+ H (Negative) Urine Blood Small H (Negative) Urine Nitrite Negative (Negative) Urine Bilirubin Negative (Negative) Urine Urobilinogen 2.0 (<2.0) mg/dL Ur Leukocyte Esterase Negative (Negative) Urine RBC 25 H (0-5) /hpf Urine WBC 4 (0-5) /hpf Ur Squamous Epith Cells 5 H (0-4) /hpf Urine Bacteria Rare H (None) /hpf Urine Mucus Many H (None) /hpf Urine HCG, Qual Not Detected (Not Detectd) Influenza Type A (PCR) (Not Detectd) Influenza Type B (PCR) (Not Detectd) RSV (PCR) (Not Detectd) SARS-CoV-2 (PCR) (Not Detectd) 02/18/21 02/18/21 02/18/21 Range/Units 16:33 16:33 17:20 WBC (3.8-10.6) k/uL RBC (3.80-5.40) m/uL Hgb (11.4-16.0) gm/dL Hct (34.0-46.0) % MCV (80.0-100.0) fL MCH (25.0-35.0) pg MCHC (31.0-37.0) g/dL RDW (11.5-15.5) % Plt Count (150-450) k/uL MPV Neutrophils % % Lymphocytes % % Monocytes % % Eosinophils % % Basophils % % Neutrophils # (1.3-7.7) k/uL Lymphocytes # (1.0-4.8) k/uL Monocytes # (0-1.0) k/uL Eosinophils # (0-0.7) k/uL Basophils # (0-0.2) k/uL Sodium 139 (137-145) mmol/L Potassium 4.8 (3.5-5.1) mmol/L Chloride 101 (98-107) mmol/L Carbon Dioxide 24 (22-30) mmol/L Anion Gap 14 mmol/L BUN 17 (7-17) mg/dL Creatinine 0.57 (0.52-1.04) mg/dL Est GFR (CKD-EPI)AfAm >90 (>60 ml/min/1.73 sqM) Est GFR (CKD-EPI)NonAf >90 (>60 ml/min/1.73 sqM) Glucose 125 H (74-99) mg/dL Plasma Lactic Acid Shaheed 1.5 (0.7-2.0) mmol/L Calcium 10.3 H (8.4-10.2) mg/dL Total Bilirubin 0.6 (0.2-1.3) mg/dL AST 22 (14-36) U/L ALT 13 (4-34) U/L Alkaline Phosphatase 67 (38-126) U/L Total Protein 8.3 H (6.3-8.2) g/dL Albumin 5.2 H (3.5-5.0) g/dL Amylase 46 (30-110) U/L Lipase 44 (23-300) U/L Urine Color Urine Appearance (Clear) Urine pH (5.0-8.0) Ur Specific [place] (1.001-1.035) Urine Protein (Negative) Urine Glucose (UA) (Negative) Urine Ketones (Negative) Urine Blood (Negative) Urine Nitrite (Negative) Urine Bilirubin (Negative) Urine Urobilinogen (<2.0) mg/dL Ur Leukocyte Esterase (Negative) Urine RBC (0-5) /hpf Urine WBC (0-5) /hpf Ur Squamous Epith Cells (0-4) /hpf Urine Bacteria (None) /hpf Urine Mucus (None) /hpf Urine HCG, Qual (Not Detectd) Influenza Type A (PCR) Not Detected (Not Detectd) Influenza Type B (PCR) Not Detected (Not Detectd) RSV (PCR) Not Detected (Not Detectd) SARS-CoV-2 (PCR) Not Detected (Not Detectd) Disposition Clinical Impression: Pneumonia, Flank pain Disposition: HOME SELF-CARE Condition: Good Instructions (If sedation given, give patient instructions): Flank Pain (ED), Pneumonia (ED) Additional Instructions: Please take antibiotic as directed. Follow-up with your doctor. Return to the emergency room for any worsening symptoms. Prescriptions: Amoxicillin/Potassium Clav [Augmentin 875-125 Tablet] 1 tab PO Q12HR #20 tab Is patient prescribed a controlled substance at d/c from ED?: No Referrals: Joao Stockton MD [Primary Care Provider] - 1-2 days Time of Disposition: 18:40
[2021-02-18 16:51] LABS: Basophils % (A) 0 %; Eosinophils # (A) 0.1 k/uL (0-0.7); Eosinophils % (A) 1 %; HCT 43.9 % (34.0-46.0); Lymphocytes # (A) 1.5 k/uL (1.0-4.8); Lymphocytes % (A) 11 %; MCH 29.8 pg (25.0-35.0); MCHC 34.3 g/dL (31.0-37.0); Mean Platelet Volume 8.1; Monocytes # (A) 0.5 k/uL (0-1.0); Monocytes % (A) 4 %; Neutrophils % (A) 84 %; Platelet Count 293 k/uL (150-450); RBC 5.04 m/uL (3.80-5.40); RDW 14.9 % (11.5-15.5); WBC 14.3 k/uL (3.8-10.6)
[2021-02-18 17:11] LABS: ALT 13 U/L (4-34); AST 22 U/L (14-36); African American GFR (CKD) >90 (>60 ml/min/1.73 sqM); Albumin 5.2 g/dL (3.5-5.0); Alkaline Phosphatase 67 U/L (38-126); Amylase 46 U/L (30-110); Anion Gap 14 mmol/L; Blood Urea Nitrogen 17 mg/dL (7-17); Calcium 10.3 mg/dL (8.4-10.2); Carbon Dioxide 24 mmol/L (22-30); Chloride 101 mmol/L (98-107); Glucose 125 mg/dL (74-99); Lipase 44 U/L (23-300); Non-African American GFR(CKD) >90 (>60 ml/min/1.73 sqM); Potassium 4.8 mmol/L (3.5-5.1); Sodium 139 mmol/L (137-145); Total Bilirubin 0.6 mg/dL (0.2-1.3); Total Protein 8.3 g/dL (6.3-8.2)
[2021-02-18 17:12] LABS: Appearance,Urine Cloudy (Clear); Bacteria,Urine Rare /hpf; Bilirubin,Urine Negative (Negative); Blood,Urine Small (Negative); Color,Urine Yellow; Glucose,Urine (UA) Negative (Negative); Ketones,Urine 1+ (Negative); Leukocyte Esterase,Urine Negative (Negative); Mucus,Urine Many /hpf; Nitrite,Urine Negative (Negative); PH, Urine 6.5 (5.0-8.0); Protein,Urine 3+ (Negative); RBC,Urine 25 /hpf (0-5); Specific Gravity,Urine 1.035 (1.001-1.035); Squamous Epithelial Cell,Urine 5 /hpf (0-4); WBC,Urine 4 /hpf (0-5)
--- NOTE | 2021-02-18 17:12 | CT ---
EXAMINATION TYPE: CT abdomen pelvis wo con DATE OF EXAM: 02/18/2021 COMPARISON: 01/21/2021. HISTORY: Vomiting and back pain x2 days. CT DLP: 363 mGycm Automated exposure control for dose reduction was used. TECHNIQUE: Helical acquisition of images was performed from the lung bases through the pelvis. FINDINGS: LUNG BASES: Interval subtle mild patchy peripheral based opacities in the bilateral lower lobes. LIVER/GB: No significant abnormality is appreciated. PANCREAS: No significant abnormality is seen. SPLEEN: No significant abnormality is seen. ADRENALS: No significant abnormality is seen. KIDNEYS: 2 mm nonobstructing right renal calculus. No bilateral hydronephrosis or left nephrolithiasi s. FREE AIR: No free air is visualized RETROPERITONEAL ADENOPATHY: None visualized REPRODUCTIVE ORGANS: No significant abnormality is seen URINARY BLADDER: No significant abnormality is seen. PELVIC ADENOPATHY: None visualized. OSSEOUS STRUCTURES: No significant abnormality is seen. BOWEL: No significant abnormality is seen. Normal appendix. OTHER: None IMPRESSION: INTERVAL SUBTLE MILD BIBASILAR PATCHY OPACITIES, CONCERNING FOR ATYPICAL PNEUMONIA TO INCLUDE COVID P NEUMONIA. OTHERWISE NO ACUTE ABNORMALITY OF THE ABDOMEN/PELVIS. Nonobstructing right renal calculus.
[2021-02-18] MEDS ORDERED: HYDROmorphone 0.5 MG/0.5 ML SYRINGE IVP STA (17:22)
[2021-02-18 18:16] VITALS: BP 136/86; PULSE 70; RESP 16
[2021-02-18] MEDS ORDERED: cefTRIAXone IN SWFI 1,000 MG/10 ML SYRINGE IVP STA (18:41)
== END 2021-02-18 19:06 | disposition home or self-care (01) ==
LOC: EC 15:47
DX: J18.9 Pneumonia, unspecified organism (principal); R10.9 Unspecified abdominal pain; F17.200 Nicotine dependence, unspecified, uncomplicated; F32.9 Major depressive disorder, single episode, unspecified; F12.90 Cannabis use, unspecified, uncomplicated; G40.909 Epilepsy, unspecified, not intractable, without status epilepticus; M79.7 Fibromyalgia; Z85.41 Personal history of malignant neoplasm of cervix uteri; Z90.09 Acquired absence of other part of head and neck; Z98.51 Tubal ligation status
CPT/HCPCS: 36415; 80053; 82150; 83605; 83690; 85025; 81001; 81025; 87636; 74176; 99284; 96374; 96375 ×3; 96361 ×2; J2405; J0696; J1885; J1170

== ENCOUNTER → 2021-03-25 | Outpatient (CLI) | payer OTHER ==
--- NOTE | 2021-03-25 15:50 | NM ---
EXAMINATION TYPE: NM hepatobiliary w EF DATE OF EXAM: 03/25/2021 COMPARISON: NONE INDICATION: Right upper quadrant pain TECHNIQUE: After the intravenous administration of 5.0 mCi Tc 99m Mebrofenin hepatobiliary scintigrap hy is performed. Images were obtained immediately post injection. FINDINGS: There is prompt uptake and excretion of radiotracer by the liver. Extrahepatic ducts are identified at 5 minutes. The gallbladder is visualized within 5 minutes. At one hour 8 ounces of oral ensure plus is given to mimic CCK and gallbladder ejection fraction is c alculated at 47 %, which is in the normal range. (Normal >35% and <80%.). IMPRESSION: 1. Normal hepatobiliary scan
== END | disposition home or self-care (01) ==
LOC: RADNMMAIN 13:04
PROVIDERS: ATTEND Surgery
DX: R10.11 Right upper quadrant pain (principal)
CPT/HCPCS: 78226; A9537

== ENCOUNTER 2021-04-03 10:08 | Day surgery (SDC) | payer OTHER ==
[2021-04-01 15:29] VITALS: BMI 20.9
[~2021-04-03 10:08] MED LIST changes: +LACTATED RINGERS 1,000 ML IV SCH; +LIDOCAINE 1% (10MG/ML) FOR IV START INTRADERMA PRN; -ceFAZolin IN SWFI 2 GM/20 ML SYRINGE IVP ONE
[2021-04-03 10:52] VITALS: TEMP 98.1
[2021-04-03] MEDS ORDERED: GLYCOPYRROLATE 0.2 MG/ML 2 ML VIAL ONE (11:20)
[2021-04-03] MEDS ORDERED: PROPOFOL 10 MG/ML 20 ML VIAL IV ONE (11:20)
[2021-04-03] MEDS ORDERED: LIDOCAINE 1% INJ 10MG/ML (20 ML MDV) ONE (11:20)
--- NOTE | 2021-04-03 11:24 | P.GSHP ---
History of Present Illness H&P Date: 04/03/21 Chief Complaint: GERD GI bleed This a 32-year-old female presents today for EGD and colonoscopy. She's had issues with GERD and GI bleed. Past Medical History Past Medical History: Cancer, Fibromyalgia, Seizure Disorder Additional Past Medical History / Comment(s): hernia, DDD,cervical CA, SEIZURES for approx 6 mos due to a closed head injury (2009), Hx of gestational diabetes., frequent constipation., hernia., States poor vision right eye, liver laceration, KIDNEY STONE, History of Any Multi-Drug Resistant Organisms: None Reported Past Surgical History: Adenoidectomy, Section, Hernia Repair, Orthopedic Surgery, Tonsillectomy, Tubal Ligation Additional Past Surgical History / Comment(s): cyst removed rt labia, x2, cervical surgery "freezing & scrapping" for cancer. Past Anesthesia/Blood Transfusion Reactions: No Reported Reaction, Motion Sickness Additional Past Anesthesia/Blood Transfusion Reaction / Comment(s): states "grandmother has hx fungal meningitis r/t ear infection/ran high fever with ear surgery-pt not sure if fever r/t meningitis or anesthesia. Smoking Status: Current every day smoker - Past Family History Mother Family Medical History: Cancer Additional Family Medical History / Comment(s): cervical Medications and Allergies Home Medications Medication Instructions Recorded Confirmed Type Gabapentin [Neurontin] 300 mg PO TID 07/30/20 04/01/21 History Hydrocodone/Acetaminophen [[place] 1 tab PO TID 07/30/20 04/01/21 History 7.5-325] ALPRAZolam [Xanax] 0.5 mg PO BID 10/14/20 04/01/21 History DULoxetine HCL [Cymbalta] 30 mg PO BID 01/21/21 04/01/21 History Allergies Allergy/AdvReac Type Severity Reaction Status Date / Time latex Allergy Swelling,itching,skin Verified 04/03/21 10:35 redness methocarbamol [From Robaxin] Allergy Rash/Hives Verified 04/03/21 10:35 Sulfa (Sulfonamide Allergy Anaphylaxis Verified 04/03/21 10:35 Antibiotics) propranolol AdvReac "Diabetic Verified 04/03/21 10:35 Issues" Surgical - Exam Vital Signs Temp Pulse Resp BP Pulse Ox 98.1 F 61 16 139/87 100 04/03/21 10:51 04/03/21 10:51 04/03/21 10:51 04/03/21 10:51 04/03/21 10:51 - General well developed, well nourished, no distress - Eyes PERRL - ENT normal pinna - Neck no masses - Respiratory normal expansion - Cardiovascular Rhythm: regular - Abdomen Abdomen: soft, non tender Assessment and Plan Assessment: GERD, GI bleed, we'll perform EGD and colonoscopy
--- NOTE | 2021-04-03 11:38 | P.OP ---
Date of Procedure: 04/03/21 Preoperative Diagnosis: GERD GI bleed Postoperative Diagnosis: Antral gastritis Esophagitis Normal colon Procedure(s) Performed: EGD Colonoscopy Anesthesia: MAC Surgeon: Bunny Nur Pathology: other (Antrum, esophagus) Condition: stable Disposition: PACU Description of Procedure: Patient's placed on the endoscopy table in the lateral position. She received IV sedation. The gastro-/oropharynx passed in the esophagus and stomach. Scope was placed through the pylorus. The first and second portion of the duodenum appeared normal. Scope was then brought back the antrum this is mildly inflamed. A biopsies performed. The scope was unretroflexed and remainder stomach appeared normal. There was a small hiatal hernia. The GE junction was at 40 cm. The distal esophagus appeared mildly inflamed a biopsies performed. The proximal esophagus appeared normal. Scope was withdrawn for patient. Next digital rectal exam was performed which revealed no abnormalities. Flexible scope was then placed patient anus passed throughout the entire colon. The ileocecal valve was visualized. The cecum, ascending and transverse colon appeared normal. The descending and sigmoid colon appeared normal. Scope was brought back the rectum and this appeared normal. Scope was back from patient.
[2021-04-03 12:04] VITALS: RESP 16
[2021-04-03 12:17] VITALS: BP 127/84; PULSE 88
== END 2021-04-03 12:17 | disposition home or self-care (01) ==
LOC: ORWHC2ENDO 10:08
PROVIDERS: ATTEND Surgery
DX: K21.00 Gastro-esophageal reflux disease with esophagitis, without bleeding (principal); K29.70 Gastritis, unspecified, without bleeding; G40.909 Epilepsy, unspecified, not intractable, without status epilepticus; M79.7 Fibromyalgia; F31.9 Bipolar disorder, unspecified; F17.210 Nicotine dependence, cigarettes, uncomplicated; Z85.41 Personal history of malignant neoplasm of cervix uteri; Z79.899 Other long term (current) drug therapy; Z88.8 Allergy status to other drugs, medicaments and biological substances; Z91.040 Latex allergy status; Z88.2 Allergy status to sulfonamides; Z87.820 Personal history of traumatic brain injury
CPT/HCPCS: 81025; 88305; 43239; J2001; J2704

== ENCOUNTER 2021-04-07 15:18 | Emergency (ER) | payer OTHER ==
[2021-04-07 16:32] VITALS: BP 150/93; PULSE 54; RESP 18; TEMP 98
[2021-04-07] MEDS ORDERED: SODIUM CHLORIDE 0.9% 1,000 ML IV STA (17:31)
[2021-04-07] MEDS ORDERED: ONDANSETRON 4 MG/2 ML VIAL IVP STA (17:31)
[2021-04-07] MEDS ORDERED: PANTOPRAZOLE 40 MG/10 ML VIAL IVP STA (17:32)
[2021-04-07 17:49] LABS: Basophils % (A) 0 %; Eosinophils # (A) 0.2 k/uL (0-0.7); Eosinophils % (A) 1 %; HCT 42.2 % (34.0-46.0); HGB 14.2 gm/dL (11.4-16.0); Lymphocytes # (A) 1.5 k/uL (1.0-4.8); Lymphocytes % (A) 10 %; MCH 29.8 pg (25.0-35.0); MCHC 33.7 g/dL (31.0-37.0); MCV 88.7 fL (80.0-100.0); Mean Platelet Volume 8.5; Monocytes # (A) 0.1 k/uL (0-1.0); Monocytes % (A) 1 %; Neutrophils # (A) 12.6 k/uL (1.3-7.7); Neutrophils % (A) 87 %; Platelet Count 403 k/uL (150-450); RBC 4.76 m/uL (3.80-5.40); RDW 13.8 % (11.5-15.5); WBC 14.5 k/uL (3.8-10.6)
[2021-04-07 18:01] LABS: ALT 15 U/L (4-34); AST 21 U/L (14-36); African American GFR (CKD) >90 (>60 ml/min/1.73 sqM); Alkaline Phosphatase 78 U/L (38-126); Anion Gap 12 mmol/L; Blood Urea Nitrogen 8 mg/dL (7-17); Calcium 10.2 mg/dL (8.4-10.2); Carbon Dioxide 22 mmol/L (22-30); Chloride 108 mmol/L (98-107); Glucose 116 mg/dL (74-99); Lipase 44 U/L (23-300); Non-African American GFR(CKD) >90 (>60 ml/min/1.73 sqM); Potassium 4.1 mmol/L (3.5-5.1); Sodium 142 mmol/L (137-145); Total Bilirubin 0.3 mg/dL (0.2-1.3); Total Protein 7.6 g/dL (6.3-8.2)
--- NOTE | 2021-04-07 18:45 | ED ---
Nausea/Vomiting/Diarrhea HPI - General Chief complaint: Nausea/Vomiting/Diarrhea Stated complaint: Nausea/Vomiting Time Seen by Provider: 04/07/21 17:30 Source: patient Mode of arrival: ambulatory Limitations: no limitations - History of Present Illness Initial comments: 35-year-old female presents to the emergency department with a chief complaint of nausea and vomiting. States this is typical for her that occurs several times throughout the ear which she gets acute episodes of nausea or vomiting. States today's episode started yesterday when she developed nausea and multiple episodes of nonbilious and nonbloody vomiting. She also reports some upper abdominal pain after vomiting episodes. She denies any concerns for STD as her . Denies any urinary or vaginal symptoms. Denies any radiation of abdominal pain. Denies any fevers or chills chest pain or shortness of breath. She does not drink alcohol but does smoke marijuana. - Related Data Home Medications Medication Instructions Recorded Confirmed Gabapentin [Neurontin] 300 mg PO TID 07/30/20 04/01/21 Hydrocodone/Acetaminophen [[place] 1 tab PO TID 07/30/20 04/01/21 7.5-325] ALPRAZolam [Xanax] 0.5 mg PO BID 10/14/20 04/01/21 DULoxetine HCL [Cymbalta] 30 mg PO BID 01/21/21 04/01/21 Previous Rx's Medication Instructions Recorded Metoclopramide [Reglan] 10 mg PO TID PRN #15 tab 04/07/21 Allergies Allergy/AdvReac Type Severity Reaction Status Date / Time latex Allergy Swelling,itching,skin Verified 04/07/21 16:32 redness methocarbamol [From Robaxin] Allergy Rash/Hives Verified 04/07/21 16:32 Sulfa (Sulfonamide Allergy Anaphylaxis Verified 04/07/21 16:32 Antibiotics) propranolol AdvReac "Diabetic Verified 04/07/21 16:32 Issues" Review of Systems ROS Statement: Those systems with pertinent positive or pertinent negative responses have been documented in the HPI. ROS Other: All systems not noted in ROS Statement are negative. Past Medical History Past Medical History: Cancer, Fibromyalgia, Seizure Disorder Additional Past Medical History / Comment(s): hernia, DDD,cervical CA, SEIZURES for approx 6 mos due to a closed head injury (2009), Hx of gestational diabetes., frequent constipation., hernia., States poor vision right eye, liver laceration History of Any Multi-Drug Resistant Organisms: None Reported Past Surgical History: Adenoidectomy, Section, Hernia Repair, Orthopedic Surgery, Tonsillectomy, Tubal Ligation Additional Past Surgical History / Comment(s): cyst removed rt labia, x2, cervical surgery "freezing & scrapping" for cancer. Past Anesthesia/Blood Transfusion Reactions: No Reported Reaction, Motion Sickness Additional Past Anesthesia/Blood Transfusion Reaction / Comment(s): states "grandmother has hx fungal meningitis r/t ear infection/ran high fever with ear surgery-pt not sure if fever r/t meningitis or anesthesia. Past Psychological History: Anxiety, Bipolar, Depression Smoking Status: Current every day smoker Past Alcohol Use History: None Reported Past Drug Use History: Marijuana - Past Family History Mother Family Medical History: Cancer Additional Family Medical History / Comment(s): cervical General Exam Limitations: no limitations General appearance: alert, in no apparent distress Head exam: Present: atraumatic, normocephalic, normal inspection Eye exam: Present: normal appearance, PERRL, EOMI Pupils: Present: normal accommodation ENT exam: Present: normal exam, normal oropharynx, mucous membranes moist Neck exam: Present: normal inspection, full ROM. Absent: tenderness, lymphadenopathy Respiratory exam: Present: normal lung sounds bilaterally. Absent: respiratory distress Cardiovascular Exam: Present: regular rate, normal rhythm, normal heart sounds. Absent: systolic murmur GI/Abdominal exam: Present: soft, tenderness (Epigastric tenderness). Absent: distended, guarding, rebound, rigid Extremities exam: Present: normal inspection, full ROM, normal capillary refill. Absent: tenderness Back exam: Present: normal inspection, full ROM. Absent: tenderness Neurological exam: Present: alert, oriented X3 Psychiatric exam: Present: normal affect, normal mood Skin exam: Present: warm, dry, intact, normal color Course Vital Signs 04/07/21 16:30 Temperature 98.0 F Pulse Rate 54 L Respiratory 18 Rate Blood Pressure 150/93 O2 Sat by Pulse 98 Oximetry Medical Decision Making - Medical Decision Making 35-year-old female presents to emergency with a chief complaint of abdominal pain. On Physical examination, mild upper abdominal tenderness. Patient was given IV fluids, Reglan, Benadryl and Zofran. Reevaluation, she reports it prudent symptoms. Patient was also given Protonix. Patient states she has plenty of Zofran home and does not work for. I will prescribe her Reglan advised to take Benadryl if she experiences any side effects. Laboratory work reveals leukocytosis of 14 K likely secondary to the vomiting. She was advised to follow with the primary care physician. Return parameters were thoroughly discussed the patient is an attending agreeable. Case discussed with Dr. Rogel. . - Lab Data Result diagrams: 04/07/21 17:41 04/07/21 17:41 Lab Results 04/07/21 04/07/21 04/07/21 Range/Units 17:41 17:41 17:41 WBC 14.5 H (3.8-10.6) k/uL RBC 4.76 (3.80-5.40) m/uL Hgb 14.2 (11.4-16.0) gm/dL Hct 42.2 (34.0-46.0) % MCV 88.7 (80.0-100.0) fL MCH 29.8 (25.0-35.0) pg MCHC 33.7 (31.0-37.0) g/dL RDW 13.8 (11.5-15.5) % Plt Count 403 (150-450) k/uL MPV 8.5 Neutrophils % 87 % Lymphocytes % 10 % Monocytes % 1 % Eosinophils % 1 % Basophils % 0 % Neutrophils # 12.6 H (1.3-7.7) k/uL Lymphocytes # 1.5 (1.0-4.8) k/uL Monocytes # 0.1 (0-1.0) k/uL Eosinophils # 0.2 (0-0.7) k/uL Basophils # 0.0 (0-0.2) k/uL Sodium 142 (137-145) mmol/L Potassium 4.1 (3.5-5.1) mmol/L Chloride 108 H (98-107) mmol/L Carbon Dioxide 22 (22-30) mmol/L Anion Gap 12 mmol/L BUN 8 (7-17) mg/dL Creatinine 0.54 (0.52-1.04) mg/dL Est GFR (CKD-EPI)AfAm >90 (>60 ml/min/1.73 sqM) Est GFR (CKD-EPI)NonAf >90 (>60 ml/min/1.73 sqM) Glucose 116 H (74-99) mg/dL Calcium 10.2 (8.4-10.2) mg/dL Total Bilirubin 0.3 (0.2-1.3) mg/dL AST 21 (14-36) U/L ALT 15 (4-34) U/L Alkaline Phosphatase 78 (38-126) U/L Total Protein 7.6 (6.3-8.2) g/dL Albumin 5.0 (3.5-5.0) g/dL Lipase 44 (23-300) U/L Urine Color Yellow Urine Appearance Clear (Clear) Urine pH 8.5 H (5.0-8.0) Ur Specific [place] 1.019 (1.001-1.035) Urine Protein 1+ H (Negative) Urine Glucose (UA) Negative (Negative) Urine Ketones Negative (Negative) Urine Blood Negative (Negative) Urine Nitrite Negative (Negative) Urine Bilirubin Negative (Negative) Urine Urobilinogen <2.0 (<2.0) mg/dL Ur Leukocyte Esterase Negative (Negative) Urine RBC 11 H (0-5) /hpf Urine WBC 1 (0-5) /hpf Ur Squamous Epith Cells 3 (0-4) /hpf Urine Mucus Rare H (None) /hpf Urine HCG, Qual (Not Detectd) 04/07/21 Range/Units 17:41 WBC (3.8-10.6) k/uL RBC (3.80-5.40) m/uL Hgb (11.4-16.0) gm/dL Hct (34.0-46.0) % MCV (80.0-100.0) fL MCH (25.0-35.0) pg MCHC (31.0-37.0) g/dL RDW (11.5-15.5) % Plt Count (150-450) k/uL MPV Neutrophils % % Lymphocytes % % Monocytes % % Eosinophils % % Basophils % % Neutrophils # (1.3-7.7) k/uL Lymphocytes # (1.0-4.8) k/uL Monocytes # (0-1.0) k/uL Eosinophils # (0-0.7) k/uL Basophils # (0-0.2) k/uL Sodium (137-145) mmol/L Potassium (3.5-5.1) mmol/L Chloride (98-107) mmol/L Carbon Dioxide (22-30) mmol/L Anion Gap mmol/L BUN (7-17) mg/dL Creatinine (0.52-1.04) mg/dL Est GFR (CKD-EPI)AfAm (>60 ml/min/1.73 sqM) Est GFR (CKD-EPI)NonAf (>60 ml/min/1.73 sqM) Glucose (74-99) mg/dL Calcium (8.4-10.2) mg/dL Total Bilirubin (0.2-1.3) mg/dL AST (14-36) U/L ALT (4-34) U/L Alkaline Phosphatase (38-126) U/L Total Protein (6.3-8.2) g/dL Albumin (3.5-5.0) g/dL Lipase (23-300) U/L Urine Color Urine Appearance (Clear) Urine pH (5.0-8.0) Ur Specific [place] (1.001-1.035) Urine Protein (Negative) Urine Glucose (UA) (Negative) Urine Ketones (Negative) Urine Blood (Negative) Urine Nitrite (Negative) Urine Bilirubin (Negative) Urine Urobilinogen (<2.0) mg/dL Ur Leukocyte Esterase (Negative) Urine RBC (0-5) /hpf Urine WBC (0-5) /hpf Ur Squamous Epith Cells (0-4) /hpf Urine Mucus (None) /hpf Urine HCG, Qual Not Detected (Not Detectd) Disposition Clinical Impression: Nausea & vomiting, Abdominal pain Disposition: HOME SELF-CARE Condition: Stable Instructions (If sedation given, give patient instructions): Acute Nausea and Vomiting (ED) Additional Instructions: Please return to the Emergency Department if symptoms worsen or any other concerns. Prescriptions: Metoclopramide [Reglan] 10 mg PO TID PRN #15 tab PRN Reason: GERD Is patient prescribed a controlled substance at d/c from ED?: No Referrals: Joao Stockton MD [Primary Care Provider] - 1-2 days Time of Disposition: 19:30
[2021-04-07] MEDS ORDERED: HYDROcodone/APAP 5-325MG 1 EACH TAB PO STA (19:05)
[2021-04-07] MEDS ORDERED: diphenhydrAMINE 50 MG/ML 1 ML VIAL IVP STA (19:05)
[2021-04-07] MEDS ORDERED: METOCLOPRAMIDE 5 MG/ML 2 ML VIAL IVP STA (19:05)
[2021-04-07 19:28] LABS: Appearance,Urine Clear (Clear); Bilirubin,Urine Negative (Negative); Blood,Urine Negative (Negative); Color,Urine Yellow; Glucose,Urine (UA) Negative (Negative); Ketones,Urine Negative (Negative); Leukocyte Esterase,Urine Negative (Negative); Mucus,Urine Rare /hpf; Nitrite,Urine Negative (Negative); PH, Urine 8.5 (5.0-8.0); Protein,Urine 1+ (Negative); RBC,Urine 11 /hpf (0-5); Specific Gravity,Urine 1.019 (1.001-1.035); Squamous Epithelial Cell,Urine 3 /hpf (0-4); Urobilinogen,Urine <2.0 mg/dL (<2.0); WBC,Urine 1 /hpf (0-5)
== END 2021-04-07 19:52 | disposition home or self-care (01) ==
LOC: EC 15:18
DX: R11.2 Nausea with vomiting, unspecified (principal); R10.10 Upper abdominal pain, unspecified; R19.7 Diarrhea, unspecified; M79.7 Fibromyalgia; Z79.899 Other long term (current) drug therapy; F17.200 Nicotine dependence, unspecified, uncomplicated; Z91.040 Latex allergy status; Z88.2 Allergy status to sulfonamides; Z88.8 Allergy status to other drugs, medicaments and biological substances
CPT/HCPCS: 99284; 96374; 96375; 96361; 36415; 80053; 83690; 85025; 81001; 81025; J1200; J2765; J2405; C9113

== ENCOUNTER 2021-10-20 06:08 | Emergency (ER) | payer OTHER ==
[2021-10-20 06:13] VITALS: RESP 24; TEMP 97.1
[2021-10-20] MEDS ORDERED: SODIUM CHLORIDE 0.9% 500 ML 500 ML IV STA (06:24)
[2021-10-20] MEDS ORDERED: HYDROmorphone 0.5 MG/0.5 ML SYRINGE IVP STA (06:24)
[2021-10-20] MEDS ORDERED: ONDANSETRON 4 MG/2 ML VIAL IVP STA (06:24)
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
[2021-10-20 06:49] LABS: Basophils # (A) 0.1 k/uL (0-0.2); Basophils % (A) 1 %; Eosinophils # (A) 0.3 k/uL (0-0.7); Eosinophils % (A) 2 %; HGB 12.9 gm/dL (11.4-16.0); Lymphocytes % (A) 14 %; MCH 30.2 pg (25.0-35.0); MCHC 33.9 g/dL (31.0-37.0); MCV 89.3 fL (80.0-100.0); Mean Platelet Volume 8.5; Monocytes # (A) 0.4 k/uL (0-1.0); Monocytes % (A) 3 %; Neutrophils # (A) 11.5 k/uL (1.3-7.7); Neutrophils % (A) 81 %; Platelet Count 282 k/uL (150-450); RBC 4.26 m/uL (3.80-5.40); RDW 13.4 % (11.5-15.5); WBC 14.3 k/uL (3.8-10.6)
[2021-10-20 07:06] LABS: ALT 17 U/L (4-34); AST 18 U/L (14-36); African American GFR (CKD) 77 (>60 ml/min/1.73 sqM); Albumin 4.2 g/dL (3.5-5.0); Alcohol <10 mg/dL; Alkaline Phosphatase 66 U/L (38-126); Anion Gap 12 mmol/L; Blood Urea Nitrogen 17 mg/dL (7-17); Calcium 9.4 mg/dL (8.4-10.2); Carbon Dioxide 25 mmol/L (22-30); Chloride 99 mmol/L (98-107); Glucose 106 mg/dL (74-99); Non-African American GFR(CKD) 67 (>60 ml/min/1.73 sqM); Potassium 4.1 mmol/L (3.5-5.1); Sodium 136 mmol/L (137-145); Total Bilirubin 0.3 mg/dL (0.2-1.3); Total Protein 6.6 g/dL (6.3-8.2)
[2021-10-20 07:14] LABS: INR 0.9 (<1.2); Partial Thromboplastin Time 23.1 sec (22.0-30.0); Prothrombin Time 9.7 sec (9.0-12.0)
[2021-10-20 07:18] LABS: Amorphous Sediment,Urine Occasional /hpf; Appearance,Urine Cloudy (Clear); Bacteria,Urine Moderate /hpf; Bilirubin,Urine Negative (Negative); Blood,Urine Small (Negative); Cocaine Screen,Urine Detected (NotDetected); Color,Urine Yellow; Glucose,Urine (UA) Negative (Negative); Ketones,Urine Negative (Negative); Leukocyte Esterase,Urine Large (Negative); Mucus,Urine Rare /hpf; Nitrite,Urine Positive (Negative); Phencyclidine Screen,Urine Not Detected (NotDetected); Protein,Urine 1+ (Negative); RBC,Urine 5 /hpf (0-5); Specific Gravity,Urine 1.016 (1.001-1.035); Squamous Epithelial Cell,Urine 9 /hpf (0-4); Urn Cannabinoid Scrn Detected (NotDetected); Urobilinogen,Urine <2.0 mg/dL (<2.0); WBC,Urine 130 /hpf (0-5)
[2021-10-20 07:19] LABS: Amphetamine Screen,Urine Detected (NotDetected); Barbiturate Screen,Urine Not Detected (NotDetected); Benzodiazepines Screen,Urine Not Detected (NotDetected); Methadone Screen, Urine Not Detected (NotDetected); Opiate Screen,Urine Detected (NotDetected); Oxycodone Screen, Urine Not Detected (NotDetected); Tricyclic Antidepressant,Urine Not Detected (NotDetected)
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
[2021-10-20 07:50] VITALS: BP 128/85; PULSE 112
[2021-10-20] MEDS ORDERED: cefTRIAXone IN SWFI 1,000 MG/10 ML SYRINGE IVP STA (08:06)
== END 2021-10-20 08:54 | disposition home or self-care (01) ==
LOC: EC 06:08
DX: N12 Tubulo-interstitial nephritis, not specified as acute or chronic (principal); F19.10 Other psychoactive substance abuse, uncomplicated; G40.909 Epilepsy, unspecified, not intractable, without status epilepticus; F41.9 Anxiety disorder, unspecified; F31.9 Bipolar disorder, unspecified; F12.90 Cannabis use, unspecified, uncomplicated; F17.200 Nicotine dependence, unspecified, uncomplicated; V47.5XXA Car driver injured in collision with fixed or stationary object in traffic accident, initial encounter
CPT/HCPCS: 36415; 86900; 86901; 80053; 85025; 85610; 85730; 86850; 81001; 81025; 80306; 87086; 71260; 74177; 99284; 96374; 96375 ×2; 96361 ×2; G0480; J2405; J0696; J1170; Q9967; 80320

== ENCOUNTER 2023-10-08 14:00 | Emergency (ER) | payer OTHER ==
--- NOTE | 2023-10-08 14:18 | ED ---
General Adult HPI - General Source: patient, RN notes reviewed Mode of arrival: ambulatory Limitations: no limitations <Ayo Kelly - Last Filed: 10/08/23 14:15> <Viji Eubanks - Last Filed: 10/08/23 18:57> - General Stated complaint: upper left leg infection Time Seen by Provider: 10/08/23 14:15 - History of Present Illness Initial comments: 38-year-old female presents emergency Department when the left leg infection. Patient states that over the last few days. Patient states that swelling left thigh states that she has an abscess she attempted pop. (Ayo Kelly) Quick note reviewed: This is a pleasant 38-year-old female who presents the emergency department with possible abscess. Patient reports that she noticed the abscess a few days ago where she attempted to self excising it. She reports worsening pain, swelling and bruising to the area. She reports worsening pain due to her thighs rubbing together when she walks. She denies history of diabetes. Denies known fevers. (Viji Eubanks) - Related Data Previous Rx's Medication Instructions Recorded Cephalexin [Keflex] 500 mg PO Q8HR #21 cap 10/08/23 clindamycin HCL 300 mg PO BID #14 cap 10/08/23 Allergies Allergy/AdvReac Type Severity Reaction Status Date / Time latex Allergy Swelling,itching,skin Verified 10/08/23 15:39 redness methocarbamol [From Robaxin] Allergy Rash/Hives Verified 10/08/23 15:39 Sulfa (Sulfonamide Allergy Anaphylaxis Verified 10/08/23 15:39 Antibiotics) propranolol AdvReac "Diabetic Verified 10/08/23 15:39 Issues" Review of Systems ROS Other: All systems not noted in ROS Statement are negative. <Ayo Kelly - Last Filed: 10/08/23 14:15> ROS Other: All systems not noted in ROS Statement are negative. <Viji Eubanks - Last Filed: 10/08/23 18:57> ROS Statement: Those systems with pertinent positive or pertinent negative responses have been documented in the HPI. Past Medical History Past Medical History: Cancer, Fibromyalgia, Seizure Disorder Additional Past Medical History / Comment(s): hernia, DDD,cervical CA, SEIZURES for approx 6 mos due to a closed head injury (2009), Hx of gestational diabetes., frequent constipation., hernia., States poor vision right eye, liver laceration History of Any Multi-Drug Resistant Organisms: None Reported Past Surgical History: Adenoidectomy, Section, Hernia Repair, Orthopedic Surgery, Tonsillectomy, Tubal Ligation Additional Past Surgical History / Comment(s): cyst removed rt labia, x2, cervical surgery "freezing & scrapping" for cancer. Past Anesthesia/Blood Transfusion Reactions: No Reported Reaction, Motion Sickness Additional Past Anesthesia/Blood Transfusion Reaction / Comment(s): states "grandmother has hx fungal meningitis r/t ear infection/ran high fever with ear surgery-pt not sure if fever r/t meningitis or anesthesia. Past Psychological History: Anxiety, Bipolar, Depression Smoking Status: Current every day smoker Past Alcohol Use History: None Reported Past Drug Use History: Marijuana - Past Family History Mother Family Medical History: Cancer Additional Family Medical History / Comment(s): cervical <Ayo Kelly - Last Filed: 10/08/23 14:15> General Exam <Ayo Kelly - Last Filed: 10/08/23 14:15> <Viji Eubanks - Last Filed: 10/08/23 18:57> - General Exam Comments Initial Comments: Visual Physical Exam Vital signs reviewed General: Well-appearing, nontoxic, no acute distress. Head: Normocephalic, atraumatic Eyes: PERRLA, EOMI ENT: Airway patent Chest: Nonlabored breathing Skin: No visual rash, normal skin tone Neuro: Alert and oriented 3 Musculoskeletal: No gross abnormalities (Ayo Kelly) General: Alert, in no acute distress Head: atraumatic normocephalic. Eyes PERRL, EOMI intact, mucous membranes moist Respiratory: Lungs clear to auscultation bilaterally Cardiovascular: Heart rate regular rate and rhythm Abdominal: Soft without guarding or rebound Extremities: Normal inspection with full range of motion and normal capillary refill left upper thigh with 1 cm lesion that is hard. There is surrounding ecchymosis. Not warm. No fluctuance. Neuroogic: alert and oriented 3, CN II-XII intact, able to ambulate with steady gait Skin: warm dry and intact with normal color (Viji Eubanks) Course Vital Signs 12/22/23 12/22/23 14:30 16:23 Temperature 98.6 F Pulse Rate 77 78 Respiratory 16 20 Rate Blood Pressure 126/76 122/74 O2 Sat by Pulse 99 98 Oximetry Procedures - Incision & Drainage Consent Obtained: verbal consent Indication: abscess Site: other (left thigh ) Anesthetic Used: lidocaine 1% Amount (mLs): 1 I&D Cleaning Method: Chloroprep Sterile Field Used?: No Scalpel Used: #11 I&D Drainage Obtained: Pus, Blood Loculation Noted: probing needed to break Insertion of drain: No Culture Obtained?: Yes Complications: pain, bleeding Patient Tolerated Procedure: well, no complications <Viji Eubanks - Last Filed: 10/08/23 18:57> Medical Decision Making <Ayo Kelly - Last Filed: 10/08/23 14:15> <Viji Eubanks - Last Filed: 10/08/23 18:57> - Medical Decision Making I completed the quick note portion of this chart signed Ayo Kelly PA-C (Ayo Kelly) Was pt. sent in by a medical professional or institution ([facility], [employer], urgent care, hospital, or prison...) When possible be specific @ -[No] Did you speak to anyone other than the patient for history (EMS, parent, family, police, friend...)? What history was obtained from this source @ -[No] Did you review nursing and triage notes (agree or disagree)? Why? @ -[I reviewed and agree with nursing and triage notes] Were old charts reviewed (outside hosp., previous admission, EMS record, old EKG, old radiological studies, urgent care reports/EKG's, prison records)? Report findings @ -[No old charts were reviewed] Differential Diagnosis (chest pain, altered mental status, abdominal pain women, abdominal pain men, vaginal bleeding, weakness, fever, dyspnea, syncope, headache, dizziness, GI bleed, back pain, seizure, CVA, palpatations, mental health, musculoskeletal)? @ -[not applicable] EKG interpreted by me (3pts min.). @ -[As above] X-rays interpreted by me (1pt min.). @ -[None done] CT interpreted by me (1pt min.). @ -[None done] U/S interpreted by me (1pt. min.). @ -[None done] What testing was considered but not performed or refused? (CT, X-rays, U/S, labs)? Why? @ -[None] What meds were considered but not given or refused? Why? @ -[None] Did you discuss the management of the patient with other professionals (professionals i.e. , PA, [employer], lab, RT, psych nurse, social work specialist, debt recovery officer, teacher, environmental protection officer, case assistant)? Give summary @ -[No] Was smoking cessation discussed for >3mins.? @ -[No] Was critical care preformed (if so, how long)? @ -[No] Were there social determinants of health that impacted care today? How? (Homelessness, low income, unemployed, alcoholism, drug addiction, transportation, low edu. Level, literacy, decrease access to med. care, nursing home, rehab)? @ -[No] Was there de-escalation of care discussed even if they declined (Discuss DNR or withdrawal of care, Hospice)? DNR status @ -[No] What co-morbidities impacted this encounter? (DM, HTN, Smoking, COPD, CAD, Cancer, CVA, ARF, Chemo, Hep., AIDS, mental health diagnosis, sleep apnea, morbid obesity)? @ -[None] Was patient admitted / discharged? Hospital course, mention meds given and route, prescriptions, significant lab abnormalities, going to OR and other pertinent info. @ -Charge. This is a pleasant 38-year-old female who presents the emergency department with abscess. 1 cm tender, mobile nonfluctuant lesion to left thigh. Patient had incision and drainage procedure performed. 1 mL of purulent discharge removed. Patient had abscess site parole and flushed. Loculations were broken up. Patient started on clindamycin and Keflex. Wound culture pending. Return precautions discussed at length. Discharge in stable condition. Case discussed with Dr. Leggett, ED attending who agrees with plan of care Undiagnosed new problem with uncertain prognosis? @ -[No] Drug Therapy requiring intensive monitoring for toxicity (Heparin, Nitro, Insulin, Cardizem)? @ -[No] Were any procedures done? @ -[No] Diagnosis/symptom? @ -Abscess Acute, or Chronic, or Acute on Chronic? @ -Acute Uncomplicated (without systemic symptoms) or Complicated (systemic symptoms)? @ -Uncomplicated Side effects of treatment? @ -[No] Exacerbation, Progression, or Severe Exacerbation? @ -[No] Poses a threat to life or bodily function? How? (Chest pain, [place], [place], pneumonia, PE, COPD, DKA, ARF, appy, cholecystitis, CVA, Diverticulitis, Homicidal, Suicidal, threat to staff... and all critical care pts) @ -Low likelihood (Viji Eubanks) - Lab Data Lab Results 10/08/23 Range/Units 15:28 Urine HCG, Qual Not Detected (Not Detectd) Disposition <Ayo Kelly - Last Filed: 10/08/23 14:15> Is patient prescribed a controlled substance at d/c from ED?: No Time of Disposition: 16:03 <Viji Eubanks - Last Filed: 10/08/23 18:57> Clinical Impression: Abscess Disposition: HOME SELF-CARE Condition: Stable Instructions (If sedation given, give patient instructions): Abscess Incision and Drainage (ED), Abscess (ED) Prescriptions: clindamycin HCL 300 mg PO BID #14 cap Cephalexin [Keflex] 500 mg PO Q8HR #21 cap Referrals: None,Stated [Primary Care Provider] - 1-2 days Forms: Area [facility]
[2023-10-08 14:40] VITALS: TEMP 98.6
[2023-10-08] MEDS ORDERED: LIDOCAINE 1% INJ 10MG/ML (20 ML MDV) SQ ONE (15:11)
[2023-10-08] MEDS ORDERED: KETOROLAC 15 MG/ML 1 ML VIAL IM STA (15:11)
[2023-10-08] MEDS ORDERED: CEPHALEXIN 500 MG CAP PO STA (15:12)
[2023-10-08] MEDS ORDERED: CLINDAMYCIN 150 MG CAP PO STA (15:12)
[2023-10-08] MEDS ORDERED: ALPRAZolam 0.25 MG TAB PO STA (16:02)
[2023-10-08 16:38] VITALS: BP 122/74; PULSE 78; RESP 20
== END 2023-10-08 16:25 | disposition home or self-care (01) ==
LOC: EC 14:00
DX: L02.416 Cutaneous abscess of left lower limb (principal); F17.200 Nicotine dependence, unspecified, uncomplicated; F12.90 Cannabis use, unspecified, uncomplicated; Z86.59 Personal history of other mental and behavioral disorders; Z91.040 Latex allergy status; Z88.2 Allergy status to sulfonamides; Z88.6 Allergy status to analgesic agent; Z88.8 Allergy status to other drugs, medicaments and biological substances; Z88.1 Allergy status to other antibiotic agents
CPT/HCPCS: 81025; 87070; 87205; 99283; 96372; 10060; J2001; J1885; 87077; 87186

== ENCOUNTER → 2024-10-09 | Outpatient (CLI) | payer OTHER ==
[2024-10-09 19:28] LABS: Basophils # (A) 0.08 X 10*3/uL (0.00-0.10); Basophils % (A) 1.2 %; Eosinophils # (A) 0.21 X 10*3/uL (0.04-0.35); Eosinophils % (A) 3.1 %; HCT 42.2 % (37.2-46.3); HGB 13.4 g/dL (12.0-15.0); Lymphocytes % (A) 38.5 %; MCH 27.9 pg (27.0-32.0); MCHC 31.8 g/dL (32.0-37.0); MCV 87.9 FL (80.0-97.0); Mean Platelet Volume 11.8 FL (9.5-12.2); Monocytes # (A) 0.41 X 10*3/uL (0.20-1.00); Monocytes % (A) 6.1 %; NRBC Per 100 WBC 0 X 10*3/uL (0.00-0.01); Neutrophils # (A) 3.43 X 10*3/uL (1.80-7.70); Neutrophils % (A) 50.8 %; Platelet Count 262 X 10*3/uL (140-440); RDW 12.6 % (11.5-14.5); WBC 6.75 X 10*3/uL (4.50-10.00)
[2024-10-09 19:31] LABS: Appearance,Urine Clear (Clear); Bilirubin,Urine Negative (Negative); Blood,Urine Negative (Negative); Color,Urine Yellow (Yellow); Ketones,Urine Negative (Negative); Nitrite,Urine Negative (Negative); PH, Urine 6.5; Specific Gravity,Urine 1.016 (1.001-1.030); Urobilinogen,Urine 0.2 E.U./DL
[2024-10-10 02:46] LABS: Hepatitis B Surface Antigen Nonreactive (Nonreactive); Hepatitis C IgG Antibody Nonreactive (Nonreactive)
[2024-10-10 03:09] LABS: ALT 17 U/L (8-44); AST 19 U/L (13-35); Alkaline Phosphatase 63 U/L (41-126); BUN/Creat Ratio 10.57 Ratio (12.00-20.00); Blood Urea Nitrogen 7.4 mg/dL (9.0-27.0); Calcium 9.1 mg/dL (8.7-10.3); Carbon Dioxide 26.1 mmol/L (21.6-31.8); Chloride 104 mmol/L (96-109); Glucose 106 mg/dL (70-110); Potassium 4.2 mmol/L (3.5-5.5); Sodium 140 mmol/L (135-145); Total Bilirubin 0.2 mg/dL (0.3-1.2)
== END | disposition home or self-care (01) ==
LOC: LABWHC1 14:02
PROVIDERS: ATTEND Family Medicine
DX: F11.21 Opioid dependence, in remission (principal)
CPT/HCPCS: 36415; 80053; 81003; 85025; 86780; 86803; 87340